=== PATIENT | female | born 1955 | race Caucasian/White ===

== ENCOUNTER 2016-05-08 15:41 | Observation (INO) | payer MEDICARE, OTHER ==
[2016-05-08 17:17] LABS: HEMOGLOBIN 8.4 g/dL (12.0-15.5); HGB HCT DIFFERENCE -1.8; MEAN CORPUSCULAR HEMOGLOBIN 25.8 pg (27.0-33.4); MEAN CORPUSCULAR VOLUME 83 fl (80-97); RED BLOOD COUNT 3.25 10^6/uL (3.72-5.28); RED CELL DISTRIBUTION WIDTH 16.2 % (11.5-14.0); WHITE BLOOD COUNT 12.2 10^3/uL (4.0-10.5)
[2016-05-08] MEDS ORDERED: (PENDING PHARMACY ID) (Oxycodone Hcl/Acetaminophen [Oxycodone-Acetaminophen 10-325] 1 TAB) PO SCH (17:30)
[2016-05-08] MEDS ORDERED: OXYCODONE-ACETAMINOPHEN 5-325 MG TABLET PO PRN (18:00)
[2016-05-08] MEDS ORDERED: OXYCODONE HCL IR 5 MG TABLET PO PRN (18:00)
[2016-05-08] MEDS ORDERED: OXYCODONE HCL IR 5 MG TABLET PO ONE (19:30)
[2016-05-08] MEDS ORDERED: CLONAZEPAM 1 MG TABLET PO ONE (19:45)
[2016-05-08] MEDS: IPRATROPIUM/ALBUTEROL 0.5-2.5 MG/3 ML AMPUL NEB PRN (20:08)
[2016-05-08] MEDS ORDERED: (PENDING PHARMACY ID) (Quetiapine Fumarate [Seroquel Xr] 200 MG) PO SCH (22:00)
[2016-05-08] MEDS ORDERED: (PENDING PHARMACY ID) (Bupropion Hcl [Bupropion Xl] 150 MG) PO SCH (22:00)
[2016-05-08] MEDS ORDERED: CLOPIDOGREL BISULFATE 75 MG TABLET PO SCH (22:00)
[2016-05-08] MEDS ORDERED: (PENDING PHARMACY ID) (Melatonin [Melatonin] 10 MG) PO SCH (22:00)
[2016-05-09] MEDS: BUDESONIDE/FORMOTEROL 160-4.5 MCG 60 PUFF/6 GM MDI IH SCH ×2 (00:15→09:37)
[2016-05-09] MEDS: OXYCODONE HCL SR 10 MG TABLET PO SCH ×3 (00:15→13:26)
[2016-05-09] MEDS: IPRATROPIUM/ALBUTEROL 0.5-2.5 MG/3 ML AMPUL NEB PRN ×2 (05:39→14:05)
[2016-05-09 09:07] LABS: HEMATOCRIT 36.4 % (36.0-47.0); HGB HCT DIFFERENCE -2.2; MEAN CORPUSCULAR HEMOGLOBIN 26.7 pg (27.0-33.4); MEAN CORPUSCULAR HGB CONC 31.3 g/dL (32.0-36.0); MEAN CORPUSCULAR VOLUME 85 fl (80-97); RED BLOOD COUNT 4.27 10^6/uL (3.72-5.28); RED CELL DISTRIBUTION WIDTH 15.9 % (11.5-14.0); WHITE BLOOD COUNT 13.7 10^3/uL (4.0-10.5)
[2016-05-09 09:11] LABS: HEMOGLOBIN 11.4 g/dL (12.0-15.5)
[2016-05-09] MEDS: CLONAZEPAM 1 MG TABLET PO SCH ×2 (09:38→17:46)
[2016-05-09] MEDS ORDERED: ATENOLOL 50 MG TABLET PO SCH (10:00)
[2016-05-09] MEDS ORDERED: (PENDING PHARMACY ID) (Roflumilast [Daliresp 500 Mcg Tablet] 500 MCG) PO SCH (10:00)
[2016-05-09] MEDS ORDERED: (PENDING PHARMACY ID) (Tiotropium Br/Olodaterol Hcl [Stiolto Respimat Inhal Spray] 4 GM) IH SCH (10:00)
[2016-05-09] MEDS ORDERED: ZOLPIDEM TARTRATE 10 MG SL SCH (10:00)
[2016-05-09] MEDS ORDERED: (PENDING PHARMACY ID) (Ubidecarenone [Coq-10] 200 MG) PO SCH (10:00)
[2016-05-09] MEDS ORDERED: IRON POLYSACCHARIDES COMPLEX 150 MG CAPSULE PO SCH (10:00)
[2016-05-09] MEDS ORDERED: (PENDING PHARMACY ID) (Atenolol [Tenormin] 25 MG) PO SCH (10:00)
[2016-05-09] MEDS ORDERED: ROFLUMILAST 500 MCG TABLET PO SCH (10:00)
[2016-05-09] MEDS ORDERED: VALSARTAN 80 MG TABLET PO SCH (10:00)
[2016-05-09 17:43] VITALS: BP 114/55
--- NOTE | 2016-05-09 19:19 | PDOC H&P ---
History of Present Illness Admission Date/PCP: 05/08/16 15:42 HAZEL WYLIE, History of Present Illness: ROSALINDA SAGE is a 61 year old female, she was admitted because of severe anemia with hemoglobin of 7.1, iron deficiency type. She was seen in the office yesterday, she had a hemogram done result came back this morning showing 7.1, hemoglobin, she was admitted directly from home for observation and blood transfusion. She recently had colonoscopy done and it was negative Past Medical History Cardiac Medical History: Reports: Hyperlipidema, Hypertension Pulmonary Medical History: Reports: Chronic Obstructive Pulmonary Disease (COPD) , Pneumonia Neurological Medical History: Reports: Seizures Endocrine Medical History: Reports: Diabetes Mellitus Type 2 Malignancy Medical History: Reports: Lung Cancer - under no treatment Musculoskeltal Medical History: Reports: Arthritis Psychiatric Medical History: Reports: Depression Past Surgical History Past Surgical History: Reports: Appendectomy, Cardiac Catheterization, Section - x3, Cholecystectomy, Hysterectomy, Vascular Surgery - left femoral artery bypass Social History Smoking Status: Former Smoker Frequency of Alcohol Use: None Hx Recreational Drug Use: No Drugs: None Hx Prescription Drug Abuse: No Family History Family History: Reviewed & Not Pertinent, Hypertension, Malignancy Parental Family History Reviewed: Yes Children Family History Reviewed: Yes Sibling(s) Family History Reviewed.: Yes Medication/Allergy Home Medications: RX: Alendronate Sodium [Fosamax 70 mg Tablet] 70 mg PO CASTAÑEDA 10/06/14 RX: Atenolol [Tenormin] 25 mg PO DAILY 10/06/14 RX: Bupropion HCl [Bupropion Xl] 150 mg PO QHS 10/06/14 RX: Clopidogrel Bisulfate [Plavix 75 mg Tablet] 75 mg PO QHS 10/06/14 RX: Fentanyl [Duragesic 25 mcg/hr Transdermal Patch] 1 patch TOP Q72H 10/06/14 RX: Quetiapine Fumarate [Seroquel Xr] 200 mg PO QHS 10/06/14 RX: Ubidecarenone [Coq-10] 200 mg PO DAILY 10/06/14 Zolpidem Tartrate [Edluar SL 10 mg Tablet] 10 mg SL QHS #0 10/06/14 Levofloxacin [Levaquin] 750 mg PO DAILY #14 tablet 10/12/14 Linezolid [Zyvox 600 mg Tablet] 600 mg PO Q12 #14 tablet 10/12/14 RX: Melatonin 10 mg PO QHS 08/18/15 RX: Roflumilast [Daliresp 500 mcg Tablet] 500 mcg PO DAILY 08/18/15 RX: Valsartan 80 mg PO DAILY 08/18/15 RX: Oxycodone HCl [Oxycontin] 40 mg PO Q8H 09/11/15 RX: Ipratropium/Albuterol Sulfate [Duoneb 3 ml Ampul] 3 ml NEB RTQ6HP PRN RX: Iron Polysaccharide Complex [Ferrex 150] 150 mg PO DAILY 04/13/16 RX: Oxycodone HCl/Acetaminophen [Oxycodone-Acetaminophen 10-325] 1 tab PO Q6H RX: Clonazepam [Klonopin] 1 mg PO BID #60 tablet 04/22/16 RX: Zolpidem Tartrate [Edluar SL 10 mg Tablet] 10 mg SL DAILY #30 tab.subl 04/22 RX: Budesonide/Formoterol Fumarate [Symbicort HFA 160-4.5 mcg Inhaler 6 gm] 1 puff IH Q12 05/08/16 RX: Tiotropium Br/Olodaterol HCl [Stiolto Respimat Inhal [place]] 4 gm IH DAILY Allergies/Adverse Reactions: adhesive tape Allergy (Verified 08/18/15 00:15) Review of Systems Constitutional: PRESENT: fatigue. ABSENT: chills, fever(s), headache(s), weight gain, weight loss Eyes: ABSENT: visual disturbances Ears: ABSENT: hearing changes Cardiovascular: PRESENT: dyspnea on exertion Respiratory: PRESENT: dyspnea Gastrointestinal: ABSENT: abdominal pain, constipation, diarrhea, hematemesis, hematochezia, nausea, vomiting Genitourinary: ABSENT: dysuria, hematuria Musculoskeletal: ABSENT: joint swelling Integumentary: ABSENT: rash, wounds Neurological: ABSENT: abnormal gait, abnormal speech, confusion, dizziness, focal weakness, syncope Psychiatric: ABSENT: anxiety, depression, homidical ideation, suicidal ideation Endocrine: ABSENT: cold intolerance, heat intolerance, menstrual abnormalities, polydipsia, polyuria Hematologic/Lymphatic: ABSENT: easy bleeding, easy bruising, lymphadenopathy Physical Exam Vital Signs: Temp Pulse Resp BP Pulse Ox 97.4 F 86 18 114/55 L 93 01/05/17 17:04 05/09/16 17:04 05/09/16 17:04 05/09/16 17:04 05/09/16 17:04 Intake & Output 05/08/16 05/09/16 05/10/16 06:59 06:59 06:59 Intake Total 1960 1232 Output Total 400 1150 Balance 1560 82 Weight 64.6 kg General appearance: PRESENT: no acute distress, well-developed, well-nourished Head exam: PRESENT: atraumatic, normocephalic Eye exam: PRESENT: conjunctiva pink, EOMI, PERRLA. ABSENT: scleral icterus Ear exam: PRESENT: normal external ear exam Mouth exam: PRESENT: moist, tongue midline Neck exam: PRESENT: full ROM. ABSENT: carotid bruit, JVD, lymphadenopathy, thyromegaly Respiratory exam: PRESENT: clear to auscultation sherry Cardiovascular exam: PRESENT: +S1, +S2 GI/Abdominal exam: PRESENT: normal bowel sounds, soft Rectal exam: PRESENT: deferred Neurological exam: PRESENT: alert, awake, oriented to person, oriented to place , oriented to time, oriented to situation, CN II-XII grossly intact. ABSENT: motor sensory deficit Psychiatric exam: PRESENT: appropriate affect, normal mood. ABSENT: homicidal ideation, suicidal ideation Skin exam: PRESENT: dry, intact, warm Results Laboratory Results: 05/09/16 08:45 05/08/16 05/09/16 17:05 08:45 WBC 13.7 H RBC 4.27 Hgb 11.4 L D Hct 36.4 MCV 85 MCH 26.7 L MCHC 31.3 L RDW 15.9 H Plt Count 297 Blood Type A POSITIVE Antibody Screen NEGATIVE Assessment & Plan - Diagnosis (1) Iron deficiency anemia Qualifiers: Iron deficiency anemia type: unspecified iron deficiency Qualified Code(s): D50.9 - Iron deficiency anemia, unspecified Is this a current diagnosis for this admission?: YesPlan: She is admitted for blood transfusion
[2016-05-09] MEDS ORDERED: ZOLPIDEM TARTRATE 5 MG TABLET PO SCH (22:00)
[2016-05-12] MEDS ORDERED: ALENDRONATE SODIUM 10 MG TABLET PO SCH (06:00)
[2016-05-12] MEDS ORDERED: (PENDING PHARMACY ID) (Alendronate Sodium [Fosamax 70 Mg Tablet] 70 MG) PO SCH (17:26)
== END 2016-05-09 19:25 | disposition home or self-care (01) ==
LOC: 4N 15:42
PROVIDERS: ADMIT Internal Medicine; ATTEND Internal Medicine
PROC: 30233N1 Transfusion of Nonautologous Red Blood Cells into Peripheral Vein, Percutaneous Approach (ICD-10-PCS; principal; 2016-05-08)
DX: D50.9 Iron deficiency anemia, unspecified (principal); E78.5 Hyperlipidemia, unspecified; I10 Essential (primary) hypertension; J44.9 Chronic obstructive pulmonary disease, unspecified; R56.9 Unspecified convulsions; E11.9 Type 2 diabetes mellitus without complications; M19.90 Unspecified osteoarthritis, unspecified site; F32.9 Major depressive disorder, single episode, unspecified; Z87.891 Personal history of nicotine dependence; Z85.118 Personal history of other malignant neoplasm of bronchus and lung
CPT/HCPCS: 86900; 86901; 36415 ×2; 36430; 86850; 85027 ×2; 86920; 94640 ×2; G0378 ×2; G0379; P9016 ×2; A9270 ×8; J3490; J7620

== ENCOUNTER 2016-07-21 00:55 | Inpatient (IN) | payer MEDICARE, OTHER ==
--- NOTE | 2016-07-21 01:03 | ER Document Report ---
ED Respiratory Problem - General Stated Complaint: DIFFICULTY BREATHING Time seen by provider: 01:03 Mode of Arrival: Medic Information source: Patient, Emergency Med Personnel TRAVEL OUTSIDE OF THE [place] IN LAST 30 DAYS: No - HPI Patient complains to provider of: Cough, Short of breath Onset: This evening Duration: Worse/persistent Quality of pain: No pain Context: Hx COPD Short of Breath: Severe Chest pain/discomfort: Tightness Cough: Nonproductive EMS treatments: Bronchodilators, Solumedrol Associated symptoms: Congestion, Cough, Difficulty breathing, Short of breath Similar symptoms previously: Yes Recently seen / treated by doctor: Yes Notes: Patient is a 61-year-old female with a history of COPD who arrives to the emergency room via EMS on BiPAP for respiratory distress, symptoms have been worsening throughout the day today, she reports a nonproductive cough, denies chest pain, patient also has a history of anemia and gets blood transfusions regularly for this - Related Data Allergies/Adverse Reactions: adhesive tape Allergy (Verified 08/18/15 00:15) Past Medical History - General Information source: Patient, Emergency Med Personnel - Social History Smoking Status: Unknown if Ever Smoked Family History: Reviewed & Not Pertinent, Hypertension, Malignancy - Past Medical History Cardiac Medical History: Reports: Hx Hypercholesterolemia, Hx Hypertension Pulmonary Medical History: Reports: Hx COPD, Hx Pneumonia Neurological Medical History: Reports: Hx Seizures Endocrine Medical History: Reports: Hx Diabetes Mellitus Type 2 Malignancy Medical History: Reports: Hx Lung Cancer - under no treatment Musculoskeltal Medical History: Reports Hx Arthritis Psychiatric Medical History: Reports: Hx Depression Past Surgical History: Reports: Hx Abdominal Surgery - ventral henria, Hx Appendectomy, Hx Cardiac Catheterization, Hx Section - x3, Hx Cholecystectomy, Hx Hysterectomy, Hx Vascular Surgery - left femoral artery bypass. Denies: Hx Cardiac Surgery - Immunizations Immunizations up to date: Yes Hx Diphtheria, Pertussis, Tetanus Vaccination: Yes Hx Pneumococcal Vaccination: 05/05/06 Review of Systems - Review of Systems Constitutional: No symptoms reported EENT: No symptoms reported Cardiovascular: No symptoms reported Respiratory: See HPI Gastrointestinal: No symptoms reported Genitourinary: No symptoms reported Female Genitourinary: No symptoms reported Musculoskeletal: No symptoms reported Skin: No symptoms reported Hematologic/Lymphatic: No symptoms reported Neurological/Psychological: No symptoms reported -: Yes All other systems reviewed and negative Physical Exam - Vital signs Vitals: Resp Pulse Ox 17 100 07/21/16 01:00 07/21/16 01:00 Interpretation: Tachycardic, Tachypneic - General In distress: Moderate - HEENT Head: Normocephalic, Atraumatic Eyes: Normal Conjunctiva: Normal Extraocular movements intact: Yes Eyelashes: Normal Pupils: PERRL Mucous membranes: Dry Pharynx: Normal Neck: Normal - Respiratory Respiratory status: Respiratory distress, Labored, Tachypnea Chest status: Nontender Breath sounds: Nonproductive cough, Rales, Rhonchi Chest palpation: Normal - Cardiovascular Rhythm: Regular, Tachycardia - Abdominal Inspection: Normal Distension: No distension Bowel sounds: Normal Tenderness: Nontender Organomegaly: No organomegaly - Back Back: Normal - Extremities General upper extremity: Normal inspection General lower extremity: Normal inspection - Neurological Neuro grossly intact: Yes Cognition: Normal Orientation: AAOx4 Yanna Coma Scale Eye Opening: Spontaneous [place] Coma Scale Verbal: Oriented [place] Coma Scale Motor: Obeys Commands [place] Coma Scale Total: 15 - Skin Skin Temperature: Warm Skin Moisture: Dry Skin Color: Pale Course - Re-evaluation Re-evalutation: 07/21/16 03:40 Patient was discussed with primary care provider who agrees to admit for further evaluation and treatment 07/21/16 03:40 Patient resting comfortably on BiPAP, vital signs are stable, no complaints - Vital Signs Vital signs: Temp Pulse Resp BP Pulse Ox 24 H 111/59 L 100 07/21/16 01:02 07/21/16 01:01 07/21/16 01:02 - Laboratory Result Diagrams: 07/21/16 01:10 07/21/16 02:41 Laboratory results interpreted by me: 07/21/16 07/21/16 07/21/16 01:10 01:10 01:10 WBC 22.3 H RBC 2.86 L Hgb 7.9 L Hct 25.1 L MCHC 31.6 L RDW 15.8 H Seg Neuts % (Manual) 90 H Lymphocytes % (Manual) 5 L Abs Neuts (Manual) 20.1 H VBG pCO2 64.5 H VBG HCO3 37.6 H Total Protein Albumin Urine Ascorbic Acid Crossmatch See Detail 07/21/16 07/21/16 02:41 02:50 WBC RBC Hgb Hct MCHC RDW Seg Neuts % (Manual) Lymphocytes % (Manual) Abs Neuts (Manual) VBG pCO2 VBG HCO3 Total Protein 5.6 L Albumin 3.2 L Urine Ascorbic Acid 40 H Crossmatch - Diagnostic Test Radiology reviewed: Image reviewed, Reports reviewed - EKG Interpretation by Me EKG shows normal: Sinus rhythm Rate: Tachycardia Critical Care Note - Critical Care Note Total time excluding time spent on procedures (mins): 60 Comments: Patient arrived in respiratory distress on BiPAP, required frequent reevaluation , multiple breathing treatments, continued BiPAP, and admission to [facility] Discharge - Discharge Clinical Impression: Chronic obstructive pulmonary disease with acute exacerbation Acute and chronic respiratory failure ([id number]) Qualifiers: Respiratory failure complication: hypoxia and hypercapnia Qualified Code(s): J96.21 - Acute and chronic respiratory failure with hypoxia Pneumonia Qualifiers: Pneumonia type: due to unspecified organism Laterality: right Lung location: lower lobe of lung Qualified Code(s): J18.1 - Lobar pneumonia, unspecified organism Anemia Qualifiers: Anemia type: unspecified type Qualified Code(s): D64.9 - Anemia, unspecified Condition: Serious Disposition: ADMITTED INPATIENT [facility] Admitted: [facility]
[2016-07-21 01:32] LABS: VENOUS BLOOD BASE EXCESS 11.2 mmol/L; VENOUS BLOOD HCO3 37.6 mmol/L (20-32); VENOUS BLOOD PCO2 64.5 mmHg (35-63); VENOUS BLOOD PH 7.38 (7.30-7.42)
[2016-07-21 01:38] LABS: HEMATOCRIT 25.1 % (36.0-47.0); HGB HCT DIFFERENCE -1.4; MEAN CORPUSCULAR HEMOGLOBIN 27.7 pg (27.0-33.4); MEAN CORPUSCULAR HGB CONC 31.6 g/dL (32.0-36.0); MEAN CORPUSCULAR VOLUME 88 fl (80-97); RED BLOOD COUNT 2.86 10^6/uL (3.72-5.28); RED CELL DISTRIBUTION WIDTH 15.8 % (11.5-14.0); WHITE BLOOD COUNT 22.3 10^3/uL (4.0-10.5)
[2016-07-21 01:59] LABS: BASOPHILS % (MANUAL) 0 % (0-2); EOSINOPHILS % (MANUAL) 0 % (0-6); LYMPHOCYTES % (MANUAL) 5 % (13-45); TOTAL CELLS COUNTED 100
[2016-07-21 02:00] LABS: HYPOCHROMASIA SLIGHT; POLYCHROMASIA SLIGHT; TOXIC GRANULATION SLIGHT
[2016-07-21 02:01] LABS: ANISOCYTOSIS SLIGHT
[2016-07-21 02:03] LABS: HEMOGLOBIN 7.9 g/dL (12.0-15.5)
[2016-07-21] MEDS ORDERED: CEFTRIAXONE RTU 1 GM/D5W 50 ML IV ONE (02:42)
[2016-07-21] MEDS ORDERED: AZITHROMYCIN INJ 500 MG VIAL IV ONE (02:42)
[2016-07-21] MEDS ORDERED: NORMAL SALINE 250 ML IV PRN (02:43)
[2016-07-21 03:08] LABS: PROTHROMBIN TIME 12.9 SEC (11.4-15.4)
[2016-07-21 03:09] LABS: PARTIAL THROMBOPLASTIN TIME 29.2 SEC (23.5-35.8)
[2016-07-21 03:11] LABS: ALANINE AMINOTRANSFERASE 21 U/L (9-52); ALBUMIN 3.2 g/dL (3.5-5.0); ALKALINE PHOSPHATASE 66 U/L (38-126); ANION GAP 14 (5-19); ASPARTATE AMINO TRANSFERASE 18 U/L (14-36); BILIRUBIN,TOTAL 0.4 mg/dL (0.2-1.3); BLOOD UREA NITROGEN 14 mg/dL (7-20); CARBON DIOXIDE 29 mmol/L (22-30); CHLORIDE 98 mmol/L (98-107); CREATINE KINASE 73 U/L (30-135); CREATININE RESULT 0.75 mg/dL (0.52-1.25); GLUCOSE 102 mg/dL (75-110); POTASSIUM 4.1 mmol/L (3.6-5.0); SODIUM 140.8 mmol/L (137-145); TOTAL PROTEIN 5.6 g/dL (6.3-8.2)
[2016-07-21 03:16] LABS: APPEARANCE,URINE CLEAR; BILIRUBIN,URINE NEGATIVE (NEGATIVE); GLUCOSE, URINE NEGATIVE (NEGATIVE); KETONES,URINE NEGATIVE (NEGATIVE); LEUKOCYTE ESTERASE,URINE NEGATIVE (NEGATIVE); NITRITE,URINE NEGATIVE (NEGATIVE); PROTEIN,URINE NEGATIVE (NEGATIVE); URINE SPECIFIC GRAVITY 1.009; UROBILINOGEN,URINE NEGATIVE mg/dL (<2.0)
[2016-07-21 03:23] LABS: CREATINE KINASE MB 1.78 ng/mL (<4.55)
[2016-07-21 03:27] LABS: TROPONIN I < 0.012 ng/mL
[2016-07-21] MEDS ORDERED: CEFEPIME 2 GM/D5W RTU 50 ML IV SCH (08:00)
[2016-07-21 08:30] LABS: PROTHROMBIN TIME 13.1 SEC (11.4-15.4)
[2016-07-21 08:41] LABS: LIPASE 14.6 U/L (23-300); PHOSPHORUS 3.9 mg/dL (2.5-4.5)
[2016-07-21 08:46] LABS: AMYLASE < 30 U/L (30-110)
[2016-07-21] MEDS: IPRATROPIUM/ALBUTEROL 0.5-2.5 MG/3 ML AMPUL NEB SCH ×6 (08:58→23:36)
[2016-07-21 09:01] LABS: CREATINE KINASE MB 1.83 ng/mL (<4.55)
[2016-07-21 09:12] LABS: THYROID STIMULATING HORMONE 0.48 uIU/mL (0.47-4.68)
[2016-07-21 09:13] LABS: TROPONIN I < 0.012 ng/mL
[2016-07-21 10:27] LABS: ARTERIAL BLOOD BASE EXCESS 5.6 mmol/L; ARTERIAL BLOOD O2 SATURATION 97.4 % (94-98)
--- NOTE | 2016-07-21 12:10 | EKG REPORT ---
SEVERITY:- BORDERLINE ECG - SINUS TACHYCARDIA LOW VOLTAGE WITH RIGHT AXIS DEVIATION : Confirmed by: Bessy Belle MD 21-Jul-2016 12:09:32
[2016-07-21 15:07] LABS: APPEARANCE,URINE CLEAR; BILIRUBIN,URINE NEGATIVE (NEGATIVE); GLUCOSE, URINE NEGATIVE (NEGATIVE); KETONES,URINE NEGATIVE (NEGATIVE); LEUKOCYTE ESTERASE,URINE NEGATIVE (NEGATIVE); NITRITE,URINE NEGATIVE (NEGATIVE); PROTEIN,URINE NEGATIVE (NEGATIVE); URINE SPECIFIC GRAVITY 1.005; UROBILINOGEN,URINE NEGATIVE mg/dL (<2.0)
[2016-07-21] MEDS: LEVOFLOXACIN 750 MG/D5W RTU 750 MG/150 ML RTUPB IV SCH (15:17)
[2016-07-21] MEDS: CEFEPIME HCL 2 GM in DEXTROSE 5%-WATER 50 ML IV SCH ×2 (15:17→22:27)
--- NOTE | 2016-07-21 15:17 | PDOC H&P ---
History of Present Illness Admission Date/PCP: 07/21/16 07:46 HAZEL WYLIE MD History of Present Illness: ROSALINDA SAGE is a 61 year old female she is well-known to me, she has a history of chronic obstructive pulmonary disease she is on non-invasive positive pressure ventilation, she can emergency room last night because of shortness of breath, difficulty breathing, she was transferred from from home via EMS on BiPAP for 3 distress. The emergency room she was evaluated, chest x- ray was done, it showed patchy density in the right base. Blood gas on FiO2 of 4 L was done, pH 7.4, PCO2 51.2, PO2 is 98, bicarbonate is 31.7 this is consistent with mixed acid-base disorder. She was also found to have severe anemia with hemoglobin 7, she has a history of iron deficiency anemia on she was evaluated in the past with colonoscopy and EGD and no definitive etiology was found. Past Medical History Cardiac Medical History: Reports: Hyperlipidema, Hypertension Pulmonary Medical History: Reports: Chronic Obstructive Pulmonary Disease (COPD) , Pneumonia Neurological Medical History: Reports: Seizures Endocrine Medical History: Reports: Diabetes Mellitus Type 2 Malignancy Medical History: Reports: Lung Cancer - under no treatment Musculoskeltal Medical History: Reports: Arthritis Psychiatric Medical History: Reports: Depression Past Surgical History Past Surgical History: Reports: Appendectomy, Cardiac Catheterization, Section - x3, Cholecystectomy, Hysterectomy, Vascular Surgery - left femoral artery bypass Social History Smoking Status: Former Smoker Last Time Smoked: 3 years ago Frequency of Alcohol Use: None Hx Recreational Drug Use: No Drugs: None Hx Prescription Drug Abuse: No Family History Family History: Reviewed & Not Pertinent, Hypertension, Malignancy Parental Family History Reviewed: Yes Children Family History Reviewed: Yes Sibling(s) Family History Reviewed.: Yes Medication/Allergy Home Medications: Fentanyl [Duragesic 25 mcg/hr Transdermal Patch] 1 patch TOP Q72H 10/06/14 Zolpidem Tartrate [Edluar SL 10 mg Tablet] 10 mg SL QHS #0 10/06/14 Levofloxacin [Levaquin] 750 mg PO DAILY #14 tablet 10/12/14 Linezolid [Zyvox 600 mg Tablet] 600 mg PO Q12 #14 tablet 10/12/14 Albuterol Sulfate [Ventolin Hfa] 1 puff IH Q4HP PRN 07/21/16 Alendronate Sodium [Fosamax 70 mg Tablet] 70 mg PO CASTAÑEDA 07/21/16 Atenolol [Tenormin] 25 mg PO DAILY 07/21/16 Budesonide/Formoterol Fumarate [Symbicort Hfa 160-4.5 Mcg Inhaler 6 gm] 1 puff IH DAILY 07/21/16 Bupropion HCl [Bupropion Xl] 150 mg PO DAILY 07/21/16 Clonazepam [Klonopin 1 mg Tablet] 1 mg PO BID 07/21/16 Clopidogrel Bisulfate [Plavix 75 mg Tablet] 75 mg PO QPM 07/21/16 Docusate Sodium [Colace 100 mg Capsule] 100 mg PO DAILY 07/21/16 Ipratropium/Albuterol Sulfate [Duoneb 3 ml Ampul] 3 ml NEB RTQ4HP PRN 07/21/16 Iron Polysaccharide Complex [Ferrex 150] 150 mg PO DAILY 07/21/16 Oxycodone HCl [Oxycodone HCl ER] 40 mg PO Q8 07/21/16 Oxycodone HCl/Acetaminophen [Percocet 10-325 Mg Tablet] 1 tab PO Q6HP PRN Prochlorperazine Maleate [Compazine 10 mg Tablet] 10 mg PO TID 07/21/16 Quetiapine Fumarate [Seroquel Xr] 200 mg PO DAILY 07/21/16 Roflumilast [Daliresp 500 mcg Tablet] 500 mcg PO DAILY 07/21/16 Tiotropium Chauncey [Spiriva Handihaler 18 mcg/dose (30 Dose)] 1 cap IH DAILY Ubidecarenone [Co Q-10] 200 mg PO DAILY 07/21/16 Valsartan [Diovan 80 mg Tablet] 80 mg PO DAILY 07/21/16 Zolpidem Tartrate [Edluar SL 10 mg Tablet] 10 mg SL QHS 07/21/16 Allergies/Adverse Reactions: adhesive tape Allergy (Verified 08/18/15 00:15) Review of Systems Eyes: ABSENT: visual disturbances Ears: ABSENT: hearing changes Cardiovascular: ABSENT: chest pain, dyspnea on exertion, edema, orthropnea, palpitations Respiratory: PRESENT: dyspnea Gastrointestinal: ABSENT: as per HPI, abdominal pain, bloating, coffee ground emesis, constipation, diarrhea, dysphagia, heartburn, hematemesis, hematochezia , melena, nausea, vomiting, other Genitourinary: ABSENT: dysuria, hematuria Musculoskeletal: ABSENT: joint swelling Integumentary: ABSENT: rash, wounds Neurological: ABSENT: abnormal gait, abnormal speech, confusion, dizziness, focal weakness, syncope Psychiatric: ABSENT: anxiety, depression, homidical ideation, suicidal ideation Endocrine: ABSENT: cold intolerance, heat intolerance, menstrual abnormalities, polydipsia, polyuria Hematologic/Lymphatic: ABSENT: easy bleeding, easy bruising, lymphadenopathy Physical Exam Vital Signs: Temp Pulse Resp BP Pulse Ox 97.8 F 100 16 133/60 H 96 07/21/16 13:00 07/21/16 14:00 07/21/16 14:00 07/21/16 13:00 07/21/16 13:00 Intake & Output 07/20/16 07/21/16 07/22/16 06:59 06:59 06:59 Intake Total 300 Balance 300 General appearance: PRESENT: mild distress Head exam: PRESENT: atraumatic, normocephalic Eye exam: PRESENT: conjunctiva pink, EOMI, PERRLA Neck exam: PRESENT: full ROM Respiratory exam: PRESENT: rhonchi, other - On auscultation of the chest there is a equal air entry on both lung leong Cardiovascular exam: PRESENT: RRR, +S1, +S2 GI/Abdominal exam: PRESENT: normal bowel sounds, soft Rectal exam: PRESENT: deferred Neurological exam: PRESENT: alert, awake, oriented to person, oriented to place , oriented to time, oriented to situation, CN II-XII grossly intact. ABSENT: motor sensory deficit Psychiatric exam: PRESENT: appropriate affect, normal mood Skin exam: PRESENT: dry, intact, warm Results Laboratory Results: 07/21/16 07/21/16 07/21/16 08:09 08:09 08:09 Carbonic Acid HCO3/H2CO3 Ratio ABG pH ABG pCO2 ABG pO2 ABG HCO3 ABG O2 Saturation ABG Base Excess FiO2 Phosphorus 3.9 Magnesium 2.0 Ammonia < 8.7 L Amylase < 30 L Lipase 14.6 L TSH 0.48 Free T4 1.18 07/21/16 10:05 Carbonic Acid 1.54 H HCO3/H2CO3 Ratio 20:1 ABG pH 7.41 ABG pCO2 51.2 H ABG pO2 98.0 ABG HCO3 31.7 H ABG O2 Saturation 97.4 ABG Base Excess 5.6 FiO2 4.5L Phosphorus Magnesium Ammonia Amylase Lipase TSH Free T4 07/21/16 07/21/16 07/21/16 08:09 08:09 08:09 Creatine Kinase 119 CK-MB (CK-2) 1.83 Troponin I < 0.012 NT-Pro-B Natriuret Pep 444 Impressions: Chest X-Ray 07/21/16 01:01 IMPRESSION: COPD. PROBABLE EARLY INFILTRATE IN THE RIGHT LUNG BASE. Assessment & Plan - Diagnosis (1) Right lower lobe pneumonia Qualifiers: Pneumonia type: due to unspecified organism Qualified Code(s): J18.1 - Lobar pneumonia, unspecified organism Is this a current diagnosis for this admission?: YesPlan: She will be treated for community-acquired pneumonia, with intravenous Levaquin and cefepime (2) Chronic respiratory failure Qualifiers: Respiratory failure complication: hypercapnia Qualified Code(s): J96.12 - Chronic respiratory failure with hypercapnia Is this a current diagnosis for this admission?: YesPlan: Patient is on noninvasive positive pressure ventilation, trilogy at home breathing was supported initially the emergency room with BiPAP but at the moment she is not requiring the BiPAP machine. (3) Mixed acid base balance disorder Is this a current diagnosis for this admission?: Yes (4) Severe anemia Is this a current diagnosis for this admission?: YesPlan: She has severe anemia, hemoglobin was 7 when she arrived in the ER, she be transfused with 2 units of packed red blood cells. (5) Chronic obstructive lung disease Qualifiers: COPD type: COPD with acute exacerbation Qualified Code(s): J44.1 - Chronic obstructive pulmonary disease with (acute) exacerbation Is this a current diagnosis for this admission?: YesPlan: She will continue bronchodilators
[2016-07-21] MEDS: ENOXAPARIN SODIUM INJ 40 MG/0.4 ML DISP.SYRIN SUBCUT SCH (15:18)
[2016-07-21 15:25] LABS: URINE BARBITURATES SCREEN NEGATIVE; URINE METHADONE SCREEN NEGATIVE; URINE PHENCYCLIDINE SCREEN NEGATIVE
[2016-07-21 15:42] LABS: TROPONIN I < 0.012 ng/mL
[2016-07-21 15:48] LABS: URINE OPIATES LOW UNCONFIRMED POSITIVE
[2016-07-21] MEDS ORDERED: IPRATROPIUM/ALBUTEROL 0.5-2.5 MG/3 ML AMPUL NEB PRN (21:19)
[2016-07-21] MEDS ORDERED: ALBUTEROL SULFATE HFA (90 MCG/PUFF) 8 GM MDI (1 MDI/ER DISP) IH PRN (21:19)
[2016-07-21 21:49] LABS: CREATINE KINASE MB 2.43 ng/mL (<4.55)
[2016-07-21 21:53] LABS: TROPONIN I < 0.012 ng/mL
[2016-07-21] MEDS ORDERED: (PENDING PHARMACY ID) (Quetiapine Fumarate [Seroquel Xr] 200 MG) PO SCH (22:00)
[2016-07-21] MEDS ORDERED: CLOPIDOGREL BISULFATE 75 MG TABLET PO ONE (22:15)
[2016-07-21] MEDS: ZOLPIDEM TARTRATE 5 MG TABLET PO PRN (22:27)
[2016-07-22] MEDS: IPRATROPIUM/ALBUTEROL 0.5-2.5 MG/3 ML AMPUL NEB SCH ×6 (02:26→19:58)
[2016-07-22] MEDS ORDERED: ACETAMINOPHEN 325 MG TABLET PO PRN (07:56)
[2016-07-22] MEDS: ATENOLOL 50 MG TABLET PO SCH (09:34)
[2016-07-22] MEDS: BUPROPION HCL 75 MG TABLET PO SCH ×2 (09:35→21:51)
[2016-07-22] MEDS: ROFLUMILAST 500 MCG TABLET PO SCH (09:36)
[2016-07-22] MEDS: VALSARTAN 80 MG TABLET PO SCH (09:36)
[2016-07-22] MEDS: IRON POLYSACCHARIDES COMPLEX 150 MG CAPSULE PO SCH (09:36)
[2016-07-22] MEDS: PROCHLORPERAZINE MALEATE 10 MG TABLET PO SCH ×3 (09:37→18:13)
[2016-07-22] MEDS: CLONAZEPAM 1 MG TABLET PO SCH ×2 (09:37→16:28)
[2016-07-22] MEDS: DOCUSATE SODIUM 100 MG CAPSULE PO SCH (09:37)
[2016-07-22] MEDS: BUDESONIDE/FORMOTEROL 160-4.5 MCG 60 PUFF/6 GM MDI IH SCH (09:38)
[2016-07-22] MEDS: TIOTROPIUM BROMIDE DPI 5 CAP/KIT (18 MCG/CAP) IH SCH (09:38)
[2016-07-22] MEDS: ENOXAPARIN SODIUM INJ 40 MG/0.4 ML DISP.SYRIN SUBCUT SCH (09:39)
[2016-07-22] MEDS: CEFEPIME HCL 2 GM in DEXTROSE 5%-WATER 50 ML IV SCH ×2 (09:39→21:52)
[2016-07-22] MEDS: LEVOFLOXACIN 750 MG/D5W RTU 750 MG/150 ML RTUPB IV SCH (09:39)
[2016-07-22] MEDS ORDERED: (PENDING PHARMACY ID) (Bupropion Hcl [Bupropion Xl] 150 MG) PO SCH (10:00)
[2016-07-22] MEDS ORDERED: (PENDING PHARMACY ID) (Ubidecarenone [Co Q-10] 200 MG) PO SCH (10:00)
[2016-07-22] MEDS: CLOPIDOGREL BISULFATE 75 MG TABLET PO SCH (16:29)
--- NOTE | 2016-07-22 21:45 | PDOC PROGRESS REPORT ---
Subjective Progress Note for:: 07/22/16 Subjective:: Patient was seen by the bedside, she was admitted yesterday because of pneumonia. She is on IV antibiotic she felt nauseous today CT scan of the abdomen and pelvis was done today that showed hernia Physical Exam Vital Signs: Temp Pulse Resp BP Pulse Ox 97.3 F 81 20 146/62 H 99 07/22/16 19:01 07/22/16 19:58 07/22/16 19:58 07/22/16 19:01 07/22/16 19:58 Intake & Output 07/21/16 07/22/16 07/23/16 06:59 06:59 06:59 Intake Total 1255 787 Output Total 1200 1600 Balance 55 -813 Weight 62.5 kg 62.5 kg General appearance: PRESENT: no acute distress Eye exam: PRESENT: PERRLA Respiratory exam: PRESENT: clear to auscultation sherry Cardiovascular exam: PRESENT: +S1, +S2 GI/Abdominal exam: PRESENT: soft Neurological exam: PRESENT: alert Results Laboratory Results: 07/21/16 07/21/16 07/21/16 08:09 08:09 08:09 Creatine Kinase 119 CK-MB (CK-2) 1.83 Troponin I < 0.012 NT-Pro-B Natriuret Pep 444 07/21/16 07/21/16 07/21/16 14:41 14:41 21:13 Creatine Kinase 196 H 177 H CK-MB (CK-2) 2.60 Troponin I < 0.012 NT-Pro-B Natriuret Pep 07/21/16 21:13 Creatine Kinase CK-MB (CK-2) 2.43 Troponin I < 0.012 NT-Pro-B Natriuret Pep Impressions: Chest X-Ray 07/21/16 01:01 IMPRESSION: COPD. PROBABLE EARLY INFILTRATE IN THE RIGHT LUNG BASE. Abdomen/Pelvis CT 07/22/16 12:11 IMPRESSION: Large left lower quadrant hernia containing nonobstructed bowel loops Assessment & Plan - Diagnosis (1) Right lower lobe pneumonia Qualifiers: Pneumonia type: due to unspecified organism Qualified Code(s): J18.1 - Lobar pneumonia, unspecified organism Is this a current diagnosis for this admission?: YesPlan: Continue IV antibiotic (2) Chronic respiratory failure Qualifiers: Respiratory failure complication: hypercapnia Qualified Code(s): J96.12 - Chronic respiratory failure with hypercapnia Is this a current diagnosis for this admission?: Yes (3) Mixed acid base balance disorder Is this a current diagnosis for this admission?: Yes (4) Severe anemia Is this a current diagnosis for this admission?: Yes (5) Chronic obstructive lung disease Qualifiers: COPD type: COPD with acute exacerbation Qualified Code(s): J44.1 - Chronic obstructive pulmonary disease with (acute) exacerbation Is this a current diagnosis for this admission?: Yes
[2016-07-22] MEDS: QUETIAPINE FUMARATE 200 MG PO SCH (21:51)
[2016-07-22] MEDS: ZOLPIDEM TARTRATE 5 MG TABLET PO PRN (21:51)
[2016-07-22 22:16] LABS: ABSOLUTE BASOPHILS # (AUTO) 0.1 10^3/uL (0.0-0.2); ABSOLUTE EOSINOPHILS # (AUTO) 0.5 10^3/uL (0.0-0.6); ABSOLUTE LYMPHOCYTES (AUTO) 2.1 10^3/uL (0.5-4.7); ABSOLUTE NEUT (AUTO) 6.7 10^3/uL (1.7-8.2); BASOPHILS % (AUTO) 0.9 % (0-2); EOSINOPHILS % (AUTO) 4.4 % (0-6); HEMATOCRIT 29.5 % (36.0-47.0); HEMOGLOBIN 9.8 g/dL (12.0-15.5); HGB HCT DIFFERENCE -0.1; LYMPHOCYTES % (AUTO) 19.9 % (13-45); MEAN CORPUSCULAR HEMOGLOBIN 29.3 pg (27.0-33.4); MEAN CORPUSCULAR HGB CONC 33.2 g/dL (32.0-36.0); MEAN CORPUSCULAR VOLUME 88 fl (80-97); MONOCYTES % (AUTO) 9.8 % (3-13); RED BLOOD COUNT 3.33 10^6/uL (3.72-5.28); RED CELL DISTRIBUTION WIDTH 16.1 % (11.5-14.0); WHITE BLOOD COUNT 10.3 10^3/uL (4.0-10.5)
[2016-07-22 22:39] LABS: ALANINE AMINOTRANSFERASE 26 U/L (9-52); ALBUMIN 2.8 g/dL (3.5-5.0); ALKALINE PHOSPHATASE 54 U/L (38-126); ANION GAP 9 (5-19); ASPARTATE AMINO TRANSFERASE 17 U/L (14-36); BILIRUBIN,DIRECT 0.1 mg/dL (0.0-0.4); BILIRUBIN,TOTAL 0.2 mg/dL (0.2-1.3); BLOOD UREA NITROGEN 10 mg/dL (7-20); CALCIUM 8.6 mg/dL (8.4-10.2); CARBON DIOXIDE 31 mmol/L (22-30); CHLORIDE 102 mmol/L (98-107); CREATININE RESULT 0.67 mg/dL (0.52-1.25); GLUCOSE 83 mg/dL (75-110); SODIUM 142.2 mmol/L (137-145); TOTAL PROTEIN 4.9 g/dL (6.3-8.2)
[2016-07-23] MEDS: IPRATROPIUM/ALBUTEROL 0.5-2.5 MG/3 ML AMPUL NEB SCH ×3 (08:08→20:16)
[2016-07-23] MEDS: CEFEPIME HCL 2 GM in DEXTROSE 5%-WATER 50 ML IV SCH ×2 (09:28→21:09)
[2016-07-23] MEDS: VALSARTAN 80 MG TABLET PO SCH (09:30)
[2016-07-23] MEDS: LEVOFLOXACIN 750 MG TABLET PO SCH (09:30)
[2016-07-23] MEDS: IRON POLYSACCHARIDES COMPLEX 150 MG CAPSULE PO SCH (09:31)
[2016-07-23] MEDS: BUPROPION HCL 75 MG TABLET PO SCH ×2 (09:31→21:08)
[2016-07-23] MEDS: PROCHLORPERAZINE MALEATE 10 MG TABLET PO SCH ×3 (09:31→17:14)
[2016-07-23] MEDS: ROFLUMILAST 500 MCG TABLET PO SCH (09:31)
[2016-07-23] MEDS: CLONAZEPAM 1 MG TABLET PO SCH ×2 (09:31→17:14)
[2016-07-23] MEDS: DOCUSATE SODIUM 100 MG CAPSULE PO SCH (09:31)
[2016-07-23] MEDS: ATENOLOL 50 MG TABLET PO SCH (09:32)
[2016-07-23] MEDS: BUDESONIDE/FORMOTEROL 160-4.5 MCG 60 PUFF/6 GM MDI IH SCH (09:33)
[2016-07-23] MEDS: TIOTROPIUM BROMIDE DPI 5 CAP/KIT (18 MCG/CAP) IH SCH (09:33)
[2016-07-23] MEDS: ENOXAPARIN SODIUM INJ 40 MG/0.4 ML DISP.SYRIN SUBCUT SCH (09:34)
[2016-07-23] MEDS: OXYCODONE-ACETAMINOPHEN 5-325 MG TABLET PO PRN ×2 (13:24→21:08)
[2016-07-23] MEDS: CLOPIDOGREL BISULFATE 75 MG TABLET PO SCH (17:14)
[2016-07-23] MEDS: ZOLPIDEM TARTRATE 5 MG TABLET PO PRN (21:08)
[2016-07-23] MEDS: QUETIAPINE FUMARATE 200 MG PO SCH (21:09)
[2016-07-23] MEDS: NYSTATIN/DEXAMETH/DIPHEN SUSP 120 ML PO SCH (21:10)
--- NOTE | 2016-07-23 21:22 | PDOC PROGRESS REPORT ---
Subjective Progress Note for:: 07/23/16 Subjective:: Patient was seen by the bedside, she complained of sore mouth and malaise Physical Exam Vital Signs: Temp Pulse Resp BP Pulse Ox 97.7 F 92 18 122/71 97 07/23/16 19:16 07/23/16 19:16 07/23/16 19:16 07/23/16 19:16 07/23/16 19:16 Intake & Output 07/22/16 07/23/16 07/24/16 06:59 06:59 06:59 Intake Total 1255 1332 1060 Output Total 1200 3475 1800 Balance 80 -8623 -688 Weight 62.5 kg 65.8 kg General appearance: PRESENT: no acute distress Eye exam: PRESENT: PERRLA Respiratory exam: PRESENT: decreased breath sounds Cardiovascular exam: PRESENT: +S1, +S2 Neurological exam: PRESENT: alert, CN II-XII grossly intact Results Laboratory Results: 07/22/16 22:08 07/22/16 22:08 07/22/16 07/22/16 22:08 22:08 WBC 10.3 RBC 3.33 L Hgb 9.8 L Hct 29.5 L MCV 88 MCH 29.3 MCHC 33.2 RDW 16.1 H Plt Count 231 Seg Neutrophils % 65.0 Lymphocytes % 19.9 Monocytes % 9.8 Eosinophils % 4.4 Basophils % 0.9 Absolute Neutrophils 6.7 Absolute Lymphocytes 2.1 Absolute Monocytes 1.0 Absolute Eosinophils 0.5 Absolute Basophils 0.1 Sodium 142.2 Potassium 4.0 Chloride 102 Carbon Dioxide 31 H Anion Gap 9 BUN 10 Creatinine 0.67 Est GFR ( Amer) > 60 Est GFR (Non-Af Amer) > 60 Glucose 83 Calcium 8.6 Total Bilirubin 0.2 AST 17 ALT 26 Alkaline Phosphatase 54 Total Protein 4.9 L Albumin 2.8 L 07/21/16 21:26 Nasophary ([facility] Only) MRSA Surveillance Culture - Final NO MRSA RECOVERED 07/21/16 12:21 Sputum Gram Stain - Final 07/21/16 12:21 Sputum Sputum Culture - Final Pseudomonas Aeruginosa Normal Staci Absent 07/21/16 07/21/16 07/21/16 08:09 08:09 08:09 Creatine Kinase 119 CK-MB (CK-2) 1.83 Troponin I < 0.012 NT-Pro-B Natriuret Pep 444 07/21/16 07/21/16 07/21/16 14:41 14:41 21:13 Creatine Kinase 196 H 177 H CK-MB (CK-2) 2.60 Troponin I < 0.012 NT-Pro-B Natriuret Pep 07/21/16 21:13 Creatine Kinase CK-MB (CK-2) 2.43 Troponin I < 0.012 NT-Pro-B Natriuret Pep Impressions: Chest X-Ray 07/21/16 01:01 IMPRESSION: COPD. PROBABLE EARLY INFILTRATE IN THE RIGHT LUNG BASE. Abdomen/Pelvis CT 07/22/16 12:11 IMPRESSION: Large left lower quadrant hernia containing nonobstructed bowel loops Assessment & Plan - Diagnosis (1) Right lower lobe pneumonia Qualifiers: Pneumonia type: due to unspecified organism Qualified Code(s): J18.1 - Lobar pneumonia, unspecified organism Is this a current diagnosis for this admission?: YesPlan: Continue IV antibiotics (2) Chronic respiratory failure Qualifiers: Respiratory failure complication: hypercapnia Qualified Code(s): J96.12 - Chronic respiratory failure with hypercapnia Is this a current diagnosis for this admission?: Yes (3) Mixed acid base balance disorder Is this a current diagnosis for this admission?: Yes (4) Severe anemia Is this a current diagnosis for this admission?: Yes (5) Chronic obstructive lung disease Qualifiers: COPD type: COPD with acute exacerbation Qualified Code(s): J44.1 - Chronic obstructive pulmonary disease with (acute) exacerbation Is this a current diagnosis for this admission?: Yes
[2016-07-24] MEDS: OXYCODONE HCL IR 5 MG TABLET PO PRN ×2 (05:02→17:10)
[2016-07-24] MEDS: OXYCODONE-ACETAMINOPHEN 5-325 MG TABLET PO PRN ×2 (05:02→17:09)
[2016-07-24] MEDS: IPRATROPIUM/ALBUTEROL 0.5-2.5 MG/3 ML AMPUL NEB SCH ×3 (08:14→20:22)
[2016-07-24] MEDS: ENOXAPARIN SODIUM INJ 40 MG/0.4 ML DISP.SYRIN SUBCUT SCH (08:42)
[2016-07-24 08:48] LABS: ABSOLUTE BASOPHILS # (AUTO) 0.1 10^3/uL (0.0-0.2); ABSOLUTE EOSINOPHILS # (AUTO) 0.5 10^3/uL (0.0-0.6); ABSOLUTE LYMPHOCYTES (AUTO) 2.1 10^3/uL (0.5-4.7); ABSOLUTE MONOCYTES (AUTO) 0.7 10^3/uL (0.1-1.4); ABSOLUTE NEUT (AUTO) 4.6 10^3/uL (1.7-8.2); BASOPHILS % (AUTO) 0.9 % (0-2); HEMATOCRIT 31.9 % (36.0-47.0); HEMOGLOBIN 10.5 g/dL (12.0-15.5); HGB HCT DIFFERENCE -0.4; LYMPHOCYTES % (AUTO) 26.4 % (13-45); MEAN CORPUSCULAR HEMOGLOBIN 29.2 pg (27.0-33.4); MEAN CORPUSCULAR HGB CONC 32.9 g/dL (32.0-36.0); MEAN CORPUSCULAR VOLUME 89 fl (80-97); MONOCYTES % (AUTO) 9.2 % (3-13); RED BLOOD COUNT 3.59 10^6/uL (3.72-5.28); RED CELL DISTRIBUTION WIDTH 16.3 % (11.5-14.0); SEGMENTED NEUTROPHILS % (AUTO) 57.5 % (42-78); WHITE BLOOD COUNT 7.9 10^3/uL (4.0-10.5)
[2016-07-24 09:05] LABS: ALANINE AMINOTRANSFERASE 26 U/L (9-52); ALKALINE PHOSPHATASE 54 U/L (38-126); ASPARTATE AMINO TRANSFERASE 15 U/L (14-36); BILIRUBIN,DIRECT 0.2 mg/dL (0.0-0.4); BILIRUBIN,TOTAL 0.3 mg/dL (0.2-1.3); TOTAL PROTEIN 5.3 g/dL (6.3-8.2)
[2016-07-24] MEDS: TIOTROPIUM BROMIDE DPI 5 CAP/KIT (18 MCG/CAP) IH SCH (09:40)
[2016-07-24] MEDS: BUDESONIDE/FORMOTEROL 160-4.5 MCG 60 PUFF/6 GM MDI IH SCH (09:40)
[2016-07-24] MEDS: DOCUSATE SODIUM 100 MG CAPSULE PO SCH (09:41)
[2016-07-24] MEDS: VALSARTAN 80 MG TABLET PO SCH (09:42)
[2016-07-24] MEDS: LEVOFLOXACIN 750 MG TABLET PO SCH (09:42)
[2016-07-24] MEDS: CLONAZEPAM 1 MG TABLET PO SCH ×2 (09:43→17:06)
[2016-07-24] MEDS: ATENOLOL 50 MG TABLET PO SCH (09:43)
[2016-07-24] MEDS: IRON POLYSACCHARIDES COMPLEX 150 MG CAPSULE PO SCH (09:43)
[2016-07-24] MEDS: BUPROPION HCL 75 MG TABLET PO SCH ×2 (09:43→22:44)
[2016-07-24] MEDS: PROCHLORPERAZINE MALEATE 10 MG TABLET PO SCH ×3 (09:44→17:06)
[2016-07-24] MEDS: ROFLUMILAST 500 MCG TABLET PO SCH (09:44)
[2016-07-24] MEDS: NYSTATIN/DEXAMETH/DIPHEN SUSP 120 ML PO SCH ×4 (09:46→22:45)
[2016-07-24] MEDS: CEFEPIME HCL 2 GM in DEXTROSE 5%-WATER 50 ML IV SCH ×2 (09:47→22:46)
--- NOTE | 2016-07-24 16:54 | PDOC PROGRESS REPORT ---
Subjective Progress Note for:: 07/24/16 Subjective:: She was seen by the bedside, on IV antibiotic and also bronchodilators, Physical Exam Vital Signs: Temp Pulse Resp BP Pulse Ox 97.5 F 80 17 116/62 96 07/24/16 15:56 07/24/16 15:56 07/24/16 15:56 07/24/16 15:56 07/24/16 15:56 Intake & Output 07/23/16 07/24/16 07/25/16 06:59 06:59 06:59 Intake Total 1332 1755 Output Total 3475 3100 Balance -2143 -1349 Weight 65.8 kg 65.9 kg General appearance: PRESENT: no acute distress Head exam: PRESENT: atraumatic, normocephalic Eye exam: PRESENT: conjunctiva pink, EOMI, PERRLA Neck exam: PRESENT: full ROM Respiratory exam: PRESENT: decreased breath sounds Cardiovascular exam: PRESENT: RRR, +S1, +S2 Pulses: PRESENT: normal dorsalis pedis pul, +2 pedal pulses bilateral Vascular exam: PRESENT: normal capillary refill GI/Abdominal exam: PRESENT: normal bowel sounds, soft Rectal exam: PRESENT: deferred Neurological exam: PRESENT: alert, awake, oriented to person, oriented to place , oriented to time, oriented to situation, CN II-XII grossly intact Psychiatric exam: PRESENT: appropriate affect, normal mood Skin exam: PRESENT: dry, intact, warm Results Laboratory Results: 07/24/16 08:39 07/22/16 22:08 07/24/16 07/24/16 08:39 08:39 WBC 7.9 RBC 3.59 L Hgb 10.5 L Hct 31.9 L MCV 89 MCH 29.2 MCHC 32.9 RDW 16.3 H Plt Count 232 Seg Neutrophils % 57.5 Lymphocytes % 26.4 Monocytes % 9.2 Eosinophils % 6.0 Basophils % 0.9 Absolute Neutrophils 4.6 Absolute Lymphocytes 2.1 Absolute Monocytes 0.7 Absolute Eosinophils 0.5 Absolute Basophils 0.1 Total Bilirubin 0.3 AST 15 ALT 26 Alkaline Phosphatase 54 Total Protein 5.3 L Albumin 3.0 L 07/21/16 07/21/16 07/21/16 08:09 08:09 08:09 Creatine Kinase 119 CK-MB (CK-2) 1.83 Troponin I < 0.012 NT-Pro-B Natriuret Pep 444 07/21/16 07/21/16 07/21/16 14:41 14:41 21:13 Creatine Kinase 196 H 177 H CK-MB (CK-2) 2.60 Troponin I < 0.012 NT-Pro-B Natriuret Pep 07/21/16 21:13 Creatine Kinase CK-MB (CK-2) 2.43 Troponin I < 0.012 NT-Pro-B Natriuret Pep Impressions: Chest X-Ray 07/21/16 01:01 IMPRESSION: COPD. PROBABLE EARLY INFILTRATE IN THE RIGHT LUNG BASE. Abdomen/Pelvis CT 07/22/16 12:11 IMPRESSION: Large left lower quadrant hernia containing nonobstructed bowel loops Assessment & Plan - Diagnosis (1) Right lower lobe pneumonia Qualifiers: Pneumonia type: due to unspecified organism Qualified Code(s): J18.1 - Lobar pneumonia, unspecified organism Is this a current diagnosis for this admission?: YesPlan: She will continue IV antibiotic (2) Chronic respiratory failure Qualifiers: Respiratory failure complication: hypercapnia Qualified Code(s): J96.12 - Chronic respiratory failure with hypercapnia Is this a current diagnosis for this admission?: Yes (3) Mixed acid base balance disorder Is this a current diagnosis for this admission?: Yes (4) Severe anemia Is this a current diagnosis for this admission?: Yes (5) Chronic obstructive lung disease Qualifiers: COPD type: COPD with acute exacerbation Qualified Code(s): J44.1 - Chronic obstructive pulmonary disease with (acute) exacerbation Is this a current diagnosis for this admission?: Yes
[2016-07-24] MEDS: CLOPIDOGREL BISULFATE 75 MG TABLET PO SCH (17:05)
[2016-07-24] MEDS: ZOLPIDEM TARTRATE 5 MG TABLET PO PRN (22:46)
[2016-07-25] MEDS: OXYCODONE HCL IR 5 MG TABLET PO PRN ×3 (01:06→14:32)
[2016-07-25] MEDS: OXYCODONE-ACETAMINOPHEN 5-325 MG TABLET PO PRN ×3 (01:06→14:31)
[2016-07-25] MEDS: QUETIAPINE FUMARATE 200 MG PO SCH (03:07)
[2016-07-25] MEDS: IPRATROPIUM/ALBUTEROL 0.5-2.5 MG/3 ML AMPUL NEB SCH ×3 (08:42→20:44)
[2016-07-25] MEDS: BUDESONIDE/FORMOTEROL 160-4.5 MCG 60 PUFF/6 GM MDI IH SCH (10:00)
[2016-07-25] MEDS: TIOTROPIUM BROMIDE DPI 5 CAP/KIT (18 MCG/CAP) IH SCH (10:00)
[2016-07-25] MEDS: LEVOFLOXACIN 750 MG TABLET PO SCH (10:02)
[2016-07-25] MEDS: CLONAZEPAM 1 MG TABLET PO SCH ×2 (10:04→18:22)
[2016-07-25] MEDS: BUPROPION HCL 75 MG TABLET PO SCH ×2 (10:04→21:35)
[2016-07-25] MEDS: ATENOLOL 50 MG TABLET PO SCH (10:05)
[2016-07-25] MEDS: IRON POLYSACCHARIDES COMPLEX 150 MG CAPSULE PO SCH (10:05)
[2016-07-25] MEDS: VALSARTAN 80 MG TABLET PO SCH (10:08)
[2016-07-25] MEDS: DOCUSATE SODIUM 100 MG CAPSULE PO SCH (10:08)
[2016-07-25] MEDS: ROFLUMILAST 500 MCG TABLET PO SCH (10:08)
[2016-07-25] MEDS: PROCHLORPERAZINE MALEATE 10 MG TABLET PO SCH ×3 (10:09→18:23)
[2016-07-25] MEDS: NYSTATIN/DEXAMETH/DIPHEN SUSP 120 ML PO SCH ×4 (10:09→21:34)
[2016-07-25] MEDS: ENOXAPARIN SODIUM INJ 40 MG/0.4 ML DISP.SYRIN SUBCUT SCH (10:10)
[2016-07-25] MEDS: CEFEPIME HCL 2 GM in DEXTROSE 5%-WATER 50 ML IV SCH ×2 (10:14→21:51)
[2016-07-25] MEDS: CLOPIDOGREL BISULFATE 75 MG TABLET PO SCH (18:22)
[2016-07-25] MEDS ORDERED: OXYCODONE HCL SR 10 MG TABLET PO PRN (19:15)
--- NOTE | 2016-07-25 20:02 | PDOC DISCHARGE SUMMARY ---
General - Admit/Disc Date/PCP Admission Date/Primary Care Provider: 07/21/16 07:46 HAZEL WYLIE MD Discharge Date: 07/26/16 - Discharge Diagnosis (1) Pseudomonas pneumonia Is this a current diagnosis for this admission?: Yes (2) Right lower lobe pneumonia Is this a current diagnosis for this admission?: Yes (3) Chronic respiratory failure Is this a current diagnosis for this admission?: Yes (4) Mixed acid base balance disorder Is this a current diagnosis for this admission?: Yes (5) Severe anemia Is this a current diagnosis for this admission?: Yes (6) Chronic obstructive lung disease Is this a current diagnosis for this admission?: Yes - Additional Information Home Medications: RX: Fentanyl [Duragesic 25 mcg/hr Transdermal Patch] 1 patch TOP Q72H 10/06/14 Zolpidem Tartrate [Edluar SL 10 mg Tablet] 10 mg SL QHS #0 10/06/14 Levofloxacin [Levaquin] 750 mg PO DAILY #14 tablet 10/12/14 Linezolid [Zyvox 600 mg Tablet] 600 mg PO Q12 #14 tablet 10/12/14 RX: Albuterol Sulfate [Ventolin Hfa] 1 puff IH Q4HP PRN 07/21/16 RX: Alendronate Sodium [Fosamax 70 mg Tablet] 70 mg PO CASTAÑEDA 07/21/16 RX: Atenolol [Tenormin] 25 mg PO DAILY 07/21/16 RX: Budesonide/Formoterol Fumarate [Symbicort HFA 160-4.5 mcg Inhaler 6 gm] 1 puff IH DAILY 07/21/16 RX: Bupropion HCl [Bupropion Xl] 150 mg PO DAILY 07/21/16 RX: Clonazepam [Klonopin 1 mg Tablet] 1 mg PO BID 07/21/16 RX: Clopidogrel Bisulfate [Plavix 75 mg Tablet] 75 mg PO QPM 07/21/16 RX: Docusate Sodium [Colace 100 mg Capsule] 100 mg PO DAILY 07/21/16 RX: Ipratropium/Albuterol Sulfate [Duoneb 3 ml Ampul] 3 ml NEB RTQ4HP PRN RX: Iron Polysaccharide Complex [Ferrex 150] 150 mg PO DAILY 07/21/16 RX: Oxycodone HCl [Oxycodone HCl ER] 40 mg PO Q8 07/21/16 RX: Oxycodone HCl/Acetaminophen [Percocet 10-325 mg Tablet] 1 tab PO Q6HP PRN RX: Prochlorperazine Maleate [Compazine 10 mg Tablet] 10 mg PO TID 07/21/16 RX: Quetiapine Fumarate [Seroquel Xr] 200 mg PO QHS 07/21/16 RX: Roflumilast [Daliresp 500 mcg Tablet] 500 mcg PO DAILY 07/21/16 RX: Tiotropium [place] [Spiriva Handihaler 18 mcg/dose (30 Dose)] 1 cap IH DAILY 07/21/16 RX: Ubidecarenone [Co Q-10] 200 mg PO DAILY 07/21/16 RX: Valsartan [Diovan 80 mg Tablet] 80 mg PO DAILY 07/21/16 RX: Zolpidem Tartrate [Edluar SL 10 mg Tablet] 10 mg SL QHS 07/21/16 History of Present Illness History of Present Illness: ROSALINDA SAGE is a 61 year old female she is well-known to me, she has a history of chronic obstructive pulmonary disease she is on non-invasive positive pressure ventilation, she can emergency room last night because of shortness of breath, difficulty breathing, she was transferred from from home via EMS on BiPAP for 3 distress. The emergency room she was evaluated, chest x- ray was done, it showed patchy density in the right base. Blood gas on FiO2 of 4 L was done, pH 7.4, PCO2 51.2, PO2 is 98, bicarbonate is 31.7 this is consistent with mixed acid-base disorder. She was also found to have severe anemia with hemoglobin 7, she has a history of iron deficiency anemia on she was evaluated in the past with colonoscopy and EGD and no definitive etiology was found. Hospital Course Hospital Course: Patient was admitted because of severe anemia and pneumonia on the right lower lobe, she was treated empirically with IV Levaquin and cefepime, the sputum culture grew Pseudomonas that was resistant to Levaquin but sensitive to cefepime. She was transfused with 2 units of packed red blood cells pretransfusion hemoglobin was 7 and the post transfusion hemoglobin was 11 Physical Exam Vital Signs: Temp Pulse Resp BP Pulse Ox 97.5 F 89 19 110/57 L 95 07/25/16 15:25 07/25/16 19:00 07/25/16 15:25 07/25/16 15:25 07/25/16 15:25 Intake & Output 07/24/16 07/25/16 07/26/16 06:59 06:59 06:59 Intake Total 1755 2854 592 Output Total 3100 1550 1200 Balance -1345 1304 -608 Weight 65.9 kg 63.8 kg General appearance: PRESENT: no acute distress, well-developed, well-nourished Head exam: PRESENT: atraumatic, normocephalic Eye exam: PRESENT: conjunctiva pink, EOMI, PERRLA Ear exam: PRESENT: normal external ear exam Mouth exam: PRESENT: moist, tongue midline Neck exam: PRESENT: full ROM. ABSENT: carotid bruit, JVD, lymphadenopathy, thyromegaly Respiratory exam: PRESENT: clear to auscultation sherry Cardiovascular exam: PRESENT: RRR, +S1, +S2 Pulses: PRESENT: normal dorsalis pedis pul, +2 pedal pulses bilateral Vascular exam: PRESENT: normal capillary refill GI/Abdominal exam: PRESENT: normal bowel sounds, soft Rectal exam: PRESENT: deferred Neurological exam: PRESENT: alert, awake, oriented to person, oriented to place , oriented to time, oriented to situation, CN II-XII grossly intact Psychiatric exam: PRESENT: appropriate affect, normal mood Skin exam: PRESENT: dry, intact, warm Results Laboratory Results: 07/24/16 08:39 07/22/16 22:08 07/21/16 07/21/16 07/21/16 08:09 08:09 08:09 Creatine Kinase 119 CK-MB (CK-2) 1.83 Troponin I < 0.012 NT-Pro-B Natriuret Pep 444 07/21/16 07/21/16 07/21/16 14:41 14:41 21:13 Creatine Kinase 196 H 177 H CK-MB (CK-2) 2.60 Troponin I < 0.012 NT-Pro-B Natriuret Pep 07/21/16 21:13 Creatine Kinase CK-MB (CK-2) 2.43 Troponin I < 0.012 NT-Pro-B Natriuret Pep Impressions: Chest X-Ray 07/21/16 01:01 IMPRESSION: COPD. PROBABLE EARLY INFILTRATE IN THE RIGHT LUNG BASE. Abdomen/Pelvis CT 07/22/16 12:11 IMPRESSION: Large left lower quadrant hernia containing nonobstructed bowel loops
[2016-07-25] MEDS: ZOLPIDEM TARTRATE 5 MG TABLET PO PRN (21:37)
[2016-07-26] MEDS: OXYCODONE-ACETAMINOPHEN 5-325 MG TABLET PO PRN (02:01)
[2016-07-26] MEDS: QUETIAPINE FUMARATE 200 MG PO SCH (02:07)
[2016-07-26] MEDS: ENOXAPARIN SODIUM INJ 40 MG/0.4 ML DISP.SYRIN SUBCUT SCH (08:20)
[2016-07-26] MEDS: OXYCODONE HCL IR 5 MG TABLET PO PRN (08:21)
[2016-07-26] MEDS: IPRATROPIUM/ALBUTEROL 0.5-2.5 MG/3 ML AMPUL NEB SCH (08:22)
[2016-07-26] MEDS: PROCHLORPERAZINE MALEATE 10 MG TABLET PO SCH (09:29)
[2016-07-26] MEDS: LEVOFLOXACIN 750 MG TABLET PO SCH (09:29)
[2016-07-26] MEDS: IRON POLYSACCHARIDES COMPLEX 150 MG CAPSULE PO SCH (09:30)
[2016-07-26] MEDS: VALSARTAN 80 MG TABLET PO SCH (09:30)
[2016-07-26] MEDS: BUPROPION HCL 75 MG TABLET PO SCH (09:30)
[2016-07-26] MEDS: ROFLUMILAST 500 MCG TABLET PO SCH (09:31)
[2016-07-26] MEDS: DOCUSATE SODIUM 100 MG CAPSULE PO SCH (09:31)
[2016-07-26] MEDS: CLONAZEPAM 1 MG TABLET PO SCH (09:31)
[2016-07-26] MEDS: ATENOLOL 50 MG TABLET PO SCH (09:31)
[2016-07-26] MEDS: BUDESONIDE/FORMOTEROL 160-4.5 MCG 60 PUFF/6 GM MDI IH SCH (09:32)
[2016-07-26] MEDS: NYSTATIN/DEXAMETH/DIPHEN SUSP 120 ML PO SCH (09:33)
[2016-07-26] MEDS: CEFEPIME HCL 2 GM in DEXTROSE 5%-WATER 50 ML IV SCH (09:34)
[2016-07-26 10:06] VITALS: BP 133/60
[2016-07-26] MEDS: TIOTROPIUM BROMIDE DPI 5 CAP/KIT (18 MCG/CAP) IH SCH (10:16)
== END 2016-07-26 11:31 | disposition home or self-care (01) | DRG 177 ==
LOC: ER 00:55 → EH 03:53 → UNDOADMIN 03:53 → 3W 05:45 → EH 05:45 → 3W 07:46
PROVIDERS: ADMIT Internal Medicine; ATTEND Internal Medicine
PROC: 5A09457 Assistance with Respiratory Ventilation, 24-96 Consecutive Hours, Continuous Positive Airway Pressure (ICD-10-PCS; principal; 2016-07-21)
PROC: 30233N1 Transfusion of Nonautologous Red Blood Cells into Peripheral Vein, Percutaneous Approach (ICD-10-PCS; 2016-07-21)
PROC: 3E0F73Z Introduction of Anti-inflammatory into Respiratory Tract, Via Natural or Artificial Opening (ICD-10-PCS; 2016-07-21)
DX: J15.1 Pneumonia due to Pseudomonas (principal); J96.21 Acute and chronic respiratory failure with hypoxia; J96.22 Acute and chronic respiratory failure with hypercapnia; E87.4 Mixed disorder of acid-base balance; J44.1 Chronic obstructive pulmonary disease with (acute) exacerbation; D64.9 Anemia, unspecified; E78.5 Hyperlipidemia, unspecified; I10 Essential (primary) hypertension; E11.9 Type 2 diabetes mellitus without complications; M19.90 Unspecified osteoarthritis, unspecified site; F32.9 Major depressive disorder, single episode, unspecified; Z85.118 Personal history of other malignant neoplasm of bronchus and lung; Z79.899 Other long term (current) drug therapy; Z90.49 Acquired absence of other specified parts of digestive tract; Z90.710 Acquired absence of both cervix and uterus; Z87.891 Personal history of nicotine dependence; Z80.9 Family history of malignant neoplasm, unspecified; Z82.49 Family history of ischemic heart disease and other diseases of the circulatory system
CPT/HCPCS: 36415; 36430; 36600; 71010; 74176; 80053; 80076; 80307; 81001; 82140; 82150; 82550; 82553; 82803; 83690; 83735; 83880; 84100; 84439; 84443; 84484; 85025; 85610; 85730; 86850; 86900; 86901; 86920; 87040; 87070; 87077; 87086; 87186; 87205; 93005; 93010; 94660; 99291; J0456; J0692; J0696; J1642; J1650; J1956; J3490; J7620; P9016; S0183

== ENCOUNTER 2017-02-04 17:20 | Inpatient (IN) | payer MEDICARE, OTHER ==
[2017-02-04] MEDS ORDERED: INFLUENZA ADLT QUAD (36MOS+) 2017-18 VAC 0.5 ML SYR IM PRN (19:30)
[2017-02-04] MEDS ORDERED: (PENDING PHARMACY ID) (Oxycodone Hcl/Acetaminophen [Percocet 10-325 Mg Tablet] 1 TAB) PO PRN (20:07)
[2017-02-04 20:08] LABS: ARTERIAL BLOOD BASE EXCESS 4.5 mmol/L; ARTERIAL BLOOD O2 SATURATION 97.6 % (94-98)
--- NOTE | 2017-02-04 21:13 | RADIOLOGY REPORT (SQ) ---
EXAM DESCRIPTION: CHEST SINGLE VIEW COMPLETED DATE/TIME: 02/04/2017 8:34 pm REASON FOR STUDY: weakness to the lower extremities. COMPARISON: 07/21/2016 EXAM PARAMETERS: NUMBER OF VIEWS: One view. TECHNIQUE: Single frontal radiographic view of the chest acquired. RADIATION DOSE: NA LIMITATIONS: None. FINDINGS: LUNGS AND PLEURA: No acute opacities, masses or pneumothorax. Right basilar pleural thick ened. MEDIASTINUM AND HILAR STRUCTURES: Stable. HEART AND VASCULAR STRUCTURES: Stable. BONES: No acute findings. HARDWARE: Left chest port. OTHER: No other significant finding. IMPRESSION: NO ACUTE RADIOGRAPHIC FINDING IN THE CHEST. TECHNICAL DOCUMENTATION: JOB ID: [id number]
--- NOTE | 2017-02-04 21:14 | RADIOLOGY REPORT (SQ) ---
EXAM DESCRIPTION: CT HEAD WITHOUT COMPLETED DATE/TIME: 02/04/2017 8:39 pm REASON FOR STUDY: weakness to the lower extremities COMPARISON: 10/06/2014 TECHNIQUE: Axial images acquired through the brain without intravenous contrast. Images reviewed wi th bone, brain and subdural windows. Images stored on PACS. All CT scanners at this facility use dose modulation, iterative reconstruction, and/or weight based d osing when appropriate to reduce radiation dose to as low as reasonably achievable (ALARA). [facility]: Dose Right [facility]: CareDose [facility]: Dose Right [facility]: Teradose 4D [facility]: Smart Aligned [employer] RADIATION DOSE: Up-to-date CT equipment and radiation dose reduction techniques were employed. CTDIv ol: 64.6 mGy. DLP: 1163 mGy-cm. mGy. LIMITATIONS: None. FINDINGS: VENTRICLES: Normal size and contour. CEREBRUM: No masses. No hemorrhage. No midline shift. No evidence for acute infarction. Normal gra y/white matter differentiation. No areas of low density in the white matter. CEREBELLUM: No masses. No hemorrhage. No alteration of density. No evidence for acute infarction. EXTRAAXIAL SPACES: No fluid collections. No masses. ORBITS AND GLOBE: No intra- or extraconal masses. Normal contour of globe without masses. CALVARIUM: No fracture. PARANASAL SINUSES: No fluid or mucosal thickening. SOFT TISSUES: No mass or hematoma. OTHER: No other significant finding. IMPRESSION: No acute intracranial findings. EVIDENCE OF ACUTE STROKE: NO. COMMENT: Quality ID # [id number]: Final reports with documentation of one or more dose reduction techniques (e.g., Automated exposure control, adjustment of the mA and/or kV according to patient size, use of iterative reconstruction technique) TECHNICAL DOCUMENTATION: JOB ID: [id number] [employer]- All Rights Reserved
--- NOTE | 2017-02-04 21:25 | RADIOLOGY REPORT (SQ) ---
EXAM DESCRIPTION: CT LUMBAR SPINE WITHOUT COMPLETED DATE/TIME: 02/04/2017 8:39 pm REASON FOR STUDY: weakness to the lower extemities COMPARISON: None. TECHNIQUE: Axial images acquired through the lumbar spine without intravenous contrast. Images revie wed with lung, soft tissue and bone windows. Reconstructed coronal and sagittal MPR images reviewed. Images stored on PACS. All CT scanners at this facility use dose modulation, iterative reconstruction, and/or weight based d osing when appropriate to reduce radiation dose to as low as reasonably achievable (ALARA). [facility]: Dose Right [facility]: CareDose [facility]: Dose Right [facility]: Teradose 4D [facility]: [employer] RADIATION DOSE: mGy. LIMITATIONS: None. FINDINGS: SOFT TISSUES: No soft tissue swelling. No masses. SEGMENTATION: Normal. No transitional anatomy. ALIGNMENT: Normal. VERTEBRAL BODIES: No fractures. No dislocation. No acute findings. Minimal osteophytes DISCS: Minimal Degenerative changes. PEDICLES, TRANSVERSE PROCESSES: No fractures. No dislocation. No acute findings. FACETS, POSTERIOR ELEMENTS: No fractures. No dislocation. Mild Posterior element overgrowth. HARDWARE: None in the spine. VISUALIZED RIBS: No fractures. OTHER: No other significant finding. IMPRESSION: DEGENERATIVE CHANGES IN THE LUMBAR SPINE WITHOUT ACUTE FRACTURE OR DISLOCATION. TECHNICAL DOCUMENTATION: JOB ID: [id number] Quality ID # [id number]: Final reports with documentation of one or more dose reduction techniques (e.g., Au tomated exposure control, adjustment of the mA and/or kV according to patient size, use of iterative reconstruction technique) 2010 [employer]- All Rights Reserved
[2017-02-04] MEDS ORDERED: MELATONIN 30 MG PO SCH (22:00)
[2017-02-04] MEDS ORDERED: ZOLPIDEM TARTRATE 10 MG SL SCH (22:00)
[2017-02-04] MEDS ORDERED: (PENDING PHARMACY ID) (Bupropion Hcl [Bupropion Xl] 150 MG) PO SCH (22:00)
[2017-02-04] MEDS ORDERED: (PENDING PHARMACY ID) (Quetiapine Fumarate [Seroquel Xr] 200 MG) PO SCH (22:00)
[2017-02-04] MEDS ORDERED: (PENDING PHARMACY ID) (Doxepin Hcl [Silenor] 6 MG) PO SCH (22:00)
--- NOTE | 2017-02-04 22:02 | RADIOLOGY REPORT (SQ) ---
EXAM DESCRIPTION: CT SOFT TISSUE NECK WITHOUT COMPLETED DATE/TIME: 02/04/2017 8:39 pm REASON FOR STUDY: weakness to the lower extremities COMPARISON: None. TECHNIQUE: Noncontrast scanning from skull base through lung apices with review of bone, soft tissue and lung windows. Reconstructed coronal and sagittal MPR images reviewed. All images stored on PAC S. All CT scanners at this facility use dose modulation, iterative reconstruction, and/or weight based d osing when appropriate to reduce radiation dose to as low as reasonably achievable (ALARA). [facility]: Dose Right [facility]: CareDose [facility]: Dose Right [facility]: Teradose 4D [facility]: Smart [employer] RADIATION DOSE: Up-to-date CT equipment and radiation dose reduction techniques were employed. CTDIv ol: 10.9 mGy. DLP: 379 mGy-cm. mGy. LIMITATIONS: None. FINDINGS: SKULL BASE: Intact. MAJOR SALIVARY GLANDS: Right submandibular gland has been surgically resected. No solid or cystic ma sses. No inflammatory changes. LYMPHADENOPATHY: No bulky adenopathy. MUCOSAL MASSES OR ASYMMETRY: No mucosal masses or asymmetry. LARYNX/CORDS: No abnormal findings. LUNG APICES: Scattered calcified granulomas and mild subpleural scarring. BONES: Intact. THYROID: Normal size. No masses. PARANASAL SINUSES: Clear. OTHER: Left chest port. IMPRESSION: No acute findings. TECHNICAL DOCUMENTATION: JOB ID: [id number] Quality ID # [id number]: Final reports with documentation of one or more dose reduction techniques (e.g., Au tomated exposure control, adjustment of the mA and/or kV according to patient size, use of iterative reconstruction technique) 2010 [employer]- All Rights Reserved
[2017-02-04 22:16] LABS: ABSOLUTE BASOPHILS # (AUTO) 0.1 10^3/uL (0.0-0.2); ABSOLUTE EOSINOPHILS # (AUTO) 0.3 10^3/uL (0.0-0.6); ABSOLUTE LYMPHOCYTES (AUTO) 1.6 10^3/uL (0.5-4.7); ABSOLUTE MONOCYTES (AUTO) 0.8 10^3/uL (0.1-1.4); ABSOLUTE NEUT (AUTO) 6.2 10^3/uL (1.7-8.2); BASOPHILS % (AUTO) 1.5 % (0-2); EOSINOPHILS % (AUTO) 3.1 % (0-6); HEMATOCRIT 26.7 % (36.0-47.0); HEMOGLOBIN 9.3 g/dL (12.0-15.5); HGB HCT DIFFERENCE 1.2; MEAN CORPUSCULAR HEMOGLOBIN 32.5 pg (27.0-33.4); MEAN CORPUSCULAR HGB CONC 34.9 g/dL (32.0-36.0); MEAN CORPUSCULAR VOLUME 93 fl (80-97); MONOCYTES % (AUTO) 8.8 % (3-13); RED BLOOD COUNT 2.87 10^6/uL (3.72-5.28); RED CELL DISTRIBUTION WIDTH 13.1 % (11.5-14.0); SEGMENTED NEUTROPHILS % (AUTO) 68.6 % (42-78)
[2017-02-04] MEDS: BUPROPION HCL 75 MG TABLET PO SCH (22:43)
[2017-02-04] MEDS: CLOPIDOGREL BISULFATE 75 MG TABLET PO SCH (22:44)
[2017-02-04 22:46] LABS: ANION GAP 10 (5-19); BLOOD UREA NITROGEN 15 mg/dL (7-20); CALCIUM 9.1 mg/dL (8.4-10.2); CARBON DIOXIDE 29 mmol/L (22-30); CHLORIDE 99 mmol/L (98-107); CREATININE RESULT 0.83 mg/dL (0.52-1.25); GLUCOSE 118 mg/dL (75-110); SODIUM 137.6 mmol/L (137-145)
[2017-02-04] MEDS: OXYCODONE HCL IR 5 MG TABLET PO PRN (23:05)
[2017-02-04] MEDS: OXYCODONE-ACETAMINOPHEN 5-325 MG TABLET PO PRN (23:06)
[2017-02-04] MEDS: CLONAZEPAM 1 MG TABLET PO PRN (23:07)
[2017-02-05] MEDS: OXYCODONE HCL SR 40 MG TABLET PO SCH ×3 (03:00→17:45)
[2017-02-05] MEDS: NORMAL SALINE 1000 ML 1,000 ML IV PRN (05:14)
[2017-02-05 06:07] LABS: ALANINE AMINOTRANSFERASE 55 U/L (9-52); ALBUMIN 3.3 g/dL (3.5-5.0); ALKALINE PHOSPHATASE 81 U/L (38-126); ASPARTATE AMINO TRANSFERASE 92 U/L (14-36); BILIRUBIN,DIRECT 0.2 mg/dL (0.0-0.4); BILIRUBIN,TOTAL 0.2 mg/dL (0.2-1.3); TOTAL PROTEIN 5.2 g/dL (6.3-8.2)
[2017-02-05 06:44] LABS: ANION GAP 10 (5-19); BLOOD UREA NITROGEN 13 mg/dL (7-20); CARBON DIOXIDE 27 mmol/L (22-30); CHLORIDE 103 mmol/L (98-107); CREATININE RESULT 0.73 mg/dL (0.52-1.25); GLUCOSE 78 mg/dL (75-110); POTASSIUM 4.4 mmol/L (3.6-5.0); SODIUM 139.6 mmol/L (137-145)
[2017-02-05] MEDS: VALSARTAN 80 MG TABLET PO SCH (09:17)
[2017-02-05] MEDS: MULTIVITAMIN TABLET PO SCH (09:18)
[2017-02-05] MEDS: ROFLUMILAST 500 MCG TABLET PO SCH (09:18)
[2017-02-05] MEDS: BUPROPION HCL 75 MG TABLET PO SCH ×2 (09:19→21:39)
[2017-02-05] MEDS: ASPIRIN 81 MG TABLET, CHEWABLE PO SCH (09:19)
[2017-02-05] MEDS: IRON POLYSACCHARIDES COMPLEX 150 MG CAPSULE PO SCH (09:19)
[2017-02-05] MEDS: TIOTROPIUM BROMIDE DPI 5 CAP/KIT (18 MCG/CAP) IH SCH (09:19)
[2017-02-05] MEDS: ATENOLOL 50 MG TABLET PO SCH (09:19)
[2017-02-05] MEDS: BUDESONIDE/FORMOTEROL 160-4.5 MCG 60 PUFF/6 GM MDI IH SCH (09:20)
[2017-02-05] MEDS ORDERED: (PENDING PHARMACY ID) (Ubidecarenone [Co Q-10] 200 MG) PO SCH (10:00)
[2017-02-05] MEDS ORDERED: ACETAMINOPHEN 325 MG TABLET ONE (11:33)
[2017-02-05] MEDS: CLONAZEPAM 1 MG TABLET PO PRN (11:34)
[2017-02-05] MEDS: OXYCODONE HCL IR 5 MG TABLET PO PRN ×2 (15:46→21:45)
[2017-02-05] MEDS: ONDANSETRON 4 MG TAB.RAPDIS PO PRN (15:47)
[2017-02-05] MEDS: OXYCODONE-ACETAMINOPHEN 5-325 MG TABLET PO PRN ×2 (15:47→21:45)
--- NOTE | 2017-02-05 17:13 | PDOC H&P ---
History of Present Illness Admission Date/PCP: 02/04/17 17:20 HAZEL WYLIE MD History of Present Illness: ROSALINDA SAGE is a 62 year old female, she has multiple comorbid conditions including very severe COPD she came to the office with her spouse because of weakness, malaise, inability to perform activities of daily living. She had difficulty ambulating she can hardly walk any distance in the office without assistance. She has some weakness of the lower extremities but it seems that she has generalized weakness. She was admitted directly from the office into the hospital for evaluation. MRI of the spine could not be done because she has indwelling Port-A-Cath in place, CT scan of the lumbar spine on the neck was done, it did not show any significant spinal cord compression or any spinal stenosis that we explain the weakness of the lower extremities. The ABG that was done showed pH 7.30 PCO2 37.1 bicarbonate 32.2 this is consistent with chronic respiratory acidosis. Patient is supposed to be on noninvasive positive pressure ventilation, trilogy but she is not compliant with the use of this device. The respiratory acidosis is not fully compensated by the kidneys. I had a long discussion with the patient that she needed to be compliant with the noninvasive positive pressure ventilation because the weakness, the fatigue and the inability to perform activities of daily living is from the fact that she is acidotic. Past Medical History Cardiac Medical History: Reports: Hyperlipidema, Hypertension Pulmonary Medical History: Reports: Chronic Obstructive Pulmonary Disease (COPD) , Intubation, Pneumonia, Respiratory Failure, Other - Chronic respiratory failure Neurological Medical History: Reports: Seizures Malignancy Medical History: Reports: Lung Cancer - under no treatment Musculoskeltal Medical History: Reports: Arthritis Psychiatric Medical History: Reports: Depression Past Surgical History Past Surgical History: Reports: Appendectomy, Cardiac Catheterization, Section - x3, Cholecystectomy, Hysterectomy, Vascular Surgery - left femoral artery bypass Social History Smoking Status: Former Smoker Frequency of Alcohol Use: None Hx Recreational Drug Use: No Drugs: None Hx Prescription Drug Abuse: No Family History Family History: Reviewed & Not Pertinent, Hypertension, Malignancy Parental Family History Reviewed: Yes Children Family History Reviewed: Yes Sibling(s) Family History Reviewed.: Yes Medication/Allergy Home Medications: Alendronate Sodium [Fosamax 70 mg Tablet] 70 mg PO CASTAÑEDA@1000 02/04/17 Aspirin [Aspirin 81 mg Chewable Tablet] 81 mg PO DAILY 02/04/17 Atenolol [Tenormin] 25 mg PO DAILY 02/04/17 Budesonide/Formoterol Fumarate [Symbicort Hfa 160-4.5 Mcg Inhaler 6 gm] 1 puff IH DAILY 02/04/17 Bupropion HCl [Bupropion Xl] 150 mg PO QHS 02/04/17 Clonazepam [Klonopin 1 mg Tablet] 1 mg PO BIDP PRN 02/04/17 Clopidogrel Bisulfate [Plavix 75 mg Tablet] 75 mg PO QHS 02/04/17 Doxepin HCl [Silenor] 6 mg PO QHS 02/04/17 Iron Ps Complex/B12/Folic Acid [Ferrex 150 Forte Capsule] 1 each PO DAILY Melatonin 30 mg PO QHS 02/04/17 Multivit-Min/Iron/Folic/Lutein [Centrum Silver Women Tablet] 1 tab PO DAILY 07/19 Oxycodone HCl [Oxycodone HCl ER] 40 mg PO Q8A 02/04/17 Oxycodone HCl/Acetaminophen [Percocet 10-325 Mg Tablet] 1 tab PO Q6HP PRN Quetiapine Fumarate [Seroquel Xr] 200 mg PO QHS 02/04/17 Roflumilast [Daliresp 500 mcg Tablet] 500 mcg PO DAILY 02/04/17 Tiotropium [place] [Spiriva Handihaler 5 Cap/Kit (18 Mcg/Cap)] 1 cap IH DAILY Ubidecarenone [Co Q-10] 200 mg PO DAILY 02/04/17 Valsartan [Diovan 80 mg Tablet] 80 mg PO DAILY 02/04/17 Zolpidem Tartrate [Edluar SL 10 mg Tablet] 10 mg SL QHS 02/04/17 Allergies/Adverse Reactions: adhesive tape Allergy (Verified 08/18/15 00:15) Review of Systems Constitutional: PRESENT: anorexia, chills, fatigue Eyes: ABSENT: visual disturbances Ears: ABSENT: hearing changes Cardiovascular: PRESENT: dyspnea on exertion. ABSENT: as per HPI, chest pain, edema, orthropnea, palpitations, other Respiratory: ABSENT: cough, hemoptysis Gastrointestinal: ABSENT: abdominal pain, constipation, diarrhea, hematemesis, hematochezia, nausea, vomiting Genitourinary: ABSENT: dysuria, hematuria Musculoskeletal: ABSENT: joint swelling Integumentary: ABSENT: rash, wounds Neurological: PRESENT: weakness Psychiatric: PRESENT: anxiety, depression Endocrine: ABSENT: cold intolerance, heat intolerance, menstrual abnormalities, polydipsia, polyuria Hematologic/Lymphatic: ABSENT: easy bleeding, easy bruising, lymphadenopathy Physical Exam Vital Signs: Temp Pulse Resp BP Pulse Ox 97.7 F 83 22 H 106/50 L 97 02/05/17 11:16 02/05/17 14:00 02/05/17 11:16 02/05/17 11:16 02/05/17 11:16 Intake & Output 02/04/17 02/05/17 02/06/17 06:59 06:59 06:59 Intake Total 1200 Output Total 0 Balance 1200 Weight 66.2 kg General appearance: PRESENT: no acute distress Head exam: PRESENT: atraumatic, normocephalic Eye exam: PRESENT: conjunctiva pink, EOMI, PERRLA Ear exam: PRESENT: normal external ear exam Mouth exam: PRESENT: moist, tongue midline Neck exam: PRESENT: full ROM Respiratory exam: PRESENT: clear to auscultation sherry Cardiovascular exam: PRESENT: RRR, +S1, +S2 Vascular exam: PRESENT: normal capillary refill GI/Abdominal exam: PRESENT: normal bowel sounds, soft Rectal exam: PRESENT: deferred Neurological exam: PRESENT: alert, CN II-XII grossly intact Psychiatric exam: PRESENT: appropriate affect, normal mood Skin exam: PRESENT: dry, intact, warm Results Laboratory Results: 02/04/17 21:45 02/05/17 04:54 02/04/17 02/04/17 02/04/17 19:56 21:45 21:45 WBC 9.0 RBC 2.87 L Hgb 9.3 L Hct 26.7 L MCV 93 MCH 32.5 MCHC 34.9 RDW 13.1 Plt Count 211 Seg Neutrophils % 68.6 Lymphocytes % 18.0 Monocytes % 8.8 Eosinophils % 3.1 Basophils % 1.5 Absolute Neutrophils 6.2 Absolute Lymphocytes 1.6 Absolute Monocytes 0.8 Absolute Eosinophils 0.3 Absolute Basophils 0.1 Carbonic Acid 2.02 H HCO3/H2CO3 Ratio 15:1 ABG pH 7.30 L ABG pCO2 67.1 H ABG pO2 114.7 H ABG HCO3 32.2 H ABG O2 Saturation 97.6 ABG Base Excess 4.5 FiO2 28% Sodium 137.6 Potassium 4.0 Chloride 99 Carbon Dioxide 29 Anion Gap 10 BUN 15 Creatinine 0.83 Est GFR ( Amer) > 60 Est GFR (Non-Af Amer) > 60 Glucose 118 H Calcium 9.1 Iron 18.2 L TIBC 253 % Saturation 7 Ferritin 77.60 Total Bilirubin AST ALT Alkaline Phosphatase Total Protein Albumin 02/05/17 02/05/17 04:54 04:54 WBC RBC Hgb Hct MCV MCH MCHC RDW Plt Count Seg Neutrophils % Lymphocytes % Monocytes % Eosinophils % Basophils % Absolute Neutrophils Absolute Lymphocytes Absolute Monocytes Absolute Eosinophils Absolute Basophils Carbonic Acid HCO3/H2CO3 Ratio ABG pH ABG pCO2 ABG pO2 ABG HCO3 ABG O2 Saturation ABG Base Excess FiO2 Sodium 139.6 Potassium 4.4 Chloride 103 Carbon Dioxide 27 Anion Gap 10 BUN 13 Creatinine 0.73 Est GFR ( Amer) > 60 Est GFR (Non-Af Amer) > 60 Glucose 78 Calcium 9.0 Iron TIBC % Saturation Ferritin Total Bilirubin 0.2 AST 92 H ALT 55 H Alkaline Phosphatase 81 Total Protein 5.2 L Albumin 3.3 L Impressions: Chest X-Ray 02/04/17 00:00 IMPRESSION: NO ACUTE RADIOGRAPHIC FINDING IN THE CHEST. Head CT 02/04/17 00:00 IMPRESSION: No acute intracranial findings. EVIDENCE OF ACUTE STROKE: NO. Lumbar Spine CT 02/04/17 00:00 IMPRESSION: DEGENERATIVE CHANGES IN THE LUMBAR SPINE WITHOUT ACUTE FRACTURE OR DISLOCATION. Soft Tissue Neck CT 02/04/17 00:00 IMPRESSION: No acute findings. Assessment & Plan - Diagnosis (1) Chronic respiratory acidosis Is this a current diagnosis for this admission?: Yes Plan: She has chronic respiratory acidosis, she is encouraged to use the noninvasive operative pressure ventilation (2) Chronic respiratory failure Qualifiers: Respiratory failure complication: hypercapnia Qualified Code(s): J96.12 - Chronic respiratory failure with hypercapnia Is this a current diagnosis for this admission?: Yes (3) Generalized weakness Is this a current diagnosis for this admission?: Yes (4) Chronic obstructive pulmonary disease Qualifiers: COPD type: unspecified COPD Qualified Code(s): J44.9 - Chronic obstructive pulmonary disease, unspecified
--- NOTE | 2017-02-05 17:55 | PDOC DISCHARGE SUMMARY ---
General - Admit/Disc Date/PCP Admission Date/Primary Care Provider: 02/04/17 17:20 HAZEL WYLIE MD Discharge Date: 02/05/17 - Discharge Diagnosis (1) Chronic respiratory acidosis Is this a current diagnosis for this admission?: Yes (2) Chronic respiratory failure Is this a current diagnosis for this admission?: Yes (3) Generalized weakness Is this a current diagnosis for this admission?: Yes - Additional Information Discharge Diet: As Tolerated Discharge Activity: Activity As Tolerated Home Medications: Alendronate Sodium [Fosamax 70 mg Tablet] 70 mg PO CASTAÑEDA@1000 02/04/17 Aspirin [Aspirin 81 mg Chewable Tablet] 81 mg PO DAILY 02/04/17 Atenolol [Tenormin] 25 mg PO DAILY 02/04/17 Budesonide/Formoterol Fumarate [Symbicort HFA 160-4.5 mcg Inhaler 6 gm] 1 puff IH DAILY 02/04/17 Bupropion HCl [Bupropion Xl] 150 mg PO QHS 02/04/17 Clonazepam [Klonopin 1 mg Tablet] 1 mg PO BIDP PRN 02/04/17 Clopidogrel Bisulfate [Plavix 75 mg Tablet] 75 mg PO QHS 02/04/17 Doxepin HCl [Silenor] 6 mg PO QHS 02/04/17 Iron Ps Complex/B12/Folic Acid [Ferrex 150 Forte Capsule] 1 each PO DAILY Melatonin 30 mg PO QHS 02/04/17 Multivit-Min/Iron/Folic/Lutein [Centrum Silver Women Tablet] 1 tab PO DAILY 07/19 Oxycodone HCl [Oxycodone HCl ER] 40 mg PO Q8A 02/04/17 Oxycodone HCl/Acetaminophen [Percocet 10-325 mg Tablet] 1 tab PO Q6HP PRN Quetiapine Fumarate [Seroquel Xr] 200 mg PO QHS 02/04/17 Roflumilast [Daliresp 500 mcg Tablet] 500 mcg PO DAILY 02/04/17 Tiotropium [place] [Spiriva Handihaler 5 Cap/Kit (18 Mcg/Cap)] 1 cap IH DAILY Ubidecarenone [Co Q-10] 200 mg PO DAILY 02/04/17 Valsartan [Diovan 80 mg Tablet] 80 mg PO DAILY 02/04/17 Zolpidem Tartrate [Edluar SL 10 mg Tablet] 10 mg SL QHS 02/04/17 History of Present Illness History of Present Illness: ROSALINDA SAGE is a 62 year old female, she has multiple comorbid conditions including very severe COPD she came to the office with her spouse because of weakness, malaise, inability to perform activities of daily living. She had difficulty ambulating she can hardly walk any distance in the office without assistance. She has some weakness of the lower extremities but it seems that she has generalized weakness. She was admitted directly from the office into the hospital for evaluation. MRI of the spine could not be done because she has indwelling Port-A-Cath in place, CT scan of the lumbar spine on the neck was done, it did not show any significant spinal cord compression or any spinal stenosis that we explain the weakness of the lower extremities. The ABG that was done showed pH 7.30 PCO2 37.1 bicarbonate 32.2 this is consistent with chronic respiratory acidosis. Patient is supposed to be on noninvasive positive pressure ventilation, trilogy but she is not compliant with the use of this device. The respiratory acidosis is not fully compensated by the kidneys. I had a long discussion with the patient that she needed to be compliant with the noninvasive positive pressure ventilation because the weakness, the fatigue and the inability to perform activities of daily living is from the fact that she is acidotic. Hospital Course Hospital Course: Patient was admitted because of generalized weakness, ABG suggests chronic respiratory acidosis. She was advised to use the noninvasive positive pressure ventilation, trilogy on a regular basis, she will be discharged home with home health and PT. Physical Exam Vital Signs: Temp Pulse Resp BP Pulse Ox 97.4 F 81 16 136/50 H 100 02/05/17 15:34 02/05/17 15:34 02/05/17 15:34 02/05/17 15:34 02/05/17 15:34 Intake & Output 02/04/17 02/05/17 02/06/17 06:59 06:59 06:59 Intake Total 1200 1200 Output Total 0 Balance 1200 1200 Weight 66.2 kg General appearance: PRESENT: no acute distress Eye exam: PRESENT: PERRLA Respiratory exam: PRESENT: clear to auscultation sherry Cardiovascular exam: PRESENT: +S1, +S2 GI/Abdominal exam: PRESENT: soft Neurological exam: PRESENT: alert, CN II-XII grossly intact Results Laboratory Results: 02/04/17 21:45 02/05/17 04:54 02/04/17 02/04/17 02/04/17 19:56 21:45 21:45 WBC 9.0 RBC 2.87 L Hgb 9.3 L Hct 26.7 L MCV 93 MCH 32.5 MCHC 34.9 RDW 13.1 Plt Count 211 Seg Neutrophils % 68.6 Lymphocytes % 18.0 Monocytes % 8.8 Eosinophils % 3.1 Basophils % 1.5 Absolute Neutrophils 6.2 Absolute Lymphocytes 1.6 Absolute Monocytes 0.8 Absolute Eosinophils 0.3 Absolute Basophils 0.1 Carbonic Acid 2.02 H HCO3/H2CO3 Ratio 15:1 ABG pH 7.30 L ABG pCO2 67.1 H ABG pO2 114.7 H ABG HCO3 32.2 H ABG O2 Saturation 97.6 ABG Base Excess 4.5 FiO2 28% Sodium 137.6 Potassium 4.0 Chloride 99 Carbon Dioxide 29 Anion Gap 10 BUN 15 Creatinine 0.83 Est GFR ( Amer) > 60 Est GFR (Non-Af Amer) > 60 Glucose 118 H Calcium 9.1 Iron 18.2 L TIBC 253 % Saturation 7 Ferritin 77.60 Total Bilirubin AST ALT Alkaline Phosphatase Total Protein Albumin 02/05/17 02/05/17 04:54 04:54 WBC RBC Hgb Hct MCV MCH MCHC RDW Plt Count Seg Neutrophils % Lymphocytes % Monocytes % Eosinophils % Basophils % Absolute Neutrophils Absolute Lymphocytes Absolute Monocytes Absolute Eosinophils Absolute Basophils Carbonic Acid HCO3/H2CO3 Ratio ABG pH ABG pCO2 ABG pO2 ABG HCO3 ABG O2 Saturation ABG Base Excess FiO2 Sodium 139.6 Potassium 4.4 Chloride 103 Carbon Dioxide 27 Anion Gap 10 BUN 13 Creatinine 0.73 Est GFR ( Amer) > 60 Est GFR (Non-Af Amer) > 60 Glucose 78 Calcium 9.0 Iron TIBC % Saturation Ferritin Total Bilirubin 0.2 AST 92 H ALT 55 H Alkaline Phosphatase 81 Total Protein 5.2 L Albumin 3.3 L Impressions: Chest X-Ray 02/04/17 00:00 IMPRESSION: NO ACUTE RADIOGRAPHIC FINDING IN THE CHEST. Head CT 02/04/17 00:00 IMPRESSION: No acute intracranial findings. EVIDENCE OF ACUTE STROKE: NO. Lumbar Spine CT 02/04/17 00:00 IMPRESSION: DEGENERATIVE CHANGES IN THE LUMBAR SPINE WITHOUT ACUTE FRACTURE OR DISLOCATION. Soft Tissue Neck CT 02/04/17 00:00 IMPRESSION: No acute findings.
[2017-02-05] MEDS: SEROQUEL 200 MG PO SCH (21:38)
[2017-02-05] MEDS: CLOPIDOGREL BISULFATE 75 MG TABLET PO SCH (21:39)
[2017-02-06] MEDS: NORMAL SALINE 1000 ML 1,000 ML IV PRN ×3 (00:33→21:37)
[2017-02-06] MEDS: OXYCODONE HCL SR 40 MG TABLET PO SCH ×3 (01:29→19:59)
[2017-02-06] MEDS: ONDANSETRON 4 MG TAB.RAPDIS PO PRN (02:16)
[2017-02-06] MEDS: CLONAZEPAM 1 MG TABLET PO PRN ×2 (02:16→13:09)
[2017-02-06] MEDS: OXYCODONE HCL IR 5 MG TABLET PO PRN ×2 (06:23→15:37)
[2017-02-06] MEDS: ACETAMINOPHEN 325 MG TABLET PO PRN ×2 (06:23→14:51)
[2017-02-06] MEDS: OXYCODONE-ACETAMINOPHEN 5-325 MG TABLET PO PRN ×2 (06:23→21:42)
--- NOTE | 2017-02-06 10:43 | PDOC CONSULTATION ---
Consultation Consult Date: 02/06/17 Attending physician:: HAZEL WYLIE Consult reason:: Chronic respiratory failure hypercapnic and hypoxic History of Present Illness Admission Date/PCP: 02/04/17 17:20 HAZEL WYLIE MD History of Present Illness: 62-year-old female with chronic respiratory failure was admitted to the hospital straight from the office of her primary care physician where she complained of weakness particularly lower extremities but overall generalized weakness her subsequent workup has been negative for any neurological structural defect. She is on the trilogy ventilator at home but admittedly noncompliant. She has been asked by her primary care doctor myself and family to please improve the level of her compliance for her own survival. Past Medical History Cardiac Medical History: Reports: Hyperlipidema, Hypertension Pulmonary Medical History: Reports: Chronic Obstructive Pulmonary Disease (COPD) , Intubation, Pneumonia, Respiratory Failure, Other - Chronic respiratory failure Neurological Medical History: Reports: Seizures Malignancy Medical History: Reports: Lung Cancer - under no treatment Musculoskeltal Medical History: Reports: Arthritis Psychiatric Medical History: Reports: Depression Past Surgical History Past Surgical History: Reports: Appendectomy, Cardiac Catheterization, Section - x3, Cholecystectomy, Hysterectomy, Vascular Surgery - left femoral artery bypass Social History Information Source[facility] Lives with: Family Smoking Status: Former Smoker Cigarettes Packs Per Day: 2 Number of Years Smokin Passive smoke exposure as: Both Frequency of Alcohol Use: None Hx Recreational Drug Use: No Drugs: None Hx Prescription Drug Abuse: No Do you have pets?: No Have you had any respiratory illnesses as a child?: No Have you been exposed to any sick contacts recently?: No Have you travelled outside of [place] in the past 12 months?: No Family History Family History: Reviewed & Not Pertinent, Hypertension, Malignancy Parental Family History Reviewed: Yes Children Family History Reviewed: Yes Sibling(s) Family History Reviewed.: Yes Medication/Allergy Home Medications: Alendronate Sodium [Fosamax 70 mg Tablet] 70 mg PO CASTAÑEDA@1000 02/04/17 Aspirin [Aspirin 81 mg Chewable Tablet] 81 mg PO DAILY 02/04/17 Atenolol [Tenormin] 25 mg PO DAILY 02/04/17 Budesonide/Formoterol Fumarate [Symbicort HFA 160-4.5 mcg Inhaler 6 gm] 1 puff IH DAILY 02/04/17 Bupropion HCl [Bupropion Xl] 150 mg PO QHS 02/04/17 Clonazepam [Klonopin 1 mg Tablet] 1 mg PO BIDP PRN 02/04/17 Clopidogrel Bisulfate [Plavix 75 mg Tablet] 75 mg PO QHS 02/04/17 Doxepin HCl [Silenor] 6 mg PO QHS 02/04/17 Iron Ps Complex/B12/Folic Acid [Ferrex 150 Forte Capsule] 1 each PO DAILY Melatonin 30 mg PO QHS 02/04/17 Multivit-Min/Iron/Folic/Lutein [Centrum Silver Women Tablet] 1 tab PO DAILY 07/19 Oxycodone HCl [Oxycodone HCl ER] 40 mg PO Q8A 02/04/17 Oxycodone HCl/Acetaminophen [Percocet 10-325 mg Tablet] 1 tab PO Q6HP PRN Quetiapine Fumarate [Seroquel Xr] 200 mg PO QHS 02/04/17 Roflumilast [Daliresp 500 mcg Tablet] 500 mcg PO DAILY 02/04/17 Tiotropium [place] [Spiriva Handihaler 5 Cap/Kit (18 Mcg/Cap)] 1 cap IH DAILY Ubidecarenone [Co Q-10] 200 mg PO DAILY 02/04/17 Valsartan [Diovan 80 mg Tablet] 80 mg PO DAILY 02/04/17 Zolpidem Tartrate [Edluar SL 10 mg Tablet] 10 mg SL QHS 02/04/17 Allergies/Adverse Reactions: adhesive tape Allergy (Verified 08/18/15 00:15) Review of Systems ROS unobtainable: Due to mental status Physical Exam Vital Signs: Temp Pulse Resp BP Pulse Ox 98.2 F 105 H 28 H 154/63 H 100 02/06/17 07:35 02/06/17 07:35 02/06/17 07:35 02/06/17 07:35 02/06/17 07:35 Intake & Output 02/05/17 02/06/17 02/07/17 06:59 06:59 06:59 Intake Total 1200 3414 Output Total 0 600 Balance 1200 2814 Weight 66.2 kg 70.9 kg General appearance: PRESENT: no acute distress, disheveled, obese, well- developed Head exam: PRESENT: atraumatic, normocephalic Eye exam: PRESENT: conjunctiva pale, EOMI Mouth exam: PRESENT: dry mucosa, neck supple, tongue midline Neck exam: ABSENT: carotid bruit, JVD, lymphadenopathy, thyromegaly Respiratory exam: PRESENT: decreased breath sounds, prolonged expiratory phas, rhonchi, symmetrical, unlabored, wheezes. ABSENT: rales, retraction, stridor, tachypnea Cardiovascular exam: PRESENT: RRR, +S1, +S2. ABSENT: tachycardia Pulses: PRESENT: normal radial pulses GI/Abdominal exam: PRESENT: normal bowel sounds, soft. ABSENT: distended, guarding, mass, organolmegaly, rebound, tenderness Rectal exam: PRESENT: deferred Extremities exam: PRESENT: +1 edema Neurological exam: PRESENT: awake Psychiatric exam: PRESENT: flat affect Skin exam: PRESENT: dry, warm Results Laboratory Results: 02/04/17 21:45 02/05/17 04:54 Impressions: Chest X-Ray 02/04/17 00:00 IMPRESSION: NO ACUTE RADIOGRAPHIC FINDING IN THE CHEST. Head CT 02/04/17 00:00 IMPRESSION: No acute intracranial findings. EVIDENCE OF ACUTE STROKE: NO. Lumbar Spine CT 02/04/17 00:00 IMPRESSION: DEGENERATIVE CHANGES IN THE LUMBAR SPINE WITHOUT ACUTE FRACTURE OR DISLOCATION. Soft Tissue Neck CT 02/04/17 00:00 IMPRESSION: No acute findings. Assessment & Plan - Diagnosis (1) Chronic respiratory acidosis Is this a current diagnosis for this admission?: Yes Plan: Partially compensated (2) Chronic respiratory failure Qualifiers: Respiratory failure complication: hypercapnia Qualified Code(s): J96.12 - Chronic respiratory failure with hypercapnia Is this a current diagnosis for this admission?: Yes Plan: Employed the patient to use trilogy at home adjusted trilogy setting so it may be more comfortable for the patient (3) Acute and chronic respiratory failure ([id number]) Qualifiers: Respiratory failure complication: hypoxia and hypercapnia Qualified Code(s) : J96.21 - Acute and chronic respiratory failure with hypoxia Is this a current diagnosis for this admission?: Yes (4) Anemia Qualifiers: Anemia type: unspecified type Qualified Code(s): D64.9 - Anemia, unspecified Is this a current diagnosis for this admission?: Yes
[2017-02-06 10:52] LABS: ARTERIAL BLOOD BASE EXCESS 3.2 mmol/L; ARTERIAL BLOOD O2 SATURATION 96.8 % (94-98)
[2017-02-06] MEDS: BUDESONIDE/FORMOTEROL 160-4.5 MCG 60 PUFF/6 GM MDI IH SCH (11:08)
[2017-02-06] MEDS: ASPIRIN 81 MG TABLET, CHEWABLE PO SCH (11:09)
[2017-02-06] MEDS: BUPROPION HCL 75 MG TABLET PO SCH ×2 (11:09→21:42)
[2017-02-06] MEDS: TIOTROPIUM BROMIDE DPI 5 CAP/KIT (18 MCG/CAP) IH SCH (11:09)
[2017-02-06] MEDS: IRON POLYSACCHARIDES COMPLEX 150 MG CAPSULE PO SCH (11:10)
[2017-02-06] MEDS: VALSARTAN 80 MG TABLET PO SCH (11:10)
[2017-02-06] MEDS: ROFLUMILAST 500 MCG TABLET PO SCH (11:10)
[2017-02-06] MEDS: MULTIVITAMIN TABLET PO SCH (11:10)
[2017-02-06] MEDS: ATENOLOL 50 MG TABLET PO SCH (11:11)
[2017-02-06 11:21] LABS: ABSOLUTE BASOPHILS # (AUTO) 0.1 10^3/uL (0.0-0.2); ABSOLUTE EOSINOPHILS # (AUTO) 0.5 10^3/uL (0.0-0.6); ABSOLUTE LYMPHOCYTES (AUTO) 1.6 10^3/uL (0.5-4.7); ABSOLUTE MONOCYTES (AUTO) 0.8 10^3/uL (0.1-1.4); ABSOLUTE NEUT (AUTO) 7.6 10^3/uL (1.7-8.2); BASOPHILS % (AUTO) 0.6 % (0-2); EOSINOPHILS % (AUTO) 4.3 % (0-6); HEMATOCRIT 30.7 % (36.0-47.0); HEMOGLOBIN 10.4 g/dL (12.0-15.5); HGB HCT DIFFERENCE 0.5; MEAN CORPUSCULAR HEMOGLOBIN 31.9 pg (27.0-33.4); MEAN CORPUSCULAR HGB CONC 33.8 g/dL (32.0-36.0); MEAN CORPUSCULAR VOLUME 94 fl (80-97); MONOCYTES % (AUTO) 7.7 % (3-13); RED BLOOD COUNT 3.26 10^6/uL (3.72-5.28); RED CELL DISTRIBUTION WIDTH 13.5 % (11.5-14.0); SEGMENTED NEUTROPHILS % (AUTO) 72.4 % (42-78); WHITE BLOOD COUNT 10.5 10^3/uL (4.0-10.5)
[2017-02-06 11:46] LABS: ANION GAP 7 (5-19); BLOOD UREA NITROGEN 6 mg/dL (7-20); CALCIUM 9.2 mg/dL (8.4-10.2); CARBON DIOXIDE 28 mmol/L (22-30); CHLORIDE 108 mmol/L (98-107); GLUCOSE 85 mg/dL (75-110); MAGNESIUM 1.6 mg/dL (1.6-2.3); POTASSIUM 4.5 mmol/L (3.6-5.0); SODIUM 142.9 mmol/L (137-145)
[2017-02-06] MEDS: SEROQUEL 200 MG PO SCH (21:41)
[2017-02-06] MEDS: ZOLPIDEM TARTRATE 5 MG TABLET PO SCH (21:42)
[2017-02-06] MEDS: CLOPIDOGREL BISULFATE 75 MG TABLET PO SCH (21:42)
--- NOTE | 2017-02-06 22:24 | PDOC H&P ---
History of Present Illness Admission Date/PCP: 02/04/17 17:20 HAZEL WYLIE MD History of Present Illness: Patient was admitted initially for observation when she presented with lower extremity weakness, fatigue, generalized weakness on evaluation she was found to have chronic respiratory acidosis. She was supposed to be discharged home this morning but she felt acutely ill patient spouse does not feel comfortable enough to take her home. She was seen by pulmonary, she is presently on noninvasive positive pressure ventilation, she has not been compliant with device overTime she was encouraged by the manager transportation planning to be more compliant with the device. The discharge was canceled and she is now been admitted to the hospital for further evaluation. Past Medical History Cardiac Medical History: Reports: Hyperlipidema, Hypertension Pulmonary Medical History: Reports: Chronic Obstructive Pulmonary Disease (COPD) , Intubation, Pneumonia, Respiratory Failure, Other - Chronic respiratory failure Neurological Medical History: Reports: Seizures Malignancy Medical History: Reports: Lung Cancer - under no treatment Musculoskeltal Medical History: Reports: Arthritis Psychiatric Medical History: Reports: Depression Past Surgical History Past Surgical History: Reports: Appendectomy, Cardiac Catheterization, Section - x3, Cholecystectomy, Hysterectomy, Vascular Surgery - left femoral artery bypass Social History Lives with: Family Smoking Status: Former Smoker Cigarettes Packs Per Day: 2 Number of Years Smokin Frequency of Alcohol Use: None Hx Recreational Drug Use: No Drugs: None Hx Prescription Drug Abuse: No Family History Family History: Reviewed & Not Pertinent, Hypertension, Malignancy Parental Family History Reviewed: Yes Children Family History Reviewed: Yes Sibling(s) Family History Reviewed.: Yes Medication/Allergy Home Medications: Alendronate Sodium [Fosamax 70 mg Tablet] 70 mg PO CASTAÑEDA@1000 02/04/17 Aspirin [Aspirin 81 mg Chewable Tablet] 81 mg PO DAILY 02/04/17 Atenolol [Tenormin] 25 mg PO DAILY 02/04/17 Budesonide/Formoterol Fumarate [Symbicort HFA 160-4.5 mcg Inhaler 6 gm] 1 puff IH DAILY 02/04/17 Bupropion HCl [Bupropion Xl] 150 mg PO QHS 02/04/17 Clonazepam [Klonopin 1 mg Tablet] 1 mg PO BIDP PRN 02/04/17 Clopidogrel Bisulfate [Plavix 75 mg Tablet] 75 mg PO QHS 02/04/17 Doxepin HCl [Silenor] 6 mg PO QHS 02/04/17 Iron Ps Complex/B12/Folic Acid [Ferrex 150 Forte Capsule] 1 each PO DAILY Melatonin 30 mg PO QHS 02/04/17 Multivit-Min/Iron/Folic/Lutein [Centrum Silver Women Tablet] 1 tab PO DAILY 07/19 Oxycodone HCl [Oxycodone HCl ER] 40 mg PO Q8A 02/04/17 Oxycodone HCl/Acetaminophen [Percocet 10-325 mg Tablet] 1 tab PO Q6HP PRN Quetiapine Fumarate [Seroquel Xr] 200 mg PO QHS 02/04/17 Roflumilast [Daliresp 500 mcg Tablet] 500 mcg PO DAILY 02/04/17 Tiotropium [place] [Spiriva Handihaler 5 Cap/Kit (18 Mcg/Cap)] 1 cap IH DAILY Ubidecarenone [Co Q-10] 200 mg PO DAILY 02/04/17 Valsartan [Diovan 80 mg Tablet] 80 mg PO DAILY 02/04/17 Zolpidem Tartrate [Edluar SL 10 mg Tablet] 10 mg SL QHS 02/04/17 Allergies/Adverse Reactions: adhesive tape Allergy (Verified 08/18/15 00:15) Review of Systems Constitutional: PRESENT: weakness Cardiovascular: PRESENT: orthropnea Respiratory: PRESENT: cough Gastrointestinal: ABSENT: as per HPI, abdominal pain, bloating, coffee ground emesis, constipation, diarrhea, dysphagia, heartburn, hematemesis, hematochezia , melena, nausea, vomiting, other Genitourinary: ABSENT: dysuria, hematuria Musculoskeletal: ABSENT: joint swelling Integumentary: ABSENT: rash, wounds Neurological: ABSENT: abnormal gait, abnormal speech, confusion, dizziness, focal weakness, syncope Psychiatric: ABSENT: anxiety, depression, homidical ideation, suicidal ideation Endocrine: ABSENT: cold intolerance, heat intolerance, menstrual abnormalities, polydipsia, polyuria Hematologic/Lymphatic: ABSENT: easy bleeding, easy bruising, lymphadenopathy Physical Exam Vital Signs: Temp Pulse Resp BP Pulse Ox 98.1 F 80 16 138/54 H 100 02/06/17 19:57 02/06/17 20:37 02/06/17 19:57 02/06/17 19:57 02/06/17 19:57 Intake & Output 02/05/17 02/06/17 02/07/17 06:59 06:59 06:59 Intake Total 1200 3414 1418 Output Total 0 600 1100 Balance 1200 2814 318 Weight 66.2 kg 70.9 kg General appearance: PRESENT: mild distress Head exam: PRESENT: atraumatic, normocephalic Eye exam: PRESENT: conjunctiva pink, EOMI, PERRLA Ear exam: PRESENT: normal external ear exam Mouth exam: PRESENT: moist, tongue midline Neck exam: PRESENT: full ROM Respiratory exam: PRESENT: clear to auscultation sherry Cardiovascular exam: PRESENT: RRR, +S1, +S2 Pulses: PRESENT: normal dorsalis pedis pul, +2 pedal pulses bilateral Vascular exam: PRESENT: normal capillary refill GI/Abdominal exam: PRESENT: normal bowel sounds, soft Rectal exam: PRESENT: deferred Neurological exam: PRESENT: alert, CN II-XII grossly intact. ABSENT: motor sensory deficit Psychiatric exam: ABSENT: homicidal ideation, suicidal ideation Skin exam: PRESENT: dry, intact, warm. ABSENT: cyanosis, rash Results Laboratory Results: 02/06/17 11:08 02/06/17 11:08 02/06/17 02/06/17 02/06/17 10:42 11:08 11:08 WBC 10.5 RBC 3.26 L Hgb 10.4 L Hct 30.7 L MCV 94 MCH 31.9 MCHC 33.8 RDW 13.5 Plt Count 260 Seg Neutrophils % 72.4 Lymphocytes % 15.0 Monocytes % 7.7 Eosinophils % 4.3 Basophils % 0.6 Absolute Neutrophils 7.6 Absolute Lymphocytes 1.6 Absolute Monocytes 0.8 Absolute Eosinophils 0.5 Absolute Basophils 0.1 Carbonic Acid 2.02 H HCO3/H2CO3 Ratio 15:1 ABG pH 7.28 L ABG pCO2 67.1 H ABG pO2 102.6 H ABG HCO3 31.1 H ABG O2 Saturation 96.8 ABG Base Excess 3.2 FiO2 4.5L Sodium 142.9 Potassium 4.5 Chloride 108 H Carbon Dioxide 28 Anion Gap 7 BUN 6 L Creatinine 0.60 Est GFR ( Amer) > 60 Est GFR (Non-Af Amer) > 60 Glucose 85 Calcium 9.2 Magnesium 1.6 Impressions: Chest X-Ray 02/04/17 00:00 IMPRESSION: NO ACUTE RADIOGRAPHIC FINDING IN THE CHEST. Head CT 02/04/17 00:00 IMPRESSION: No acute intracranial findings. EVIDENCE OF ACUTE STROKE: NO. Lumbar Spine CT 02/04/17 00:00 IMPRESSION: DEGENERATIVE CHANGES IN THE LUMBAR SPINE WITHOUT ACUTE FRACTURE OR DISLOCATION. Soft Tissue Neck CT 02/04/17 00:00 IMPRESSION: No acute findings. Assessment & Plan - Diagnosis (1) Chronic respiratory acidosis Is this a current diagnosis for this admission?: Yes (2) Chronic respiratory failure Qualifiers: Respiratory failure complication: hypercapnia Qualified Code(s): J96.12 - Chronic respiratory failure with hypercapnia Is this a current diagnosis for this admission?: Yes (3) Generalized weakness Is this a current diagnosis for this admission?: Yes (4) Chronic obstructive pulmonary disease Qualifiers: COPD type: unspecified COPD Qualified Code(s): J44.9 - Chronic obstructive pulmonary disease, unspecified - Plan Summary Plan Summary: She is admitted for management
[2017-02-07] MEDS: OXYCODONE HCL SR 40 MG TABLET PO SCH ×3 (01:43→17:03)
[2017-02-07] MEDS: ACETAMINOPHEN 325 MG TABLET PO PRN ×2 (08:06→20:25)
[2017-02-07] MEDS: ASPIRIN 81 MG TABLET, CHEWABLE PO SCH (09:11)
[2017-02-07] MEDS: BUPROPION HCL 75 MG TABLET PO SCH ×2 (09:12→21:10)
[2017-02-07] MEDS: VALSARTAN 80 MG TABLET PO SCH (09:12)
[2017-02-07] MEDS: IRON POLYSACCHARIDES COMPLEX 150 MG CAPSULE PO SCH (09:12)
[2017-02-07] MEDS: ATENOLOL 50 MG TABLET PO SCH (09:15)
[2017-02-07] MEDS: MULTIVITAMIN TABLET PO SCH (09:15)
[2017-02-07] MEDS: ROFLUMILAST 500 MCG TABLET PO SCH (09:16)
[2017-02-07] MEDS: BUDESONIDE/FORMOTEROL 160-4.5 MCG 60 PUFF/6 GM MDI IH SCH (09:17)
[2017-02-07] MEDS: TIOTROPIUM BROMIDE DPI 5 CAP/KIT (18 MCG/CAP) IH SCH (09:17)
[2017-02-07] MEDS: CLONAZEPAM 1 MG TABLET PO PRN ×2 (09:19→21:10)
--- NOTE | 2017-02-07 12:21 | PDOC PROGRESS REPORT ---
Subjective Progress Note for:: 02/07/17 Subjective:: Awake and alert significantly improved Physical Exam Vital Signs: Temp Pulse Resp BP Pulse Ox 97.9 F 88 22 H 153/57 H 100 02/07/17 07:42 02/07/17 07:42 02/07/17 07:42 02/07/17 07:42 02/07/17 07:42 Intake & Output 02/06/17 02/07/17 02/08/17 06:59 06:59 06:59 Intake Total 3414 2471 Output Total 600 1100 Balance 2814 1371 Weight 70.9 kg 71 kg General appearance: PRESENT: no acute distress, cooperative, disheveled, obese, well-developed Head exam: PRESENT: atraumatic, normocephalic Eye exam: PRESENT: conjunctiva pale, EOMI Mouth exam: PRESENT: dry mucosa, neck supple, tongue midline Neck exam: ABSENT: carotid bruit, JVD, lymphadenopathy, thyromegaly Respiratory exam: PRESENT: decreased breath sounds, prolonged expiratory phas, rhonchi, symmetrical, wheezes - Scattered. ABSENT: crackles, rales, retraction , stridor, tachypnea, unlabored Cardiovascular exam: PRESENT: RRR, +S1, +S2 Pulses: PRESENT: normal radial pulses GI/Abdominal exam: PRESENT: normal bowel sounds, soft. ABSENT: distended, guarding, mass, organolmegaly, rebound, tenderness Rectal exam: PRESENT: deferred Extremities exam: PRESENT: +2 edema Neurological exam: PRESENT: alert, awake Psychiatric exam: PRESENT: normal mood Skin exam: PRESENT: dry, pallor, warm Results Laboratory Results: 02/06/17 11:08 02/06/17 11:08 02/06/17 02/06/17 02/06/17 10:42 11:08 11:08 WBC 10.5 RBC 3.26 L Hgb 10.4 L Hct 30.7 L MCV 94 MCH 31.9 MCHC 33.8 RDW 13.5 Plt Count 260 Seg Neutrophils % 72.4 Lymphocytes % 15.0 Monocytes % 7.7 Eosinophils % 4.3 Basophils % 0.6 Absolute Neutrophils 7.6 Absolute Lymphocytes 1.6 Absolute Monocytes 0.8 Absolute Eosinophils 0.5 Absolute Basophils 0.1 Carbonic Acid 2.02 H HCO3/H2CO3 Ratio 15:1 ABG pH 7.28 L ABG pCO2 67.1 H ABG pO2 102.6 H ABG HCO3 31.1 H ABG O2 Saturation 96.8 ABG Base Excess 3.2 FiO2 4.5L Sodium 142.9 Potassium 4.5 Chloride 108 H Carbon Dioxide 28 Anion Gap 7 BUN 6 L Creatinine 0.60 Est GFR ( Amer) > 60 Est GFR (Non-Af Amer) > 60 Glucose 85 Calcium 9.2 Magnesium 1.6 Impressions: Chest X-Ray 02/04/17 00:00 IMPRESSION: NO ACUTE RADIOGRAPHIC FINDING IN THE CHEST. Head CT 02/04/17 00:00 IMPRESSION: No acute intracranial findings. EVIDENCE OF ACUTE STROKE: NO. Lumbar Spine CT 02/04/17 00:00 IMPRESSION: DEGENERATIVE CHANGES IN THE LUMBAR SPINE WITHOUT ACUTE FRACTURE OR DISLOCATION. Soft Tissue Neck CT 02/04/17 00:00 IMPRESSION: No acute findings. Assessment & Plan - Diagnosis (1) Chronic respiratory acidosis Is this a current diagnosis for this admission?: Yes (2) Chronic respiratory failure Qualifiers: Respiratory failure complication: hypercapnia Qualified Code(s): J96.12 - Chronic respiratory failure with hypercapnia Is this a current diagnosis for this admission?: Yes Plan: We have brought patient a small mask in hopes that this will be more comfortable and improve her compliance (3) Acute and chronic respiratory failure ([id number]) Qualifiers: Respiratory failure complication: hypoxia and hypercapnia Qualified Code(s) : J96.21 - Acute and chronic respiratory failure with hypoxia; J96.22 - Acute and chronic respiratory failure with hypercapnia; J96.22 - Acute and chronic respiratory failure with hypercapnia; J96.22 - Acute and chronic respiratory failure with hypercapnia Is this a current diagnosis for this admission?: Yes Plan: Patient or her noninvasive positive pressure ventilator all last night resulting in improved condition today (4) Anemia Qualifiers: Anemia type: unspecified type Qualified Code(s): D64.9 - Anemia, unspecified Is this a current diagnosis for this admission?: Yes
[2017-02-07] MEDS: NORMAL SALINE 1000 ML 1,000 ML IV PRN ×2 (12:27→21:53)
[2017-02-07 13:09] LABS: ABSOLUTE BASOPHILS # (AUTO) 0.1 10^3/uL (0.0-0.2); ABSOLUTE EOSINOPHILS # (AUTO) 0.3 10^3/uL (0.0-0.6); ABSOLUTE LYMPHOCYTES (AUTO) 1.6 10^3/uL (0.5-4.7); ABSOLUTE MONOCYTES (AUTO) 0.6 10^3/uL (0.1-1.4); ABSOLUTE NEUT (AUTO) 6.6 10^3/uL (1.7-8.2); BASOPHILS % (AUTO) 1.1 % (0-2); EOSINOPHILS % (AUTO) 3.2 % (0-6); HEMATOCRIT 29.9 % (36.0-47.0); HEMOGLOBIN 10.3 g/dL (12.0-15.5); LYMPHOCYTES % (AUTO) 17.3 % (13-45); MEAN CORPUSCULAR HEMOGLOBIN 31.7 pg (27.0-33.4); MEAN CORPUSCULAR HGB CONC 34.4 g/dL (32.0-36.0); MEAN CORPUSCULAR VOLUME 92 fl (80-97); MONOCYTES % (AUTO) 6.4 % (3-13); RED BLOOD COUNT 3.24 10^6/uL (3.72-5.28); RED CELL DISTRIBUTION WIDTH 13.3 % (11.5-14.0); WHITE BLOOD COUNT 9.2 10^3/uL (4.0-10.5)
[2017-02-07 13:23] LABS: ANION GAP 7 (5-19); BLOOD UREA NITROGEN 5 mg/dL (7-20); CALCIUM 8.9 mg/dL (8.4-10.2); CARBON DIOXIDE 26 mmol/L (22-30); CHLORIDE 107 mmol/L (98-107); CREATININE RESULT 0.54 mg/dL (0.52-1.25); GLUCOSE 107 mg/dL (75-110); POTASSIUM 4.7 mmol/L (3.6-5.0); SODIUM 140.3 mmol/L (137-145)
[2017-02-07] MEDS: SEROQUEL 200 MG PO SCH (21:09)
[2017-02-07] MEDS: ZOLPIDEM TARTRATE 5 MG TABLET PO SCH (21:09)
[2017-02-07] MEDS: CLOPIDOGREL BISULFATE 75 MG TABLET PO SCH (21:10)
--- NOTE | 2017-02-07 23:57 | PDOC PROGRESS REPORT ---
Subjective Progress Note for:: 02/07/17 Subjective:: Patient continues to require noninvasive positive pressure ventilation, she seems to be tolerating the device quite well . She has chronic respiratory failure due to COPD there is associated chronic respiratory acidosis, chronic pain syndrome on narcotic Physical Exam Vital Signs: Temp Pulse Resp BP Pulse Ox 98.1 F 93 14 145/69 H 98 02/07/17 20:26 02/07/17 20:58 02/07/17 20:26 02/07/17 20:26 02/07/17 20:26 Intake & Output 02/06/17 02/07/17 02/08/17 06:59 06:59 06:59 Intake Total 3414 2471 1915 Output Total 600 1100 950 Balance 2814 1371 965 Weight 70.9 kg 71 kg General appearance: PRESENT: no acute distress Eye exam: PRESENT: PERRLA Respiratory exam: PRESENT: clear to auscultation sherry Cardiovascular exam: PRESENT: +S1, +S2 GI/Abdominal exam: PRESENT: soft Neurological exam: PRESENT: alert, CN II-XII grossly intact Results Laboratory Results: 02/07/17 13:00 02/07/17 13:00 02/07/17 02/07/17 13:00 13:00 WBC 9.2 RBC 3.24 L Hgb 10.3 L Hct 29.9 L MCV 92 MCH 31.7 MCHC 34.4 RDW 13.3 Plt Count 266 Seg Neutrophils % 72.0 Lymphocytes % 17.3 Monocytes % 6.4 Eosinophils % 3.2 Basophils % 1.1 Absolute Neutrophils 6.6 Absolute Lymphocytes 1.6 Absolute Monocytes 0.6 Absolute Eosinophils 0.3 Absolute Basophils 0.1 Sodium 140.3 Potassium 4.7 Chloride 107 Carbon Dioxide 26 Anion Gap 7 BUN 5 L Creatinine 0.54 Est GFR ( Amer) > 60 Est GFR (Non-Af Amer) > 60 Glucose 107 Calcium 8.9 Impressions: Chest X-Ray 02/04/17 00:00 IMPRESSION: NO ACUTE RADIOGRAPHIC FINDING IN THE CHEST. Head CT 02/04/17 00:00 IMPRESSION: No acute intracranial findings. EVIDENCE OF ACUTE STROKE: NO. Lumbar Spine CT 02/04/17 00:00 IMPRESSION: DEGENERATIVE CHANGES IN THE LUMBAR SPINE WITHOUT ACUTE FRACTURE OR DISLOCATION. Soft Tissue Neck CT 02/04/17 00:00 IMPRESSION: No acute findings. Assessment & Plan - Diagnosis (1) Chronic respiratory acidosis Is this a current diagnosis for this admission?: Yes (2) Chronic respiratory failure Qualifiers: Respiratory failure complication: hypercapnia Qualified Code(s): J96.12 - Chronic respiratory failure with hypercapnia Is this a current diagnosis for this admission?: Yes (3) Generalized weakness Is this a current diagnosis for this admission?: Yes (4) Chronic obstructive pulmonary disease Qualifiers: COPD type: unspecified COPD Qualified Code(s): J44.9 - Chronic obstructive pulmonary disease, unspecified Is this a current diagnosis for this admission?: Yes - Plan Summary Plan Summary: She will continue with the noninvasive positive pressure ventilation,trilogy
[2017-02-08] MEDS: OXYCODONE HCL SR 40 MG TABLET PO SCH ×3 (02:09→18:34)
[2017-02-08] MEDS ORDERED: IPRATROPIUM/ALBUTEROL 0.5-2.5 MG/3 ML AMPUL NEB PRN (09:15)
[2017-02-08] MEDS: ROFLUMILAST 500 MCG TABLET PO SCH (09:57)
[2017-02-08] MEDS: VALSARTAN 80 MG TABLET PO SCH (09:58)
[2017-02-08] MEDS: IRON POLYSACCHARIDES COMPLEX 150 MG CAPSULE PO SCH (09:59)
[2017-02-08] MEDS: MULTIVITAMIN TABLET PO SCH (09:59)
[2017-02-08] MEDS: ASPIRIN 81 MG TABLET, CHEWABLE PO SCH (09:59)
[2017-02-08] MEDS: BUPROPION HCL 75 MG TABLET PO SCH ×2 (10:00→21:44)
[2017-02-08] MEDS: ATENOLOL 50 MG TABLET PO SCH (10:01)
[2017-02-08] MEDS: TIOTROPIUM BROMIDE DPI 5 CAP/KIT (18 MCG/CAP) IH SCH (10:02)
[2017-02-08] MEDS: BUDESONIDE/FORMOTEROL 160-4.5 MCG 60 PUFF/6 GM MDI IH SCH (10:03)
[2017-02-08] MEDS: CLONAZEPAM 1 MG TABLET PO PRN (12:07)
[2017-02-08] MEDS: OXYCODONE HCL IR 5 MG TABLET PO PRN ×2 (12:07→18:36)
[2017-02-08] MEDS: OXYCODONE-ACETAMINOPHEN 5-325 MG TABLET PO PRN ×2 (12:07→18:35)
[2017-02-08] MEDS: IPRATROPIUM/ALBUTEROL 0.5-2.5 MG/3 ML AMPUL NEB SCH ×2 (14:06→20:05)
--- NOTE | 2017-02-08 18:37 | PDOC PROGRESS REPORT ---
Subjective Progress Note for:: 02/08/17 Subjective:: She reported persistent of difficulty with breathing off the AVAPS device. Remain on supplemental oxygen via nasal cannula. No chest pain. No fever or chills. No nausea or vomiting, No abdominal pain. Physical Exam Vital Signs: Temp Pulse Resp BP Pulse Ox 97.9 F 94 20 150/75 H 95 02/08/17 11:32 02/08/17 14:06 02/08/17 14:06 02/08/17 11:32 02/08/17 14:06 Intake & Output 02/07/17 02/08/17 02/09/17 06:59 06:59 06:59 Intake Total 2471 3874 237 Output Total 1100 950 300 Balance 1371 2924 -63 Weight 71 kg 72.7 kg General appearance: PRESENT: no acute distress Head exam: PRESENT: atraumatic, normocephalic Eye exam: PRESENT: conjunctiva pink, EOMI, PERRLA. ABSENT: scleral icterus Mouth exam: PRESENT: moist Respiratory exam: PRESENT: decreased breath sounds, prolonged expiratory phas, rhonchi, wheezes Cardiovascular exam: PRESENT: RRR. ABSENT: diastolic murmur, rubs, systolic murmur GI/Abdominal exam: PRESENT: normal bowel sounds, soft. ABSENT: distended, guarding, mass, organolmegaly, rebound, tenderness Extremities exam: ABSENT: pedal edema Musculoskeletal exam: PRESENT: deformity - related to joint involvement with arthritis. Neurological exam: PRESENT: alert, awake, oriented to person, oriented to place , oriented to time, oriented to situation, CN II-XII grossly intact. ABSENT: motor sensory deficit Psychiatric exam: PRESENT: appropriate affect, normal mood. ABSENT: homicidal ideation, suicidal ideation Skin exam: PRESENT: dry, intact, warm. ABSENT: cyanosis, rash Results Laboratory Results: 02/07/17 13:00 02/07/17 13:00 Impressions: Chest X-Ray 02/04/17 00:00 IMPRESSION: NO ACUTE RADIOGRAPHIC FINDING IN THE CHEST. Head CT 02/04/17 00:00 IMPRESSION: No acute intracranial findings. EVIDENCE OF ACUTE STROKE: NO. Lumbar Spine CT 02/04/17 00:00 IMPRESSION: DEGENERATIVE CHANGES IN THE LUMBAR SPINE WITHOUT ACUTE FRACTURE OR DISLOCATION. Soft Tissue Neck CT 02/04/17 00:00 IMPRESSION: No acute findings. Assessment & Plan - Diagnosis (1) Acute and chronic respiratory failure ([id number]) Qualifiers: Respiratory failure complication: hypoxia and hypercapnia Qualified Code(s) : J96.21 - Acute and chronic respiratory failure with hypoxia; J96.22 - Acute and chronic respiratory failure with hypercapnia; J96.22 - Acute and chronic respiratory failure with hypercapnia; J96.22 - Acute and chronic respiratory failure with hypercapnia Is this a current diagnosis for this admission?: Yes Plan: See covering attending physician orders. (2) Acute exacerbation of chronic obstructive airways disease Is this a current diagnosis for this admission?: Yes Plan: See covering attending physician orders. (3) Chronic respiratory acidosis Is this a current diagnosis for this admission?: Yes Plan: See covering attending physician orders. (4) Generalized weakness Is this a current diagnosis for this admission?: Yes Plan: See covering attending physician orders. - Time Time Spent with patient: 25-34 minutes Medications reviewed and adjusted accordingly: Yes Anticipated discharge: Home with Homehealth Within: Other - Inpatient Certification Based on my medical assessment, after consideration of the patient's comorbidities, presenting symptoms, or acuity I expect that the services needed warrant INPATIENT care.: Yes I certify that my determination is in accordance with my understanding of Medicare's requirements for reasonable and necessary INPATIENT services [42 CFR 412.3e].: Yes Medical Necessity: Need Close Monitoring Due to Risk of Patient Decompensation, Need For Continuous Telemetry Monitoring, Need for Nebulizer Therapy and Monitoring of Response, Risk of Complication if Not Cared For in Hospital Post Hospital Care: D/C Pupil Personnel Services Director Documentation - Plan Summary Plan Summary: See covering attending physician orders.
[2017-02-08] MEDS: SEROQUEL 200 MG PO SCH (21:44)
[2017-02-08] MEDS: ZOLPIDEM TARTRATE 5 MG TABLET PO SCH (21:44)
[2017-02-08] MEDS: CLOPIDOGREL BISULFATE 75 MG TABLET PO SCH (21:44)
[2017-02-09] MEDS: OXYCODONE HCL SR 40 MG TABLET PO SCH ×3 (01:15→17:24)
[2017-02-09] MEDS: NORMAL SALINE 1000 ML 1,000 ML IV PRN (03:32)
[2017-02-09] MEDS: OXYCODONE-ACETAMINOPHEN 5-325 MG TABLET PO PRN ×3 (04:40→17:22)
[2017-02-09] MEDS: OXYCODONE HCL IR 5 MG TABLET PO PRN ×3 (04:40→17:24)
[2017-02-09] MEDS: IPRATROPIUM/ALBUTEROL 0.5-2.5 MG/3 ML AMPUL NEB SCH ×3 (08:43→20:11)
[2017-02-09] MEDS ORDERED: FAMOTIDINE 20 MG TABLET PO SCH (10:00)
[2017-02-09] MEDS ORDERED: (PENDING PHARMACY ID) (Alendronate Sodium [Fosamax 70 Mg Tablet] 70 MG) PO SCH (10:00)
[2017-02-09] MEDS ORDERED: FAMOTIDINE 20 MG TABLET PO ONE (10:30)
[2017-02-09] MEDS: ASPIRIN 81 MG TABLET, CHEWABLE PO SCH (10:38)
[2017-02-09] MEDS: BUPROPION HCL 75 MG TABLET PO SCH ×2 (10:39→21:23)
[2017-02-09] MEDS: ROFLUMILAST 500 MCG TABLET PO SCH (10:39)
[2017-02-09] MEDS: IRON POLYSACCHARIDES COMPLEX 150 MG CAPSULE PO SCH (10:40)
[2017-02-09] MEDS: VALSARTAN 80 MG TABLET PO SCH (10:40)
[2017-02-09] MEDS: MULTIVITAMIN TABLET PO SCH (10:40)
[2017-02-09] MEDS: ATENOLOL 50 MG TABLET PO SCH (10:41)
[2017-02-09] MEDS: BUDESONIDE/FORMOTEROL 160-4.5 MCG 60 PUFF/6 GM MDI IH SCH (10:42)
[2017-02-09] MEDS: TIOTROPIUM BROMIDE DPI 5 CAP/KIT (18 MCG/CAP) IH SCH (10:43)
[2017-02-09] MEDS: ONDANSETRON 4 MG TAB.RAPDIS PO PRN (17:24)
--- NOTE | 2017-02-09 18:12 | PDOC PROGRESS REPORT ---
Subjective Progress Note for:: 02/09/17 Subjective:: Patient denied chest pain but continue to experience difficulty with breathing. She is currently off IV fluid infusion due to increase rales, facial and leg swelling. Remain on AVAPS device support while sleeping and supplemental oxygen via nasal cannula while awake. No fever or chills. No abdominal pain, nausea or vomiting, No abdominal pain. Physical Exam Vital Signs: Temp Pulse Resp BP Pulse Ox 98.7 F 86 22 H 130/56 H 98 02/09/17 15:22 02/09/17 15:22 02/09/17 15:22 02/09/17 15:22 02/09/17 15:22 Intake & Output 02/08/17 02/09/17 02/10/17 06:59 06:59 06:59 Intake Total 3874 2797 245 Output Total 950 600 400 Balance 2924 2197 -155 Weight 72.7 kg 73.9 kg Physical Exam: General appearance: PRESENT: no acute distress Head exam: PRESENT: atraumatic, normocephalic Eye exam: PRESENT: conjunctiva pink, EOMI, PERRLA. ABSENT: scleral icterus Mouth exam: PRESENT: moist Respiratory exam: PRESENT: decreased breath sounds, prolonged expiratory phas, rhonchi, wheezes Cardiovascular exam: PRESENT: RRR. ABSENT: diastolic murmur, rubs, systolic murmur GI/Abdominal exam: PRESENT: normal bowel sounds, soft. ABSENT: distended, guarding, mass, organomegaly, rebound, tenderness Extremities exam: ABSENT: pedal edema Musculoskeletal exam: PRESENT: deformity - related to joint involvement with arthritis. Neurological exam: PRESENT: alert, awake, oriented to person, oriented to place , oriented to time, oriented to situation, CN II-XII grossly intact. ABSENT: motor sensory deficit Psychiatric exam: PRESENT: appropriate affect, normal mood. ABSENT: homicidal ideation, suicidal ideation Skin exam: PRESENT: dry, intact, warm. ABSENT: cyanosis, rash Results Laboratory Results: 02/07/17 13:00 02/07/17 13:00 Impressions: Chest X-Ray 02/04/17 00:00 IMPRESSION: NO ACUTE RADIOGRAPHIC FINDING IN THE CHEST. Head CT 02/04/17 00:00 IMPRESSION: No acute intracranial findings. EVIDENCE OF ACUTE STROKE: NO. Lumbar Spine CT 02/04/17 00:00 IMPRESSION: DEGENERATIVE CHANGES IN THE LUMBAR SPINE WITHOUT ACUTE FRACTURE OR DISLOCATION. Soft Tissue Neck CT 02/04/17 00:00 IMPRESSION: No acute findings. Assessment & Plan - Diagnosis (1) Acute and chronic respiratory failure ([id number]) Qualifiers: Respiratory failure complication: hypoxia and hypercapnia Qualified Code(s) : J96.21 - Acute and chronic respiratory failure with hypoxia; J96.22 - Acute and chronic respiratory failure with hypercapnia; J96.22 - Acute and chronic respiratory failure with hypercapnia; J96.22 - Acute and chronic respiratory failure with hypercapnia Is this a current diagnosis for this admission?: Yes (2) Acute exacerbation of chronic obstructive airways disease Is this a current diagnosis for this admission?: Yes (3) Chronic respiratory acidosis Is this a current diagnosis for this admission?: Yes (4) Generalized weakness Is this a current diagnosis for this admission?: Yes - Inpatient Certification Based on my medical assessment, after consideration of the patient's comorbidities, presenting symptoms, or acuity I expect that the services needed warrant INPATIENT care.: Yes I certify that my determination is in accordance with my understanding of Medicare's requirements for reasonable and necessary INPATIENT services [42 CFR 412.3e].: Yes Medical Necessity: Need Close Monitoring Due to Risk of Patient Decompensation, Need For Continuous Telemetry Monitoring, Need for Nebulizer Therapy and Monitoring of Response, Risk of Complication if Not Cared For in Hospital Post Hospital Care: D/C School Guidance Counselor Documentation - Plan Summary Plan Summary: See covering attending physician orders.
[2017-02-09] MEDS: CLOPIDOGREL BISULFATE 75 MG TABLET PO SCH (21:23)
[2017-02-09] MEDS: FAMOTIDINE 20 MG TABLET PO SCH (21:23)
[2017-02-09] MEDS: ZOLPIDEM TARTRATE 5 MG TABLET PO SCH (21:23)
[2017-02-09] MEDS: SEROQUEL 200 MG PO SCH (21:27)
[2017-02-10] MEDS: OXYCODONE HCL SR 40 MG TABLET PO SCH ×3 (01:27→17:54)
[2017-02-10] MEDS: OXYCODONE-ACETAMINOPHEN 5-325 MG TABLET PO PRN ×3 (05:12→17:55)
[2017-02-10] MEDS: OXYCODONE HCL IR 5 MG TABLET PO PRN ×3 (05:13→17:56)
[2017-02-10 06:33] LABS: ABSOLUTE EOSINOPHILS # (AUTO) 0.4 10^3/uL (0.0-0.6); ABSOLUTE LYMPHOCYTES (AUTO) 1.9 10^3/uL (0.5-4.7); ABSOLUTE MONOCYTES (AUTO) 0.6 10^3/uL (0.1-1.4); ABSOLUTE NEUT (AUTO) 5.3 10^3/uL (1.7-8.2); BASOPHILS % (AUTO) 0.5 % (0-2); EOSINOPHILS % (AUTO) 5.2 % (0-6); HEMATOCRIT 28.5 % (36.0-47.0); HEMOGLOBIN 9.7 g/dL (12.0-15.5); HGB HCT DIFFERENCE 0.6; MEAN CORPUSCULAR HEMOGLOBIN 31.9 pg (27.0-33.4); MEAN CORPUSCULAR HGB CONC 34.1 g/dL (32.0-36.0); MEAN CORPUSCULAR VOLUME 94 fl (80-97); MONOCYTES % (AUTO) 6.7 % (3-13); RED BLOOD COUNT 3.05 10^6/uL (3.72-5.28); RED CELL DISTRIBUTION WIDTH 13.4 % (11.5-14.0); SEGMENTED NEUTROPHILS % (AUTO) 64.6 % (42-78); WHITE BLOOD COUNT 8.2 10^3/uL (4.0-10.5)
[2017-02-10 06:46] LABS: ALANINE AMINOTRANSFERASE 42 U/L (9-52); ALBUMIN 2.9 g/dL (3.5-5.0); ALKALINE PHOSPHATASE 68 U/L (38-126); ANION GAP 9 (5-19); ASPARTATE AMINO TRANSFERASE 20 U/L (14-36); BILIRUBIN,DIRECT 0.3 mg/dL (0.0-0.4); BILIRUBIN,TOTAL 0.3 mg/dL (0.2-1.3); BLOOD UREA NITROGEN 7 mg/dL (7-20); CALCIUM 9.2 mg/dL (8.4-10.2); CARBON DIOXIDE 29 mmol/L (22-30); CHLORIDE 108 mmol/L (98-107); CREATININE RESULT 0.67 mg/dL (0.52-1.25); GLUCOSE 73 mg/dL (75-110); POTASSIUM 4.1 mmol/L (3.6-5.0); SODIUM 146.4 mmol/L (137-145); TOTAL PROTEIN 5.3 g/dL (6.3-8.2)
[2017-02-10] MEDS: CLONAZEPAM 1 MG TABLET PO PRN (07:11)
[2017-02-10] MEDS: IPRATROPIUM/ALBUTEROL 0.5-2.5 MG/3 ML AMPUL NEB SCH ×3 (08:13→20:04)
[2017-02-10] MEDS ORDERED: TOBRAMYCIN SULFATE INJ 80 MG/2 ML VIAL NEB SCH (10:45)
--- NOTE | 2017-02-10 10:45 | PDOC PROGRESS REPORT ---
Subjective Progress Note for:: 02/10/17 Subjective:: Awake and alert ;overall I do not feel good and unable to delineate specific issue(s) Physical Exam Vital Signs: Temp Pulse Resp BP Pulse Ox 97.9 F 96 16 177/82 H 95 02/10/17 07:10 02/10/17 08:13 02/10/17 08:13 02/10/17 07:10 02/10/17 08:13 Intake & Output 02/09/17 02/10/17 02/11/17 06:59 06:59 06:59 Intake Total 2797 577 Output Total 600 700 Balance 2197 -123 Weight 73.9 kg 71.8 kg General appearance: PRESENT: no acute distress, cooperative, disheveled, obese, well-developed Head exam: PRESENT: atraumatic, normocephalic Eye exam: PRESENT: conjunctiva pale, EOMI Mouth exam: PRESENT: dry mucosa, neck supple, tongue midline Neck exam: ABSENT: carotid bruit, JVD, lymphadenopathy, thyromegaly Respiratory exam: PRESENT: decreased breath sounds, prolonged expiratory phas, rhonchi, symmetrical, unlabored. ABSENT: rales, retraction, stridor, tachypnea , wheezes Cardiovascular exam: PRESENT: RRR, +S1, +S2 Pulses: PRESENT: normal radial pulses GI/Abdominal exam: PRESENT: normal bowel sounds, soft. ABSENT: distended, guarding, mass, organolmegaly, rebound, tenderness Rectal exam: PRESENT: deferred Extremities exam: PRESENT: +1 edema Neurological exam: PRESENT: alert, awake Psychiatric exam: PRESENT: normal mood Skin exam: PRESENT: dry, warm Results Laboratory Results: 02/10/17 05:18 02/10/17 05:18 02/10/17 02/10/17 05:18 05:18 WBC 8.2 RBC 3.05 L Hgb 9.7 L Hct 28.5 L MCV 94 MCH 31.9 MCHC 34.1 RDW 13.4 Plt Count 288 Seg Neutrophils % 64.6 Lymphocytes % 23.0 Monocytes % 6.7 Eosinophils % 5.2 Basophils % 0.5 Absolute Neutrophils 5.3 Absolute Lymphocytes 1.9 Absolute Monocytes 0.6 Absolute Eosinophils 0.4 Absolute Basophils 0.0 Sodium 146.4 H Potassium 4.1 Chloride 108 H Carbon Dioxide 29 Anion Gap 9 BUN 7 Creatinine 0.67 Est GFR ( Amer) > 60 Est GFR (Non-Af Amer) > 60 Glucose 73 L Calcium 9.2 Total Bilirubin 0.3 AST 20 ALT 42 Alkaline Phosphatase 68 Total Protein 5.3 L Albumin 2.9 L Impressions: Chest X-Ray 02/04/17 00:00 IMPRESSION: NO ACUTE RADIOGRAPHIC FINDING IN THE CHEST. Head CT 02/04/17 00:00 IMPRESSION: No acute intracranial findings. EVIDENCE OF ACUTE STROKE: NO. Lumbar Spine CT 02/04/17 00:00 IMPRESSION: DEGENERATIVE CHANGES IN THE LUMBAR SPINE WITHOUT ACUTE FRACTURE OR DISLOCATION. Soft Tissue Neck CT 02/04/17 00:00 IMPRESSION: No acute findings. Assessment & Plan - Diagnosis (1) Chronic respiratory acidosis Is this a current diagnosis for this admission?: Yes (2) Chronic respiratory failure Qualifiers: Respiratory failure complication: hypercapnia Qualified Code(s): J96.12 - Chronic respiratory failure with hypercapnia Is this a current diagnosis for this admission?: Yes (3) Acute and chronic respiratory failure ([id number]) Qualifiers: Respiratory failure complication: hypoxia and hypercapnia Qualified Code(s) : J96.21 - Acute and chronic respiratory failure with hypoxia; J96.22 - Acute and chronic respiratory failure with hypercapnia; J96.22 - Acute and chronic respiratory failure with hypercapnia; J96.22 - Acute and chronic respiratory failure with hypercapnia Is this a current diagnosis for this admission?: Yes Plan: Gram-negative rods in sputum will initiate tobramycin nebulized (4) Anemia Qualifiers: Anemia type: unspecified type Qualified Code(s): D64.9 - Anemia, unspecified Is this a current diagnosis for this admission?: Yes
[2017-02-10] MEDS: VALSARTAN 80 MG TABLET PO SCH (10:48)
[2017-02-10] MEDS: FAMOTIDINE 20 MG TABLET PO SCH ×2 (10:49→21:20)
[2017-02-10] MEDS: ASPIRIN 81 MG TABLET, CHEWABLE PO SCH (10:49)
[2017-02-10] MEDS: IRON POLYSACCHARIDES COMPLEX 150 MG CAPSULE PO SCH (10:49)
[2017-02-10] MEDS: MULTIVITAMIN TABLET PO SCH (10:49)
[2017-02-10] MEDS: BUPROPION HCL 75 MG TABLET PO SCH ×2 (10:50→21:21)
[2017-02-10] MEDS: ROFLUMILAST 500 MCG TABLET PO SCH (10:50)
[2017-02-10] MEDS: ONDANSETRON 4 MG TAB.RAPDIS PO PRN ×2 (10:51→17:55)
[2017-02-10] MEDS: BUDESONIDE/FORMOTEROL 160-4.5 MCG 60 PUFF/6 GM MDI IH SCH (10:52)
[2017-02-10] MEDS: TIOTROPIUM BROMIDE DPI 5 CAP/KIT (18 MCG/CAP) IH SCH (10:53)
[2017-02-10] MEDS: ATENOLOL 50 MG TABLET PO SCH (10:53)
[2017-02-10] MEDS ORDERED: TOBRAMYCIN SULFATE NEB 40 MG/ML 30 ML NEB ONE (12:00)
[2017-02-10] MEDS ORDERED: LEVOFLOXACIN 750 MG/D5W RTU 750 MG/150 ML RTUPB IV ONE (17:00)
--- NOTE | 2017-02-10 19:33 | PDOC PROGRESS REPORT ---
Subjective Progress Note for:: 02/10/17 Subjective:: Patient clinically continues to be poor she says she does not feel well, the sputum culture grew Pseudomonas, pansensitive to most antibiotic. CT of the chest without contrast will be ordered, IV Levaquin be ordered. She continues to require noninvasive positive pressure ventilation Physical Exam Vital Signs: Temp Pulse Resp BP Pulse Ox 98.3 F 86 20 132/47 H 98 02/10/17 15:14 02/10/17 15:14 02/10/17 15:14 02/10/17 15:14 02/10/17 16:40 Intake & Output 02/09/17 02/10/17 02/11/17 06:59 06:59 06:59 Intake Total 2797 577 650 Output Total 264 463 0497 Balance 2197 123 -450 Weight 73.9 kg 71.8 kg General appearance: PRESENT: no acute distress Eye exam: PRESENT: PERRLA Respiratory exam: PRESENT: clear to auscultation sherry Cardiovascular exam: PRESENT: +S1, +S2 GI/Abdominal exam: PRESENT: soft Neurological exam: PRESENT: alert Results Laboratory Results: 02/10/17 05:18 02/10/17 05:18 02/10/17 02/10/17 05:18 05:18 WBC 8.2 RBC 3.05 L Hgb 9.7 L Hct 28.5 L MCV 94 MCH 31.9 MCHC 34.1 RDW 13.4 Plt Count 288 Seg Neutrophils % 64.6 Lymphocytes % 23.0 Monocytes % 6.7 Eosinophils % 5.2 Basophils % 0.5 Absolute Neutrophils 5.3 Absolute Lymphocytes 1.9 Absolute Monocytes 0.6 Absolute Eosinophils 0.4 Absolute Basophils 0.0 Sodium 146.4 H Potassium 4.1 Chloride 108 H Carbon Dioxide 29 Anion Gap 9 BUN 7 Creatinine 0.67 Est GFR ( Amer) > 60 Est GFR (Non-Af Amer) > 60 Glucose 73 L Calcium 9.2 Total Bilirubin 0.3 AST 20 ALT 42 Alkaline Phosphatase 68 Total Protein 5.3 L Albumin 2.9 L 02/08/17 10:15 Sputum Gram Stain - Final 02/08/17 10:15 Sputum Sputum Culture - Final Pseudomonas Aeruginosa Normal Staci Impressions: Chest X-Ray 02/04/17 00:00 IMPRESSION: NO ACUTE RADIOGRAPHIC FINDING IN THE CHEST. Head CT 02/04/17 00:00 IMPRESSION: No acute intracranial findings. EVIDENCE OF ACUTE STROKE: NO. Lumbar Spine CT 02/04/17 00:00 IMPRESSION: DEGENERATIVE CHANGES IN THE LUMBAR SPINE WITHOUT ACUTE FRACTURE OR DISLOCATION. Soft Tissue Neck CT 02/04/17 00:00 IMPRESSION: No acute findings. Assessment & Plan - Diagnosis (1) Chronic respiratory acidosis Is this a current diagnosis for this admission?: Yes (2) Chronic respiratory failure Qualifiers: Respiratory failure complication: hypercapnia Qualified Code(s): J96.12 - Chronic respiratory failure with hypercapnia Is this a current diagnosis for this admission?: Yes (3) Generalized weakness Is this a current diagnosis for this admission?: Yes (4) Chronic obstructive pulmonary disease Qualifiers: COPD type: unspecified COPD Qualified Code(s): J44.9 - Chronic obstructive pulmonary disease, unspecified Is this a current diagnosis for this admission?: Yes (5) Sputum culture positive for Pseudomonas Is this a current diagnosis for this admission?: Yes Plan: She has positive sputum culture for Pseudomonas, this could be due to colonization versus infection CT chest without contrast will be ordered but because she says she feels unwell and she looks clinically poor she will empirically be treated with IV Levaquin.
[2017-02-10] MEDS: TOBRAMYCIN SULFATE NEB 40 MG/ML 30 ML NEB SCH (20:03)
--- NOTE | 2017-02-10 21:15 | RADIOLOGY REPORT (SQ) ---
EXAM DESCRIPTION: CT CHEST WITHOUT COMPLETED DATE/TIME: 02/10/2017 9:00 pm REASON FOR STUDY: suspect pneumonia ,positive sputrum culture R53.1 WEAKNESS COMPARISON: Chest radiograph 02/04/2017 TECHNIQUE: CT scan performed of the chest without intravenous contrast. Images reviewed with lung, soft tissue and bone windows. Reconstructed coronal and sagittal MPR images reviewed. All images st ored on PACS. All CT scanners at this facility use dose modulation, iterative reconstruction, and/or weight based d osing when appropriate to reduce radiation dose to as low as reasonably achievable (ALARA). [facility]: Dose Right [facility]: CareDose [facility]: Dose Right [facility]: Teradose 4D [facility]: Smart An[employer]ado Video RADIATION DOSE: Up-to-date CT equipment and radiation dose reduction techniques were employed. CTDIv ol: 8.1 mGy. DLP: 319 mGy-cm. mGy. LIMITATIONS: No technical limitations. FINDINGS: LUNGS AND PLEURA: Pleural and parenchymal changes at the right base. Question acute or ch ronic. Free-flowing right pleural effusion. HILAR AND MEDIASTINAL STRUCTURES: Nonspecific small nodes in mediastinum. No focal masses. HEART AND VASCULAR STRUCTURES: Coronary artery calcification. UPPER ABDOMEN: No significant findings. Limited exam. THYROID AND OTHER SOFT TISSUES: No masses. No adenopathy. BONES: No significant finding. HARDWARE: None in the chest. OTHER: No other significant findings. IMPRESSION: Free-flowing right pleural effusion. Chronic changes in the right lung. Coronary artery calcification. TECHNICAL DOCUMENTATION: JOB ID: [id number] Quality ID # [id number]: Final reports with documentation of one or more dose reduction techniques (e.g., Au tomated exposure control, adjustment of the mA and/or kV according to patient size, use of iterative reconstruction technique) 2010 [employer]- All Rights Reserved
[2017-02-10] MEDS: ZOLPIDEM TARTRATE 5 MG TABLET PO SCH (21:20)
[2017-02-10] MEDS: CLOPIDOGREL BISULFATE 75 MG TABLET PO SCH (21:21)
[2017-02-10] MEDS: SEROQUEL 200 MG PO SCH (21:21)
[2017-02-11] MEDS: OXYCODONE HCL SR 40 MG TABLET PO SCH ×3 (02:14→17:53)
[2017-02-11] MEDS: OXYCODONE-ACETAMINOPHEN 5-325 MG TABLET PO PRN ×2 (04:27→14:23)
[2017-02-11] MEDS: OXYCODONE HCL IR 5 MG TABLET PO PRN ×2 (04:27→14:22)
[2017-02-11] MEDS: IPRATROPIUM/ALBUTEROL 0.5-2.5 MG/3 ML AMPUL NEB SCH ×3 (07:48→19:45)
[2017-02-11] MEDS: TOBRAMYCIN SULFATE NEB 40 MG/ML 30 ML NEB SCH ×2 (07:48→19:45)
[2017-02-11] MEDS: FAMOTIDINE 20 MG TABLET PO SCH ×2 (09:14→21:06)
[2017-02-11] MEDS: MULTIVITAMIN TABLET PO SCH (09:14)
[2017-02-11] MEDS: IRON POLYSACCHARIDES COMPLEX 150 MG CAPSULE PO SCH (09:14)
[2017-02-11] MEDS: ASPIRIN 81 MG TABLET, CHEWABLE PO SCH (09:14)
[2017-02-11] MEDS: VALSARTAN 80 MG TABLET PO SCH (09:15)
[2017-02-11] MEDS: BUPROPION HCL 75 MG TABLET PO SCH ×2 (09:16→21:06)
[2017-02-11] MEDS: LEVOFLOXACIN 750 MG/D5W RTU 750 MG/150 ML RTUPB IV SCH (09:16)
[2017-02-11] MEDS: CLONAZEPAM 1 MG TABLET PO PRN (09:16)
[2017-02-11] MEDS: ATENOLOL 50 MG TABLET PO SCH (09:19)
[2017-02-11] MEDS: BUDESONIDE/FORMOTEROL 160-4.5 MCG 60 PUFF/6 GM MDI IH SCH (09:20)
[2017-02-11] MEDS: TIOTROPIUM BROMIDE DPI 5 CAP/KIT (18 MCG/CAP) IH SCH (09:20)
[2017-02-11] MEDS: ROFLUMILAST 500 MCG TABLET PO SCH (09:21)
--- NOTE | 2017-02-11 11:33 | PDOC PROGRESS REPORT ---
Subjective Progress Note for:: 02/11/17 Subjective:: Awake and alert How long will this take? Physical Exam Vital Signs: Temp Pulse Resp BP Pulse Ox 98.2 F 88 18 163/64 H 98 02/11/17 08:46 02/11/17 08:46 02/11/17 07:50 02/11/17 08:46 02/11/17 08:46 Intake & Output 02/10/17 02/11/17 02/12/17 06:59 06:59 06:59 Intake Total 577 665 Output Total 700 1104 Balance -123 -439 Weight 71.8 kg General appearance: PRESENT: no acute distress, cooperative, disheveled, obese, well-developed Head exam: PRESENT: atraumatic, normocephalic Eye exam: PRESENT: conjunctiva pale, EOMI Mouth exam: PRESENT: dry mucosa, neck supple, tongue midline Neck exam: ABSENT: carotid bruit, JVD, lymphadenopathy, thyromegaly Respiratory exam: PRESENT: decreased breath sounds, prolonged expiratory phas, rhonchi, symmetrical, unlabored. ABSENT: crackles, rales, retraction, stridor, tachypnea, wheezes Cardiovascular exam: PRESENT: RRR, +S1, +S2 Pulses: PRESENT: normal radial pulses GI/Abdominal exam: PRESENT: normal bowel sounds, soft. ABSENT: distended, guarding, mass, organolmegaly, rebound, tenderness Rectal exam: PRESENT: deferred Extremities exam: PRESENT: +1 edema Neurological exam: PRESENT: alert, awake Psychiatric exam: PRESENT: normal mood Skin exam: PRESENT: dry, pallor, warm Results Laboratory Results: 02/10/17 05:18 02/10/17 05:18 02/08/17 10:15 Sputum Gram Stain - Final 02/08/17 10:15 Sputum Sputum Culture - Final Pseudomonas Aeruginosa Normal Staci Impressions: Chest X-Ray 02/04/17 00:00 IMPRESSION: NO ACUTE RADIOGRAPHIC FINDING IN THE CHEST. Head CT 02/04/17 00:00 IMPRESSION: No acute intracranial findings. EVIDENCE OF ACUTE STROKE: NO. Lumbar Spine CT 02/04/17 00:00 IMPRESSION: DEGENERATIVE CHANGES IN THE LUMBAR SPINE WITHOUT ACUTE FRACTURE OR DISLOCATION. Soft Tissue Neck CT 02/04/17 00:00 IMPRESSION: No acute findings. Chest CT 02/10/17 00:00 IMPRESSION: Free-flowing right pleural effusion. Chronic changes in the right lung. Coronary artery calcification. Assessment & Plan - Diagnosis (1) Chronic respiratory acidosis Is this a current diagnosis for this admission?: Yes (2) Chronic respiratory failure Qualifiers: Respiratory failure complication: hypercapnia Qualified Code(s): J96.12 - Chronic respiratory failure with hypercapnia Is this a current diagnosis for this admission?: Yes (3) Acute and chronic respiratory failure ([id number]) Qualifiers: Respiratory failure complication: hypoxia and hypercapnia Qualified Code(s) : J96.21 - Acute and chronic respiratory failure with hypoxia; J96.22 - Acute and chronic respiratory failure with hypercapnia; J96.22 - Acute and chronic respiratory failure with hypercapnia; J96.22 - Acute and chronic respiratory failure with hypercapnia Is this a current diagnosis for this admission?: Yes (4) Anemia Qualifiers: Anemia type: unspecified type Qualified Code(s): D64.9 - Anemia, unspecified Is this a current diagnosis for this admission?: Yes
[2017-02-11 13:12] LABS: ARTERIAL BLOOD BASE EXCESS 6.5 mmol/L
[2017-02-11 15:31] LABS: ANION GAP 9 (5-19); BLOOD UREA NITROGEN 6 mg/dL (7-20); CALCIUM 9.4 mg/dL (8.4-10.2); CARBON DIOXIDE 33 mmol/L (22-30); CHLORIDE 104 mmol/L (98-107); CREATININE RESULT 0.83 mg/dL (0.52-1.25); GLUCOSE 96 mg/dL (75-110); MAGNESIUM 1.5 mg/dL (1.6-2.3); POTASSIUM 4.2 mmol/L (3.6-5.0); SODIUM 145.5 mmol/L (137-145)
--- NOTE | 2017-02-11 21:03 | PDOC PROGRESS REPORT ---
Subjective Progress Note for:: 02/11/17 Subjective:: Patient was seen by the bedside she still does not feel well, she had a CT chest yesterday that showed pleural effusion. The blood gas showed slight improvement in the pH due to reduction in PCO2. She was seen by pulmonary earlier today Physical Exam Vital Signs: Temp Pulse Resp BP Pulse Ox 98.3 F 80 16 150/61 H 98 02/11/17 17:17 02/11/17 20:13 02/11/17 19:45 02/11/17 17:17 02/11/17 19:45 Intake & Output 02/10/17 02/11/17 02/12/17 06:59 06:59 06:59 Intake Total 577 665 612 Output Total 700 1104 Balance -123 -439 612 Weight 71.8 kg 71.8 kg General appearance: PRESENT: no acute distress Eye exam: PRESENT: PERRLA Respiratory exam: PRESENT: clear to auscultation sherry Cardiovascular exam: PRESENT: +S1, +S2 GI/Abdominal exam: PRESENT: soft Neurological exam: PRESENT: alert, CN II-XII grossly intact Results Laboratory Results: 02/10/17 05:18 02/11/17 02:52 02/11/17 02/11/17 02:52 13:00 Carbonic Acid 1.72 H HCO3/H2CO3 Ratio 19:1 ABG pH 7.38 ABG pCO2 57.1 H ABG pO2 95.3 ABG HCO3 32.9 H ABG O2 Saturation 97.0 ABG Base Excess 6.5 FiO2 2.5L Sodium 145.5 H Potassium 4.2 Chloride 104 Carbon Dioxide 33 H Anion Gap 9 BUN 6 L Creatinine 0.83 Est GFR ( Amer) > 60 Est GFR (Non-Af Amer) > 60 Glucose 96 Calcium 9.4 Magnesium 1.5 L Impressions: Chest X-Ray 02/04/17 00:00 IMPRESSION: NO ACUTE RADIOGRAPHIC FINDING IN THE CHEST. Head CT 02/04/17 00:00 IMPRESSION: No acute intracranial findings. EVIDENCE OF ACUTE STROKE: NO. Lumbar Spine CT 02/04/17 00:00 IMPRESSION: DEGENERATIVE CHANGES IN THE LUMBAR SPINE WITHOUT ACUTE FRACTURE OR DISLOCATION. Soft Tissue Neck CT 02/04/17 00:00 IMPRESSION: No acute findings. Chest CT 02/10/17 00:00 IMPRESSION: Free-flowing right pleural effusion. Chronic changes in the right lung. Coronary artery calcification. Assessment & Plan - Diagnosis (1) Chronic respiratory acidosis Is this a current diagnosis for this admission?: Yes (2) Chronic respiratory failure Qualifiers: Respiratory failure complication: hypercapnia Qualified Code(s): J96.12 - Chronic respiratory failure with hypercapnia Is this a current diagnosis for this admission?: Yes (3) Generalized weakness Is this a current diagnosis for this admission?: Yes (4) Chronic obstructive pulmonary disease Qualifiers: COPD type: unspecified COPD Qualified Code(s): J44.9 - Chronic obstructive pulmonary disease, unspecified Is this a current diagnosis for this admission?: Yes (5) Sputum culture positive for Pseudomonas Is this a current diagnosis for this admission?: Yes (6) Pleural effusion Is this a current diagnosis for this admission?: Yes (7) Pseudomonal pneumonia Qualifiers: Laterality: unspecified laterality Lung location: unspecified part of lung Qualified Code(s): J15.1 - Pneumonia due to Pseudomonas Is this a current diagnosis for this admission?: Yes Plan: Continue IV antibiotic
[2017-02-11] MEDS: SEROQUEL 200 MG PO SCH (21:06)
[2017-02-11] MEDS: CLOPIDOGREL BISULFATE 75 MG TABLET PO SCH (21:06)
[2017-02-11] MEDS: ZOLPIDEM TARTRATE 5 MG TABLET PO SCH (21:06)
[2017-02-12] MEDS: OXYCODONE HCL SR 40 MG TABLET PO SCH ×3 (01:17→18:16)
[2017-02-12] MEDS: CLONAZEPAM 1 MG TABLET PO PRN ×3 (04:49→21:04)
[2017-02-12] MEDS: IPRATROPIUM/ALBUTEROL 0.5-2.5 MG/3 ML AMPUL NEB SCH ×3 (07:42→19:50)
[2017-02-12] MEDS: TOBRAMYCIN SULFATE NEB 40 MG/ML 30 ML NEB SCH ×2 (07:42→19:50)
[2017-02-12] MEDS: OXYCODONE HCL IR 5 MG TABLET PO PRN ×2 (08:17→14:58)
[2017-02-12] MEDS: OXYCODONE-ACETAMINOPHEN 5-325 MG TABLET PO PRN ×2 (08:17→14:59)
[2017-02-12] MEDS: BUPROPION HCL 75 MG TABLET PO SCH ×2 (10:11→21:04)
[2017-02-12] MEDS: IRON POLYSACCHARIDES COMPLEX 150 MG CAPSULE PO SCH (10:11)
[2017-02-12] MEDS: FAMOTIDINE 20 MG TABLET PO SCH ×2 (10:11→21:04)
[2017-02-12] MEDS: ASPIRIN 81 MG TABLET, CHEWABLE PO SCH (10:11)
[2017-02-12] MEDS: LEVOFLOXACIN 750 MG/D5W RTU 750 MG/150 ML RTUPB IV SCH (10:11)
[2017-02-12] MEDS: BUDESONIDE/FORMOTEROL 160-4.5 MCG 60 PUFF/6 GM MDI IH SCH (10:12)
[2017-02-12] MEDS: TIOTROPIUM BROMIDE DPI 5 CAP/KIT (18 MCG/CAP) IH SCH (10:12)
[2017-02-12] MEDS: ATENOLOL 50 MG TABLET PO SCH (10:12)
[2017-02-12] MEDS: MULTIVITAMIN TABLET PO SCH (10:13)
[2017-02-12] MEDS: VALSARTAN 80 MG TABLET PO SCH (10:13)
[2017-02-12] MEDS: ROFLUMILAST 500 MCG TABLET PO SCH (10:14)
--- NOTE | 2017-02-12 11:24 | PDOC PROGRESS REPORT ---
Subjective Progress Note for:: 02/12/17 Subjective:: Awake and alert Physical Exam Vital Signs: Temp Pulse Resp BP Pulse Ox 98.3 F 85 18 174/56 H 99 02/12/17 07:31 02/12/17 07:43 02/12/17 07:43 02/12/17 07:31 02/12/17 07:43 Intake & Output 02/11/17 02/12/17 02/13/17 06:59 06:59 06:59 Intake Total 665 1014 Output Total 1104 1 Balance -439 1013 Weight 71.8 kg General appearance: PRESENT: no acute distress, cooperative, disheveled, obese, well-developed Head exam: PRESENT: atraumatic, normocephalic Eye exam: PRESENT: conjunctiva pale, EOMI Mouth exam: PRESENT: dry mucosa, neck supple, tongue midline Teeth exam: PRESENT: poor dentation Neck exam: ABSENT: carotid bruit, JVD, lymphadenopathy, thyromegaly Respiratory exam: PRESENT: decreased breath sounds, prolonged expiratory phas, rhonchi, symmetrical, unlabored, wheezes. ABSENT: crackles, rales, retraction, stridor, tachypnea Cardiovascular exam: PRESENT: RRR, +S1, +S2 Pulses: PRESENT: normal radial pulses GI/Abdominal exam: PRESENT: normal bowel sounds, soft. ABSENT: distended, guarding, mass, organolmegaly, rebound, tenderness Rectal exam: PRESENT: deferred Extremities exam: PRESENT: +1 edema Neurological exam: PRESENT: alert, awake Skin exam: PRESENT: dry, pallor, warm Results Laboratory Results: 02/10/17 05:18 02/11/17 02:52 02/11/17 02/11/17 02:52 13:00 Carbonic Acid 1.72 H HCO3/H2CO3 Ratio 19:1 ABG pH 7.38 ABG pCO2 57.1 H ABG pO2 95.3 ABG HCO3 32.9 H ABG O2 Saturation 97.0 ABG Base Excess 6.5 FiO2 2.5L Sodium 145.5 H Potassium 4.2 Chloride 104 Carbon Dioxide 33 H Anion Gap 9 BUN 6 L Creatinine 0.83 Est GFR ( Amer) > 60 Est GFR (Non-Af Amer) > 60 Glucose 96 Calcium 9.4 Magnesium 1.5 L Impressions: Chest X-Ray 02/04/17 00:00 IMPRESSION: NO ACUTE RADIOGRAPHIC FINDING IN THE CHEST. Head CT 02/04/17 00:00 IMPRESSION: No acute intracranial findings. EVIDENCE OF ACUTE STROKE: NO. Lumbar Spine CT 02/04/17 00:00 IMPRESSION: DEGENERATIVE CHANGES IN THE LUMBAR SPINE WITHOUT ACUTE FRACTURE OR DISLOCATION. Soft Tissue Neck CT 02/04/17 00:00 IMPRESSION: No acute findings. Chest CT 02/10/17 00:00 IMPRESSION: Free-flowing right pleural effusion. Chronic changes in the right lung. Coronary artery calcification. Assessment & Plan - Diagnosis (1) Chronic respiratory acidosis Is this a current diagnosis for this admission?: Yes (2) Chronic respiratory failure Qualifiers: Respiratory failure complication: hypercapnia Qualified Code(s): J96.12 - Chronic respiratory failure with hypercapnia Is this a current diagnosis for this admission?: Yes (3) Acute and chronic respiratory failure ([id number]) Qualifiers: Respiratory failure complication: hypoxia and hypercapnia Qualified Code(s) : J96.21 - Acute and chronic respiratory failure with hypoxia; J96.22 - Acute and chronic respiratory failure with hypercapnia; J96.22 - Acute and chronic respiratory failure with hypercapnia; J96.22 - Acute and chronic respiratory failure with hypercapnia Is this a current diagnosis for this admission?: Yes (4) Anemia Qualifiers: Anemia type: unspecified type Qualified Code(s): D64.9 - Anemia, unspecified Is this a current diagnosis for this admission?: Yes
--- NOTE | 2017-02-12 17:44 | PDOC PROGRESS REPORT ---
Subjective Progress Note for:: 02/12/17 Subjective:: She was seen by the bedside I advised patient to stay for a few more days for IV antibiotic because she has Pseudomonas pneumonia after which she be discharged to senior care for rehabilitation. She is very deconditioned she still looks acutely ill very frail. Physical Exam Vital Signs: Temp Pulse Resp BP Pulse Ox 97.7 F 77 20 176/72 H 98 02/12/17 10:54 02/12/17 14:00 02/12/17 13:41 02/12/17 10:54 02/12/17 13:41 Intake & Output 02/11/17 02/12/17 02/13/17 06:59 06:59 06:59 Intake Total 665 1014 153 Output Total 1104 1 Balance -439 1013 153 Weight 71.8 kg General appearance: PRESENT: mild distress Eye exam: PRESENT: conjunctiva pink, EOMI, PERRLA Ear exam: PRESENT: normal external ear exam Mouth exam: PRESENT: moist, tongue midline Neck exam: PRESENT: full ROM Respiratory exam: PRESENT: clear to auscultation sherry Cardiovascular exam: PRESENT: RRR, +S1, +S2 GI/Abdominal exam: PRESENT: normal bowel sounds, soft Rectal exam: PRESENT: deferred Neurological exam: PRESENT: alert, awake, oriented to person, oriented to place , oriented to time, oriented to situation, CN II-XII grossly intact Psychiatric exam: PRESENT: appropriate affect, normal mood Skin exam: PRESENT: dry, intact, warm Results Laboratory Results: 02/10/17 05:18 02/11/17 02:52 Impressions: Chest X-Ray 02/04/17 00:00 IMPRESSION: NO ACUTE RADIOGRAPHIC FINDING IN THE CHEST. Head CT 02/04/17 00:00 IMPRESSION: No acute intracranial findings. EVIDENCE OF ACUTE STROKE: NO. Lumbar Spine CT 02/04/17 00:00 IMPRESSION: DEGENERATIVE CHANGES IN THE LUMBAR SPINE WITHOUT ACUTE FRACTURE OR DISLOCATION. Soft Tissue Neck CT 02/04/17 00:00 IMPRESSION: No acute findings. Chest CT 02/10/17 00:00 IMPRESSION: Free-flowing right pleural effusion. Chronic changes in the right lung. Coronary artery calcification. Assessment & Plan - Diagnosis (1) Chronic respiratory acidosis Is this a current diagnosis for this admission?: Yes (2) Chronic respiratory failure Qualifiers: Respiratory failure complication: hypercapnia Qualified Code(s): J96.12 - Chronic respiratory failure with hypercapnia Is this a current diagnosis for this admission?: Yes (3) Generalized weakness Is this a current diagnosis for this admission?: Yes (4) Chronic obstructive pulmonary disease Qualifiers: COPD type: unspecified COPD Qualified Code(s): J44.9 - Chronic obstructive pulmonary disease, unspecified Is this a current diagnosis for this admission?: Yes (5) Sputum culture positive for Pseudomonas Is this a current diagnosis for this admission?: Yes (6) Pleural effusion Is this a current diagnosis for this admission?: Yes (7) Pseudomonal pneumonia Qualifiers: Laterality: unspecified laterality Lung location: unspecified part of lung Qualified Code(s): J15.1 - Pneumonia due to Pseudomonas Is this a current diagnosis for this admission?: Yes Plan: She will continue IV antibiotic, other treatment
[2017-02-12] MEDS: ZOLPIDEM TARTRATE 5 MG TABLET PO SCH (21:04)
[2017-02-12] MEDS: CLOPIDOGREL BISULFATE 75 MG TABLET PO SCH (21:04)
[2017-02-12] MEDS: SEROQUEL 200 MG PO SCH (21:05)
[2017-02-13] MEDS: OXYCODONE HCL SR 40 MG TABLET PO SCH ×3 (01:41→18:46)
[2017-02-13] MEDS: IPRATROPIUM/ALBUTEROL 0.5-2.5 MG/3 ML AMPUL NEB SCH ×3 (08:04→20:26)
[2017-02-13] MEDS: TOBRAMYCIN SULFATE NEB 40 MG/ML 30 ML NEB SCH ×2 (08:04→20:27)
[2017-02-13] MEDS: VALSARTAN 80 MG TABLET PO SCH (09:43)
[2017-02-13] MEDS: ROFLUMILAST 500 MCG TABLET PO SCH (09:43)
[2017-02-13] MEDS: MULTIVITAMIN TABLET PO SCH (09:44)
[2017-02-13] MEDS: IRON POLYSACCHARIDES COMPLEX 150 MG CAPSULE PO SCH (09:44)
[2017-02-13] MEDS: FAMOTIDINE 20 MG TABLET PO SCH ×2 (09:44→21:21)
[2017-02-13] MEDS: ASPIRIN 81 MG TABLET, CHEWABLE PO SCH (09:44)
[2017-02-13] MEDS: BUPROPION HCL 75 MG TABLET PO SCH ×2 (09:44→21:21)
[2017-02-13] MEDS: ATENOLOL 50 MG TABLET PO SCH (09:44)
[2017-02-13] MEDS: TIOTROPIUM BROMIDE DPI 5 CAP/KIT (18 MCG/CAP) IH SCH (09:45)
[2017-02-13] MEDS: LEVOFLOXACIN 750 MG/D5W RTU 750 MG/150 ML RTUPB IV SCH (09:45)
[2017-02-13] MEDS: BUDESONIDE/FORMOTEROL 160-4.5 MCG 60 PUFF/6 GM MDI IH SCH (09:45)
[2017-02-13] MEDS ORDERED: MAGNESIUM SULFATE/D5W 1 GM/100 ML RTUPB IV SCH (10:00)
[2017-02-13] MEDS: CLONAZEPAM 1 MG TABLET PO PRN (10:27)
--- NOTE | 2017-02-13 11:07 | PDOC PROGRESS REPORT ---
Subjective Progress Note for:: 02/13/17 Subjective:: Awake and alert,Pale weak Physical Exam Vital Signs: Temp Pulse Resp BP Pulse Ox 98.2 F 88 30 H 170/69 H 99 02/13/17 07:58 02/13/17 07:58 02/13/17 07:58 02/13/17 07:58 02/13/17 07:58 Intake & Output 02/12/17 02/13/17 02/14/17 06:59 06:59 06:59 Intake Total 1014 1520 Output Total 1 3050 Balance 1013 -1530 Weight 71.8 kg 71.6 kg General appearance: PRESENT: no acute distress, cooperative, disheveled, obese, well-developed Head exam: PRESENT: atraumatic, normocephalic Eye exam: PRESENT: conjunctiva pale, EOMI Mouth exam: PRESENT: dry mucosa, neck supple, tongue midline Neck exam: ABSENT: carotid bruit, JVD, lymphadenopathy, thyromegaly Respiratory exam: PRESENT: decreased breath sounds - Extremely decreased, prolonged expiratory phas, symmetrical, unlabored. ABSENT: accessory muscle use , chest wall tenderness, crackles, rales, retraction, rhonchi, stridor, tachypnea, wheezes Cardiovascular exam: PRESENT: irregular rhythm Pulses: PRESENT: normal radial pulses GI/Abdominal exam: PRESENT: normal bowel sounds, soft. ABSENT: distended, guarding, mass, organolmegaly, rebound, tenderness Rectal exam: PRESENT: deferred Extremities exam: PRESENT: +1 edema Neurological exam: PRESENT: alert, awake Skin exam: PRESENT: dry, pallor Results Laboratory Results: 02/10/17 05:18 02/11/17 02:52 Impressions: Chest X-Ray 02/04/17 00:00 IMPRESSION: NO ACUTE RADIOGRAPHIC FINDING IN THE CHEST. Head CT 02/04/17 00:00 IMPRESSION: No acute intracranial findings. EVIDENCE OF ACUTE STROKE: NO. Lumbar Spine CT 02/04/17 00:00 IMPRESSION: DEGENERATIVE CHANGES IN THE LUMBAR SPINE WITHOUT ACUTE FRACTURE OR DISLOCATION. Soft Tissue Neck CT 02/04/17 00:00 IMPRESSION: No acute findings. Chest CT 02/10/17 00:00 IMPRESSION: Free-flowing right pleural effusion. Chronic changes in the right lung. Coronary artery calcification. Assessment & Plan - Diagnosis (1) Chronic respiratory acidosis Is this a current diagnosis for this admission?: Yes (2) Chronic respiratory failure Qualifiers: Respiratory failure complication: hypercapnia Qualified Code(s): J96.12 - Chronic respiratory failure with hypercapnia Is this a current diagnosis for this admission?: Yes (3) Acute and chronic respiratory failure ([id number]) Qualifiers: Respiratory failure complication: hypoxia and hypercapnia Qualified Code(s) : J96.21 - Acute and chronic respiratory failure with hypoxia; J96.22 - Acute and chronic respiratory failure with hypercapnia; J96.22 - Acute and chronic respiratory failure with hypercapnia; J96.22 - Acute and chronic respiratory failure with hypercapnia Is this a current diagnosis for this admission?: Yes (4) Anemia Qualifiers: Anemia type: unspecified type Qualified Code(s): D64.9 - Anemia, unspecified Is this a current diagnosis for this admission?: Yes
[2017-02-13] MEDS ORDERED: MAGNESIUM SULFATE/D5W 1 GM/100 ML RTUPB IV ONE (14:00)
--- NOTE | 2017-02-13 20:58 | PDOC PROGRESS REPORT ---
Subjective Progress Note for:: 02/13/17 Subjective:: Patient was seen by the bedside she is improving slowly on present regimen Physical Exam Vital Signs: Temp Pulse Resp BP Pulse Ox 98.3 F 83 20 147/51 H 98 02/13/17 20:21 02/13/17 20:23 02/13/17 20:21 02/13/17 20:21 02/13/17 20:21 Intake & Output 02/12/17 02/13/17 02/14/17 06:59 06:59 06:59 Intake Total 1014 1520 1042 Output Total 1 3050 1800 Balance 1013 -1530 -758 Weight 71.8 kg 71.6 kg General appearance: PRESENT: no acute distress Eye exam: PRESENT: PERRLA Respiratory exam: PRESENT: clear to auscultation sherry Cardiovascular exam: PRESENT: +S1, +S2 GI/Abdominal exam: PRESENT: soft Neurological exam: PRESENT: alert Results Laboratory Results: 02/10/17 05:18 02/11/17 02:52 Impressions: Chest X-Ray 02/04/17 00:00 IMPRESSION: NO ACUTE RADIOGRAPHIC FINDING IN THE CHEST. Head CT 02/04/17 00:00 IMPRESSION: No acute intracranial findings. EVIDENCE OF ACUTE STROKE: NO. Lumbar Spine CT 02/04/17 00:00 IMPRESSION: DEGENERATIVE CHANGES IN THE LUMBAR SPINE WITHOUT ACUTE FRACTURE OR DISLOCATION. Soft Tissue Neck CT 02/04/17 00:00 IMPRESSION: No acute findings. Chest CT 02/10/17 00:00 IMPRESSION: Free-flowing right pleural effusion. Chronic changes in the right lung. Coronary artery calcification. Assessment & Plan - Diagnosis (1) Chronic respiratory acidosis Is this a current diagnosis for this admission?: Yes (2) Chronic respiratory failure Qualifiers: Respiratory failure complication: hypercapnia Qualified Code(s): J96.12 - Chronic respiratory failure with hypercapnia Is this a current diagnosis for this admission?: Yes (3) Generalized weakness Is this a current diagnosis for this admission?: Yes (4) Chronic obstructive pulmonary disease Qualifiers: COPD type: unspecified COPD Qualified Code(s): J44.9 - Chronic obstructive pulmonary disease, unspecified Is this a current diagnosis for this admission?: Yes (5) Sputum culture positive for Pseudomonas Is this a current diagnosis for this admission?: Yes (6) Pleural effusion Is this a current diagnosis for this admission?: Yes (7) Pseudomonal pneumonia Qualifiers: Laterality: unspecified laterality Lung location: unspecified part of lung Qualified Code(s): J15.1 - Pneumonia due to Pseudomonas Is this a current diagnosis for this admission?: Yes
[2017-02-13] MEDS: ZOLPIDEM TARTRATE 5 MG TABLET PO SCH (21:21)
[2017-02-13] MEDS: CLOPIDOGREL BISULFATE 75 MG TABLET PO SCH (21:21)
[2017-02-13] MEDS: SEROQUEL 200 MG PO SCH (21:21)
[2017-02-14] MEDS: OXYCODONE HCL SR 40 MG TABLET PO SCH ×3 (01:14→17:54)
[2017-02-14] MEDS: OXYCODONE-ACETAMINOPHEN 5-325 MG TABLET PO PRN ×2 (06:11→16:27)
[2017-02-14] MEDS: OXYCODONE HCL IR 5 MG TABLET PO PRN ×2 (06:12→16:28)
[2017-02-14 06:50] LABS: ARTERIAL BLOOD BASE EXCESS 12.4 mmol/L; ARTERIAL BLOOD O2 SATURATION 97.9 % (94-98)
[2017-02-14] MEDS: TOBRAMYCIN SULFATE NEB 40 MG/ML 30 ML NEB SCH ×2 (08:19→20:29)
[2017-02-14] MEDS: IPRATROPIUM/ALBUTEROL 0.5-2.5 MG/3 ML AMPUL NEB SCH ×3 (08:19→20:28)
[2017-02-14] MEDS: ATENOLOL 50 MG TABLET PO SCH (09:13)
[2017-02-14] MEDS: MULTIVITAMIN TABLET PO SCH (09:14)
[2017-02-14] MEDS: ROFLUMILAST 500 MCG TABLET PO SCH (09:15)
[2017-02-14] MEDS: IRON POLYSACCHARIDES COMPLEX 150 MG CAPSULE PO SCH (09:15)
[2017-02-14] MEDS: VALSARTAN 80 MG TABLET PO SCH (09:15)
[2017-02-14] MEDS: LEVOFLOXACIN 750 MG TABLET PO SCH (09:16)
[2017-02-14] MEDS: FAMOTIDINE 20 MG TABLET PO SCH ×2 (09:16→21:33)
[2017-02-14] MEDS: ASPIRIN 81 MG TABLET, CHEWABLE PO SCH (09:18)
[2017-02-14] MEDS: BUPROPION HCL 75 MG TABLET PO SCH ×2 (09:18→21:33)
[2017-02-14] MEDS: TIOTROPIUM BROMIDE DPI 5 CAP/KIT (18 MCG/CAP) IH SCH (09:20)
[2017-02-14] MEDS: BUDESONIDE/FORMOTEROL 160-4.5 MCG 60 PUFF/6 GM MDI IH SCH (09:20)
--- NOTE | 2017-02-14 11:22 | PDOC PROGRESS REPORT ---
Subjective Progress Note for:: 02/14/17 Subjective:: Pale weak,I want to go home Physical Exam Vital Signs: Temp Pulse Resp BP Pulse Ox 97.7 F 81 16 145/60 H 96 02/14/17 04:12 02/14/17 07:00 02/14/17 04:12 02/14/17 04:12 02/14/17 04:12 Intake & Output 02/13/17 02/14/17 02/15/17 06:59 06:59 06:59 Intake Total 1520 1247 Output Total 3050 2200 Balance -1530 -953 Weight 71.6 kg 69.9 kg General appearance: PRESENT: no acute distress, cooperative, disheveled, obese, well-developed Head exam: PRESENT: atraumatic, normocephalic Eye exam: PRESENT: conjunctiva pale, EOMI Mouth exam: PRESENT: dry mucosa, neck supple, tongue midline Teeth exam: PRESENT: poor dentation Neck exam: ABSENT: carotid bruit, JVD, lymphadenopathy, thyromegaly Respiratory exam: PRESENT: decreased breath sounds, prolonged expiratory phas, rhonchi, symmetrical, unlabored. ABSENT: accessory muscle use, chest wall tenderness, crackles, rales, retraction, stridor, tachypnea Cardiovascular exam: PRESENT: RRR, +S1, +S2 Pulses: PRESENT: normal radial pulses GI/Abdominal exam: PRESENT: normal bowel sounds, soft. ABSENT: distended, guarding, mass, organolmegaly, rebound, tenderness Rectal exam: PRESENT: deferred Extremities exam: PRESENT: +1 edema Neurological exam: PRESENT: awake Skin exam: PRESENT: dry, pallor Results Laboratory Results: 02/10/17 05:18 02/11/17 02:52 02/14/17 02/14/17 05:41 06:38 Carbonic Acid Cancelled 2.00 H HCO3/H2CO3 Ratio Cancelled 19:1 ABG pH Cancelled 7.39 ABG pCO2 Cancelled 66.5 H ABG pO2 Cancelled 111.0 H ABG HCO3 Cancelled 39.6 H ABG O2 Saturation Cancelled 97.9 ABG Base Excess Cancelled 12.4 FiO2 Cancelled 30% Impressions: Chest X-Ray 02/04/17 00:00 IMPRESSION: NO ACUTE RADIOGRAPHIC FINDING IN THE CHEST. Head CT 02/04/17 00:00 IMPRESSION: No acute intracranial findings. EVIDENCE OF ACUTE STROKE: NO. Lumbar Spine CT 02/04/17 00:00 IMPRESSION: DEGENERATIVE CHANGES IN THE LUMBAR SPINE WITHOUT ACUTE FRACTURE OR DISLOCATION. Soft Tissue Neck CT 02/04/17 00:00 IMPRESSION: No acute findings. Chest CT 02/10/17 00:00 IMPRESSION: Free-flowing right pleural effusion. Chronic changes in the right lung. Coronary artery calcification. Assessment & Plan - Diagnosis (1) Chronic respiratory acidosis Is this a current diagnosis for this admission?: Yes Plan: At or near her baseline;Partially compensated (2) Chronic respiratory failure Qualifiers: Respiratory failure complication: hypercapnia Qualified Code(s): J96.12 - Chronic respiratory failure with hypercapnia Is this a current diagnosis for this admission?: Yes Plan: Continue using trilogy (3) Acute and chronic respiratory failure ([id number]) Qualifiers: Respiratory failure complication: hypoxia and hypercapnia Qualified Code(s) : J96.21 - Acute and chronic respiratory failure with hypoxia; J96.22 - Acute and chronic respiratory failure with hypercapnia; J96.22 - Acute and chronic respiratory failure with hypercapnia; J96.22 - Acute and chronic respiratory failure with hypercapnia Is this a current diagnosis for this admission?: Yes Plan: Gram-negative rods in sputum will initiate tobramycin nebulized (4) Anemia Qualifiers: Anemia type: unspecified type Qualified Code(s): D64.9 - Anemia, unspecified Is this a current diagnosis for this admission?: Yes
[2017-02-14] MEDS: CLONAZEPAM 1 MG TABLET PO PRN ×2 (12:35→22:51)
[2017-02-14] MEDS: SEROQUEL 200 MG PO SCH (21:32)
[2017-02-14] MEDS: ZOLPIDEM TARTRATE 5 MG TABLET PO SCH (21:33)
[2017-02-14] MEDS: CLOPIDOGREL BISULFATE 75 MG TABLET PO SCH (21:33)
[2017-02-15] MEDS: OXYCODONE HCL SR 40 MG TABLET PO SCH ×3 (02:07→17:43)
[2017-02-15] MEDS: OXYCODONE-ACETAMINOPHEN 5-325 MG TABLET PO PRN ×3 (04:08→21:26)
[2017-02-15] MEDS: OXYCODONE HCL IR 5 MG TABLET PO PRN ×3 (04:08→21:27)
[2017-02-15 05:44] LABS: ANION GAP 9 (5-19); BLOOD UREA NITROGEN 7 mg/dL (7-20); CALCIUM 9.1 mg/dL (8.4-10.2); CARBON DIOXIDE 35 mmol/L (22-30); CHLORIDE 99 mmol/L (98-107); CREATININE RESULT 0.84 mg/dL (0.52-1.25); GLUCOSE 80 mg/dL (75-110); MAGNESIUM 1.8 mg/dL (1.6-2.3); POTASSIUM 3.9 mmol/L (3.6-5.0); SODIUM 143.2 mmol/L (137-145)
[2017-02-15] MEDS: IPRATROPIUM/ALBUTEROL 0.5-2.5 MG/3 ML AMPUL NEB SCH ×3 (08:31→20:57)
[2017-02-15] MEDS: TOBRAMYCIN SULFATE NEB 40 MG/ML 30 ML NEB SCH ×2 (08:31→20:57)
[2017-02-15] MEDS: ATENOLOL 50 MG TABLET PO SCH (09:33)
[2017-02-15] MEDS: FAMOTIDINE 20 MG TABLET PO SCH ×2 (09:34→21:28)
[2017-02-15] MEDS: IRON POLYSACCHARIDES COMPLEX 150 MG CAPSULE PO SCH (09:34)
[2017-02-15] MEDS: VALSARTAN 80 MG TABLET PO SCH (09:34)
[2017-02-15] MEDS: ASPIRIN 81 MG TABLET, CHEWABLE PO SCH (09:34)
[2017-02-15] MEDS: ROFLUMILAST 500 MCG TABLET PO SCH (09:34)
[2017-02-15] MEDS: BUPROPION HCL 75 MG TABLET PO SCH ×2 (09:34→21:26)
[2017-02-15] MEDS: LEVOFLOXACIN 750 MG TABLET PO SCH (09:34)
[2017-02-15] MEDS: MULTIVITAMIN TABLET PO SCH (09:34)
[2017-02-15] MEDS: BUDESONIDE/FORMOTEROL 160-4.5 MCG 60 PUFF/6 GM MDI IH SCH (09:35)
[2017-02-15 09:37] LABS: ABSOLUTE EOSINOPHILS # (AUTO) 0.5 10^3/uL (0.0-0.6); ABSOLUTE LYMPHOCYTES (AUTO) 2.1 10^3/uL (0.5-4.7); ABSOLUTE MONOCYTES (AUTO) 0.4 10^3/uL (0.1-1.4); ABSOLUTE NEUT (AUTO) 3.3 10^3/uL (1.7-8.2); BASOPHILS % (AUTO) 0.7 % (0-2); EOSINOPHILS % (AUTO) 7.5 % (0-6); HEMATOCRIT 33.1 % (36.0-47.0); HEMOGLOBIN 11.2 g/dL (12.0-15.5); HGB HCT DIFFERENCE 0.5; LYMPHOCYTES % (AUTO) 33.1 % (13-45); MEAN CORPUSCULAR HEMOGLOBIN 31.5 pg (27.0-33.4); MEAN CORPUSCULAR HGB CONC 33.9 g/dL (32.0-36.0); MEAN CORPUSCULAR VOLUME 93 fl (80-97); MONOCYTES % (AUTO) 6.6 % (3-13); RED BLOOD COUNT 3.56 10^6/uL (3.72-5.28); RED CELL DISTRIBUTION WIDTH 13.3 % (11.5-14.0); SEGMENTED NEUTROPHILS % (AUTO) 52.1 % (42-78); WHITE BLOOD COUNT 6.3 10^3/uL (4.0-10.5)
[2017-02-15] MEDS: CLONAZEPAM 1 MG TABLET PO PRN (09:37)
[2017-02-15 09:43] LABS: ANION GAP 11 (5-19); BLOOD UREA NITROGEN 7 mg/dL (7-20); CALCIUM 9.5 mg/dL (8.4-10.2); CARBON DIOXIDE 32 mmol/L (22-30); CHLORIDE 102 mmol/L (98-107); GLUCOSE 115 mg/dL (75-110); POTASSIUM 4.2 mmol/L (3.6-5.0); SODIUM 144.7 mmol/L (137-145)
--- NOTE | 2017-02-15 09:51 | PDOC PROGRESS REPORT ---
Subjective Progress Note for:: 02/14/17 Subjective:: Patient was seen by the bedside she is improving slowly on present regimen Physical Exam Vital Signs: Temp Pulse Resp BP Pulse Ox 98.6 F 78 16 151/62 H 97 02/15/17 07:01 02/15/17 08:33 02/15/17 08:33 02/15/17 07:01 02/15/17 08:33 Intake & Output 02/14/17 02/15/17 02/16/17 06:59 06:59 06:59 Intake Total 1247 1822 Output Total 2200 Balance -953 1822 Weight 69.9 kg 68.2 kg General appearance: PRESENT: no acute distress, well-developed, well-nourished Head exam: PRESENT: atraumatic, normocephalic Eye exam: PRESENT: conjunctiva pink, EOMI, PERRLA Ear exam: PRESENT: normal external ear exam Mouth exam: PRESENT: moist, tongue midline Neck exam: PRESENT: full ROM Respiratory exam: PRESENT: clear to auscultation sherry Cardiovascular exam: PRESENT: RRR, +S1, +S2 Pulses: PRESENT: normal dorsalis pedis pul, +2 pedal pulses bilateral Vascular exam: PRESENT: normal capillary refill GI/Abdominal exam: PRESENT: normal bowel sounds, soft Rectal exam: PRESENT: deferred Neurological exam: PRESENT: alert Psychiatric exam: PRESENT: appropriate affect, normal mood Skin exam: PRESENT: dry, intact, warm Results Laboratory Results: 02/15/17 09:05 02/15/17 02/15/17 04:28 09:05 WBC 6.3 RBC 3.56 L Hgb 11.2 L Hct 33.1 L MCV 93 MCH 31.5 MCHC 33.9 RDW 13.3 Plt Count 331 Seg Neutrophils % 52.1 Lymphocytes % 33.1 Monocytes % 6.6 Eosinophils % 7.5 H Basophils % 0.7 Absolute Neutrophils 3.3 Absolute Lymphocytes 2.1 Absolute Monocytes 0.4 Absolute Eosinophils 0.5 Absolute Basophils 0.0 Sodium 143.2 Potassium 3.9 Chloride 99 Carbon Dioxide 35 H Anion Gap 9 BUN 7 Creatinine 0.84 Est GFR ( Amer) > 60 Est GFR (Non-Af Amer) > 60 Glucose 80 Calcium 9.1 Magnesium 1.8 Impressions: Chest X-Ray 02/04/17 00:00 IMPRESSION: NO ACUTE RADIOGRAPHIC FINDING IN THE CHEST. Head CT 02/04/17 00:00 IMPRESSION: No acute intracranial findings. EVIDENCE OF ACUTE STROKE: NO. Lumbar Spine CT 02/04/17 00:00 IMPRESSION: DEGENERATIVE CHANGES IN THE LUMBAR SPINE WITHOUT ACUTE FRACTURE OR DISLOCATION. Soft Tissue Neck CT 02/04/17 00:00 IMPRESSION: No acute findings. Chest CT 02/10/17 00:00 IMPRESSION: Free-flowing right pleural effusion. Chronic changes in the right lung. Coronary artery calcification. Assessment & Plan - Diagnosis (1) Chronic respiratory acidosis Is this a current diagnosis for this admission?: Yes (2) Chronic respiratory failure Qualifiers: Respiratory failure complication: hypercapnia Qualified Code(s): J96.12 - Chronic respiratory failure with hypercapnia Is this a current diagnosis for this admission?: Yes (3) Generalized weakness Is this a current diagnosis for this admission?: Yes (4) Chronic obstructive pulmonary disease Qualifiers: COPD type: unspecified COPD Qualified Code(s): J44.9 - Chronic obstructive pulmonary disease, unspecified Is this a current diagnosis for this admission?: Yes (5) Sputum culture positive for Pseudomonas Is this a current diagnosis for this admission?: Yes (6) Pleural effusion Is this a current diagnosis for this admission?: Yes (7) Pseudomonal pneumonia Qualifiers: Laterality: unspecified laterality Lung location: unspecified part of lung Qualified Code(s): J15.1 - Pneumonia due to Pseudomonas Is this a current diagnosis for this admission?: Yes
[2017-02-15] MEDS: TIOTROPIUM BROMIDE DPI 5 CAP/KIT (18 MCG/CAP) IH SCH (13:22)
--- NOTE | 2017-02-15 16:39 | PDOC PROGRESS REPORT ---
Subjective Progress Note for:: 02/15/17 Subjective:: She was seen by the bedside, the plan is for to go home on Friday with home meds , physical therapy, she will continue IV antibiotic for 1 more day Physical Exam Vital Signs: Temp Pulse Resp BP Pulse Ox 97.6 F 78 20 131/55 H 100 02/15/17 15:16 02/15/17 15:16 02/15/17 15:16 02/15/17 15:16 02/15/17 15:16 Intake & Output 02/14/17 02/15/17 02/16/17 06:59 06:59 06:59 Intake Total 1247 1822 237 Output Total 2200 Balance -953 1822 237 Weight 69.9 kg 68.2 kg General appearance: PRESENT: no acute distress, well-developed, well-nourished Head exam: PRESENT: atraumatic, normocephalic Eye exam: PRESENT: conjunctiva pink, EOMI, PERRLA Ear exam: PRESENT: normal external ear exam Mouth exam: PRESENT: moist, tongue midline Neck exam: PRESENT: full ROM Respiratory exam: PRESENT: clear to auscultation sherry Cardiovascular exam: PRESENT: RRR, +S1, +S2 Pulses: PRESENT: normal dorsalis pedis pul, +2 pedal pulses bilateral Vascular exam: PRESENT: normal capillary refill GI/Abdominal exam: PRESENT: normal bowel sounds, soft. ABSENT: distended, guarding, mass, organolmegaly, rebound, tenderness Rectal exam: PRESENT: deferred Neurological exam: PRESENT: alert, awake, oriented to person, oriented to place , oriented to time, oriented to situation, CN II-XII grossly intact. ABSENT: motor sensory deficit Psychiatric exam: PRESENT: appropriate affect, normal mood. ABSENT: homicidal ideation, suicidal ideation Skin exam: PRESENT: dry, intact, warm Results Laboratory Results: 02/15/17 09:05 02/15/17 09:05 02/15/17 02/15/17 02/15/17 04:28 09:05 09:05 WBC 6.3 RBC 3.56 L Hgb 11.2 L Hct 33.1 L MCV 93 MCH 31.5 MCHC 33.9 RDW 13.3 Plt Count 331 Seg Neutrophils % 52.1 Lymphocytes % 33.1 Monocytes % 6.6 Eosinophils % 7.5 H Basophils % 0.7 Absolute Neutrophils 3.3 Absolute Lymphocytes 2.1 Absolute Monocytes 0.4 Absolute Eosinophils 0.5 Absolute Basophils 0.0 Sodium 143.2 144.7 Potassium 3.9 4.2 Chloride 99 102 Carbon Dioxide 35 H 32 H Anion Gap 9 11 BUN 7 7 Creatinine 0.84 0.80 Est GFR ( Amer) > 60 > 60 Est GFR (Non-Af Amer) > 60 > 60 Glucose 80 115 H Calcium 9.1 9.5 Magnesium 1.8 Impressions: Chest X-Ray 02/04/17 00:00 IMPRESSION: NO ACUTE RADIOGRAPHIC FINDING IN THE CHEST. Head CT 02/04/17 00:00 IMPRESSION: No acute intracranial findings. EVIDENCE OF ACUTE STROKE: NO. Lumbar Spine CT 02/04/17 00:00 IMPRESSION: DEGENERATIVE CHANGES IN THE LUMBAR SPINE WITHOUT ACUTE FRACTURE OR DISLOCATION. Soft Tissue Neck CT 02/04/17 00:00 IMPRESSION: No acute findings. Chest CT 02/10/17 00:00 IMPRESSION: Free-flowing right pleural effusion. Chronic changes in the right lung. Coronary artery calcification. Assessment & Plan - Diagnosis (1) Chronic respiratory acidosis Is this a current diagnosis for this admission?: Yes (2) Chronic respiratory failure Qualifiers: Respiratory failure complication: hypercapnia Qualified Code(s): J96.12 - Chronic respiratory failure with hypercapnia Is this a current diagnosis for this admission?: Yes (3) Generalized weakness Is this a current diagnosis for this admission?: Yes (4) Chronic obstructive pulmonary disease Qualifiers: COPD type: unspecified COPD Qualified Code(s): J44.9 - Chronic obstructive pulmonary disease, unspecified Is this a current diagnosis for this admission?: Yes (5) Sputum culture positive for Pseudomonas Is this a current diagnosis for this admission?: Yes (6) Pleural effusion Is this a current diagnosis for this admission?: Yes (7) Pseudomonal pneumonia Qualifiers: Laterality: unspecified laterality Lung location: unspecified part of lung Qualified Code(s): J15.1 - Pneumonia due to Pseudomonas Is this a current diagnosis for this admission?: Yes
[2017-02-15] MEDS: ONDANSETRON 4 MG TAB.RAPDIS PO PRN (17:43)
[2017-02-15] MEDS ORDERED: DOCUSATE SODIUM 100 MG CAPSULE PO ONE (19:00)
[2017-02-15] MEDS: ZOLPIDEM TARTRATE 5 MG TABLET PO SCH (21:26)
[2017-02-15] MEDS: CLOPIDOGREL BISULFATE 75 MG TABLET PO SCH (21:26)
[2017-02-15] MEDS: SEROQUEL 200 MG PO SCH (21:31)
[2017-02-16] MEDS: OXYCODONE HCL SR 40 MG TABLET PO SCH ×3 (04:02→18:09)
[2017-02-16] MEDS: OXYCODONE HCL IR 5 MG TABLET PO PRN ×3 (06:25→23:01)
[2017-02-16] MEDS: OXYCODONE-ACETAMINOPHEN 5-325 MG TABLET PO PRN ×3 (06:26→23:02)
[2017-02-16] MEDS: IPRATROPIUM/ALBUTEROL 0.5-2.5 MG/3 ML AMPUL NEB SCH ×3 (08:29→20:25)
[2017-02-16] MEDS: TOBRAMYCIN SULFATE NEB 40 MG/ML 30 ML NEB SCH ×2 (08:29→20:25)
[2017-02-16] MEDS: BUDESONIDE/FORMOTEROL 160-4.5 MCG 60 PUFF/6 GM MDI IH SCH (10:37)
[2017-02-16] MEDS: TIOTROPIUM BROMIDE DPI 5 CAP/KIT (18 MCG/CAP) IH SCH (10:38)
[2017-02-16] MEDS: ASPIRIN 81 MG TABLET, CHEWABLE PO SCH (10:39)
[2017-02-16] MEDS: IRON POLYSACCHARIDES COMPLEX 150 MG CAPSULE PO SCH (10:39)
[2017-02-16] MEDS: MULTIVITAMIN TABLET PO SCH (10:40)
[2017-02-16] MEDS: VALSARTAN 80 MG TABLET PO SCH (10:41)
[2017-02-16] MEDS: ROFLUMILAST 500 MCG TABLET PO SCH (10:41)
[2017-02-16] MEDS: LEVOFLOXACIN 750 MG TABLET PO SCH (10:41)
[2017-02-16] MEDS: BUPROPION HCL 75 MG TABLET PO SCH ×2 (10:42→21:59)
[2017-02-16] MEDS: DOCUSATE SODIUM 100 MG CAPSULE PO SCH ×2 (10:42→18:09)
[2017-02-16] MEDS: FAMOTIDINE 20 MG TABLET PO SCH ×2 (10:42→21:59)
[2017-02-16] MEDS: ATENOLOL 50 MG TABLET PO SCH (10:43)
--- NOTE | 2017-02-16 20:37 | PDOC DISCHARGE SUMMARY ---
General - Admit/Disc Date/PCP Admission Date/Primary Care Provider: 02/09/17 11:00 HAZEL WYLIE MD Discharge Date: 02/17/17 - Discharge Diagnosis (1) Chronic respiratory acidosis Is this a current diagnosis for this admission?: Yes (2) Chronic respiratory failure Is this a current diagnosis for this admission?: Yes (3) Generalized weakness Is this a current diagnosis for this admission?: Yes (4) Chronic obstructive pulmonary disease Is this a current diagnosis for this admission?: Yes (5) Sputum culture positive for Pseudomonas Is this a current diagnosis for this admission?: Yes (6) Pleural effusion Is this a current diagnosis for this admission?: Yes (7) Pseudomonal pneumonia Is this a current diagnosis for this admission?: Yes - Additional Information Discharge Diet: As Tolerated Discharge Activity: Activity As Tolerated Home Medications: Alendronate Sodium [Fosamax 70 mg Tablet] 70 mg PO CASTAÑEDA@1000 02/04/17 Aspirin [Aspirin 81 mg Chewable Tablet] 81 mg PO DAILY 02/04/17 Atenolol [Tenormin] 25 mg PO DAILY 02/04/17 Budesonide/Formoterol Fumarate [Symbicort HFA 160-4.5 mcg Inhaler 6 gm] 1 puff IH DAILY 02/04/17 Bupropion HCl [Bupropion Xl] 150 mg PO QHS 02/04/17 Clonazepam [Klonopin 1 mg Tablet] 1 mg PO BIDP PRN 02/04/17 Clopidogrel Bisulfate [Plavix 75 mg Tablet] 75 mg PO QHS 02/04/17 Doxepin HCl [Silenor] 6 mg PO QHS 02/04/17 Iron Ps Complex/B12/Folic Acid [Ferrex 150 Forte Capsule] 1 each PO DAILY Melatonin 30 mg PO QHS 02/04/17 Multivit-Min/Iron/Folic/Lutein [Centrum Silver Women Tablet] 1 tab PO DAILY 07/19 Oxycodone HCl [Oxycodone HCl ER] 40 mg PO Q8A 02/04/17 Oxycodone HCl/Acetaminophen [Percocet 10-325 mg Tablet] 1 tab PO Q6HP PRN Quetiapine Fumarate [Seroquel Xr] 200 mg PO QHS 02/04/17 Roflumilast [Daliresp 500 mcg Tablet] 500 mcg PO DAILY 02/04/17 Tiotropium [place] [Spiriva Handihaler 5 Cap/Kit (18 Mcg/Cap)] 1 cap IH DAILY Ubidecarenone [Co Q-10] 200 mg PO DAILY 02/04/17 Valsartan [Diovan 80 mg Tablet] 80 mg PO DAILY 02/04/17 Zolpidem Tartrate [Edluar SL 10 mg Tablet] 10 mg SL QHS #30 tab.subl 02/16/17 History of Present Illness History of Present Illness: Patient was admitted initially for observation when she presented with lower extremity weakness, fatigue, generalized weakness on evaluation she was found to have chronic respiratory acidosis. She was supposed to be discharged home this morning but she felt acutely ill patient spouse does not feel comfortable enough to take her home. She was seen by pulmonary, she is presently on noninvasive positive pressure ventilation, she has not been compliant with device overTime she was encouraged by the geropsychologist to be more compliant with the device. The discharge was canceled and she is now been admitted to the hospital for further evaluation. Hospital Course Hospital Course: Patient was initially admitted for observation and she was to be discharged on 02/05/2017 then she was noticed to be acutely ill and she was transitioned to inpatient care, she has chronic respiratory failure with associated chronic respiratory acidosis she was also seen by pulmonary on this admission sputum culture grew Pseudomonas, subsequent CT chest confirmed pneumonia the organism is sensitive to Levaquin she was treated with IV Levaquin. She required noninvasive positive pressure ventilation for the most of the hospital stay. She also had bronchodilators with DuoNeb. She is much improved and she is stable for discharge Physical Exam Vital Signs: Temp Pulse Resp BP Pulse Ox 98.2 F 76 20 122/46 L 99 02/16/17 15:16 02/16/17 15:16 02/16/17 15:16 02/16/17 15:16 02/16/17 15:16 Intake & Output 02/15/17 02/16/17 02/17/17 06:59 06:59 06:59 Intake Total 2735 158 651 Balance 1829 553 653 Weight 68.2 kg 66.2 kg General appearance: PRESENT: no acute distress, well-developed, well-nourished Head exam: PRESENT: atraumatic, normocephalic Eye exam: PRESENT: conjunctiva pink, EOMI, PERRLA Ear exam: PRESENT: normal external ear exam Mouth exam: PRESENT: moist, tongue midline Neck exam: PRESENT: full ROM. ABSENT: carotid bruit, JVD, lymphadenopathy, thyromegaly Cardiovascular exam: PRESENT: RRR, +S1, +S2 Pulses: PRESENT: normal dorsalis pedis pul, +2 pedal pulses bilateral Vascular exam: PRESENT: normal capillary refill GI/Abdominal exam: PRESENT: normal bowel sounds, soft Rectal exam: PRESENT: deferred Neurological exam: PRESENT: alert, awake, oriented to person, oriented to place , oriented to time, oriented to situation, CN II-XII grossly intact Psychiatric exam: PRESENT: appropriate affect, normal mood Skin exam: PRESENT: dry, intact, warm Results Laboratory Results: 02/15/17 09:05 02/15/17 09:05 Impressions: Chest X-Ray 02/04/17 00:00 IMPRESSION: NO ACUTE RADIOGRAPHIC FINDING IN THE CHEST. Head CT 02/04/17 00:00 IMPRESSION: No acute intracranial findings. EVIDENCE OF ACUTE STROKE: NO. Lumbar Spine CT 02/04/17 00:00 IMPRESSION: DEGENERATIVE CHANGES IN THE LUMBAR SPINE WITHOUT ACUTE FRACTURE OR DISLOCATION. Soft Tissue Neck CT 02/04/17 00:00 IMPRESSION: No acute findings. Chest CT 02/10/17 00:00 IMPRESSION: Free-flowing right pleural effusion. Chronic changes in the right lung. Coronary artery calcification.
--- NOTE | 2017-02-16 20:37 | PDOC PROGRESS REPORT ---
Subjective Progress Note for:: 02/16/17 Subjective:: She was seen by the bedside, the plan is for to go home on Friday with home meds , physical therapy, she will continue IV antibiotic for 1 more day Physical Exam Vital Signs: Temp Pulse Resp BP Pulse Ox 98.2 F 76 20 122/46 L 99 02/16/17 15:16 02/16/17 15:16 02/16/17 15:16 02/16/17 15:16 02/16/17 15:16 Intake & Output 02/15/17 02/16/17 02/17/17 06:59 06:59 06:59 Intake Total 1822 710 653 Balance 1822 710 653 Weight 68.2 kg 66.2 kg General appearance: PRESENT: no acute distress, well-developed, well-nourished Head exam: PRESENT: atraumatic, normocephalic Eye exam: PRESENT: conjunctiva pink, EOMI, PERRLA. ABSENT: scleral icterus Ear exam: PRESENT: normal external ear exam Mouth exam: PRESENT: moist, tongue midline Neck exam: PRESENT: full ROM. ABSENT: carotid bruit, JVD, lymphadenopathy, thyromegaly Cardiovascular exam: PRESENT: RRR. ABSENT: diastolic murmur, rubs, systolic murmur Pulses: PRESENT: normal dorsalis pedis pul, +2 pedal pulses bilateral Vascular exam: PRESENT: normal capillary refill GI/Abdominal exam: PRESENT: normal bowel sounds, soft. ABSENT: distended, guarding, mass, organolmegaly, rebound, tenderness Rectal exam: PRESENT: deferred Neurological exam: PRESENT: alert, awake, oriented to person, oriented to place , oriented to time, oriented to situation, CN II-XII grossly intact. ABSENT: motor sensory deficit Psychiatric exam: PRESENT: appropriate affect, normal mood. ABSENT: homicidal ideation, suicidal ideation Skin exam: PRESENT: dry, intact, warm. ABSENT: cyanosis, rash Results Laboratory Results: 02/15/17 09:05 02/15/17 09:05 Impressions: Chest X-Ray 02/04/17 00:00 IMPRESSION: NO ACUTE RADIOGRAPHIC FINDING IN THE CHEST. Head CT 02/04/17 00:00 IMPRESSION: No acute intracranial findings. EVIDENCE OF ACUTE STROKE: NO. Lumbar Spine CT 02/04/17 00:00 IMPRESSION: DEGENERATIVE CHANGES IN THE LUMBAR SPINE WITHOUT ACUTE FRACTURE OR DISLOCATION. Soft Tissue Neck CT 02/04/17 00:00 IMPRESSION: No acute findings. Chest CT 02/10/17 00:00 IMPRESSION: Free-flowing right pleural effusion. Chronic changes in the right lung. Coronary artery calcification. Assessment & Plan - Diagnosis (1) Chronic respiratory acidosis Is this a current diagnosis for this admission?: Yes (2) Chronic respiratory failure Qualifiers: Respiratory failure complication: hypercapnia Qualified Code(s): J96.12 - Chronic respiratory failure with hypercapnia Is this a current diagnosis for this admission?: Yes (3) Generalized weakness Is this a current diagnosis for this admission?: Yes (4) Chronic obstructive pulmonary disease Qualifiers: COPD type: unspecified COPD Qualified Code(s): J44.9 - Chronic obstructive pulmonary disease, unspecified Is this a current diagnosis for this admission?: Yes (5) Sputum culture positive for Pseudomonas Is this a current diagnosis for this admission?: Yes (6) Pleural effusion Is this a current diagnosis for this admission?: Yes (7) Pseudomonal pneumonia Qualifiers: Laterality: unspecified laterality Lung location: unspecified part of lung Qualified Code(s): J15.1 - Pneumonia due to Pseudomonas Is this a current diagnosis for this admission?: Yes
[2017-02-16] MEDS: CLONAZEPAM 1 MG TABLET PO PRN (21:58)
[2017-02-16] MEDS: CLOPIDOGREL BISULFATE 75 MG TABLET PO SCH (21:58)
[2017-02-16] MEDS: SEROQUEL 200 MG PO SCH (21:59)
[2017-02-16] MEDS: ZOLPIDEM TARTRATE 5 MG TABLET PO SCH (21:59)
[2017-02-17] MEDS: OXYCODONE HCL SR 40 MG TABLET PO SCH ×2 (03:07→09:29)
[2017-02-17] MEDS: OXYCODONE HCL IR 5 MG TABLET PO PRN (07:42)
[2017-02-17] MEDS: OXYCODONE-ACETAMINOPHEN 5-325 MG TABLET PO PRN (07:43)
[2017-02-17] MEDS: IPRATROPIUM/ALBUTEROL 0.5-2.5 MG/3 ML AMPUL NEB SCH (08:42)
[2017-02-17] MEDS: TOBRAMYCIN SULFATE NEB 40 MG/ML 30 ML NEB SCH (08:42)
[2017-02-17] MEDS: MULTIVITAMIN TABLET PO SCH (09:29)
[2017-02-17] MEDS: ROFLUMILAST 500 MCG TABLET PO SCH (09:29)
[2017-02-17] MEDS: LEVOFLOXACIN 750 MG TABLET PO SCH (09:29)
[2017-02-17] MEDS: FAMOTIDINE 20 MG TABLET PO SCH (09:29)
[2017-02-17] MEDS: IRON POLYSACCHARIDES COMPLEX 150 MG CAPSULE PO SCH (09:29)
[2017-02-17] MEDS: DOCUSATE SODIUM 100 MG CAPSULE PO SCH (09:29)
[2017-02-17] MEDS: ASPIRIN 81 MG TABLET, CHEWABLE PO SCH (09:30)
[2017-02-17] MEDS: VALSARTAN 80 MG TABLET PO SCH (09:30)
[2017-02-17] MEDS: BUPROPION HCL 75 MG TABLET PO SCH (09:30)
[2017-02-17] MEDS: ATENOLOL 50 MG TABLET PO SCH (09:31)
[2017-02-17] MEDS: BUDESONIDE/FORMOTEROL 160-4.5 MCG 60 PUFF/6 GM MDI IH SCH (09:32)
[2017-02-17] MEDS: TIOTROPIUM BROMIDE DPI 5 CAP/KIT (18 MCG/CAP) IH SCH (09:33)
[2017-02-17] MEDS: CLONAZEPAM 1 MG TABLET PO PRN (09:39)
[2017-02-17 12:05] VITALS: BP 124/88
== END 2017-02-17 12:24 | disposition home health service (06) | DRG 189 ==
LOC: 3W 17:20 → OBSVTOIN 02-09 11:00
PROVIDERS: ADMIT Internal Medicine; ATTEND Internal Medicine
PROC: 3E0F73Z Introduction of Anti-inflammatory into Respiratory Tract, Via Natural or Artificial Opening (ICD-10-PCS; principal; 2017-02-08)
PROC: 3E0234Z Introduction of Serum, Toxoid and Vaccine into Muscle, Percutaneous Approach (ICD-10-PCS; 2017-02-17)
DX: J96.21 Acute and chronic respiratory failure with hypoxia (principal); J15.1 Pneumonia due to Pseudomonas; E87.2 Acidosis; C34.90 Malignant neoplasm of unspecified part of unspecified bronchus or lung; J44.1 Chronic obstructive pulmonary disease with (acute) exacerbation; J96.22 Acute and chronic respiratory failure with hypercapnia; E78.5 Hyperlipidemia, unspecified; I10 Essential (primary) hypertension; M19.90 Unspecified osteoarthritis, unspecified site; F32.9 Major depressive disorder, single episode, unspecified; R53.1 Weakness; G89.4 Chronic pain syndrome; D64.9 Anemia, unspecified; Z66 Do not resuscitate; Z91.19 Patient's noncompliance with other medical treatment and regimen; Z23 Encounter for immunization; Z79.82 Long term (current) use of aspirin; Z79.899 Other long term (current) drug therapy; Z90.49 Acquired absence of other specified parts of digestive tract; Z90.710 Acquired absence of both cervix and uterus; Z87.891 Personal history of nicotine dependence; Z82.49 Family history of ischemic heart disease and other diseases of the circulatory system; Z80.9 Family history of malignant neoplasm, unspecified
CPT/HCPCS: 36415; 36600; 70450; 70490; 71010; 71250; 72131; 80048; 80053; 80076; 82728; 82803; 82962; 83540; 83550; 83735; 85025; 87070; 87077; 87186; 87205; 90686; 94640; 94667; 94668; 94799; G0378; G0379; G8978-GP; G8979-GP; J1642; J1956; J3475; J3490; J7030; J7620; J7685; S0119

== ENCOUNTER 2017-04-03 09:44 | Inpatient (IN) | payer MEDICARE, OTHER ==
[2017-04-03] MEDS ORDERED: ROCURONIUM BROMIDE INJ 50 MG/5 ML VIAL IV ONE (11:38)
[2017-04-03 11:41] LABS: ABSOLUTE BASOPHILS # (AUTO) 0.1 10^3/uL (0.0-0.2); ABSOLUTE EOSINOPHILS # (AUTO) 0.2 10^3/uL (0.0-0.6); ABSOLUTE LYMPHOCYTES (AUTO) 1.7 10^3/uL (0.5-4.7); ABSOLUTE MONOCYTES (AUTO) 0.6 10^3/uL (0.1-1.4); ABSOLUTE NEUT (AUTO) 4.4 10^3/uL (1.7-8.2); BASOPHILS % (AUTO) 1.2 % (0-2); EOSINOPHILS % (AUTO) 3.3 % (0-6); HEMATOCRIT 32.9 % (36.0-47.0); HEMOGLOBIN 10.9 g/dL (12.0-15.5); HGB HCT DIFFERENCE -0.2; LYMPHOCYTES % (AUTO) 23.6 % (13-45); MEAN CORPUSCULAR HEMOGLOBIN 29.8 pg (27.0-33.4); MEAN CORPUSCULAR HGB CONC 33.2 g/dL (32.0-36.0); MEAN CORPUSCULAR VOLUME 90 fl (80-97); MONOCYTES % (AUTO) 9.1 % (3-13); RED BLOOD COUNT 3.67 10^6/uL (3.72-5.28); RED CELL DISTRIBUTION WIDTH 13.8 % (11.5-14.0); SEGMENTED NEUTROPHILS % (AUTO) 62.8 % (42-78)
[2017-04-03 12:04] LABS: ALANINE AMINOTRANSFERASE 43 U/L (9-52); ALBUMIN 3.7 g/dL (3.5-5.0); ALKALINE PHOSPHATASE 59 U/L (38-126); ANION GAP 8 (5-19); ASPARTATE AMINO TRANSFERASE 44 U/L (14-36); BILIRUBIN,DIRECT 0.3 mg/dL (0.0-0.4); BILIRUBIN,TOTAL 0.4 mg/dL (0.2-1.3); BLOOD UREA NITROGEN 8 mg/dL (7-20); CALCIUM 8.7 mg/dL (8.4-10.2); CARBON DIOXIDE 36 mmol/L (22-30); CHLORIDE 98 mmol/L (98-107); CREATININE RESULT 0.81 mg/dL (0.52-1.25); GLUCOSE 96 mg/dL (75-110); POTASSIUM 4.2 mmol/L (3.6-5.0); SODIUM 141.5 mmol/L (137-145); TOTAL PROTEIN 6.5 g/dL (6.3-8.2)
--- NOTE | 2017-04-03 12:22 | RADIOLOGY REPORT (SQ) ---
EXAM DESCRIPTION: CHEST SINGLE VIEW COMPLETED DATE/TIME: 04/03/2017 12:08 pm REASON FOR STUDY: er 14 COMPARISON: 02/04/2017 EXAM PARAMETERS: NUMBER OF VIEWS: One view. TECHNIQUE: Single frontal radiographic view of the chest acquired. RADIATION DOSE: NA LIMITATIONS: None. FINDINGS: LUNGS AND PLEURA: No opacities, masses or pneumothorax. No pleural effusion. Calcified gr anuloma is again identified in the right upper lung field. I cannot exclude a component of obstructi ve lung disease. MEDIASTINUM AND HILAR STRUCTURES: No masses. Contour normal. HEART AND VASCULAR STRUCTURES: Heart normal in size. Normal vasculature. BONES: No acute findings. HARDWARE: Port-A-Cath is unchanged in position. OTHER: No other significant finding. IMPRESSION: NO ACUTE RADIOGRAPHIC FINDING IN THE CHEST. TECHNICAL DOCUMENTATION: JOB ID: [id number] [employer]- All Rights Reserved
--- NOTE | 2017-04-03 12:38 | RADIOLOGY REPORT (SQ) ---
EXAM DESCRIPTION: CT HEAD WITHOUT COMPLETED DATE/TIME: 04/03/2017 12:19 pm REASON FOR STUDY: er 14 COMPARISON: 02/04/2017 TECHNIQUE: Axial images acquired through the brain without intravenous contrast. Images reviewed wi th bone, brain and subdural windows. Images stored on PACS. All CT scanners at this facility use dose modulation, iterative reconstruction, and/or weight based d osing when appropriate to reduce radiation dose to as low as reasonably achievable (ALARA). [facility]: Dose Right [facility]: CareDose [facility]: Dose Right [facility]: Teradose 4D [facility]: Ripple TV RADIATION DOSE: mGy. LIMITATIONS: None. FINDINGS: VENTRICLES: Normal size and contour. CEREBRUM: No masses. No hemorrhage. No midline shift. No evidence for acute infarction. Normal gra y/white matter differentiation. No areas of low density in the white matter. CEREBELLUM: No masses. No hemorrhage. No alteration of density. No evidence for acute infarction. EXTRAAXIAL SPACES: No fluid collections. No masses. ORBITS AND GLOBE: No intra- or extraconal masses. Normal contour of globe without masses. CALVARIUM: No fracture. PARANASAL SINUSES: No fluid or mucosal thickening. SOFT TISSUES: No mass or hematoma. OTHER: No other significant finding. IMPRESSION: NO ACUTE INTRACRANIAL IMAGING FINDINGS. EVIDENCE OF ACUTE STROKE: NO. COMMENT: Quality ID # [id number]: Final reports with documentation of one or more dose reduction techniques (e.g., Automated exposure control, adjustment of the mA and/or kV according to patient size, use of iterative reconstruction technique) TECHNICAL DOCUMENTATION: JOB ID: [id number] [employer]- All Rights Reserved
[2017-04-03 13:11] LABS: ARTERIAL BLOOD BASE EXCESS 5.7 mmol/L; ARTERIAL BLOOD O2 SATURATION 98.4 % (94-98)
[2017-04-03] MEDS ORDERED: PROPOFOL 100 ML IV ONE ×2 (13:30→18:04)
[2017-04-03] MEDS ORDERED: VANCOMYCIN HCL 0 MG in DEXTROSE 5%-WATER 250 ML IV NR (13:30)
[2017-04-03 14:19] LABS: APPEARANCE,URINE CLEAR; BILIRUBIN,URINE NEGATIVE (NEGATIVE); GLUCOSE, URINE NEGATIVE (NEGATIVE); KETONES,URINE NEGATIVE (NEGATIVE); LEUKOCYTE ESTERASE,URINE NEGATIVE (NEGATIVE); NITRITE,URINE NEGATIVE (NEGATIVE); PROTEIN,URINE NEGATIVE (NEGATIVE); URINE SPECIFIC GRAVITY 1.006; UROBILINOGEN,URINE NEGATIVE mg/dL (<2.0)
[2017-04-03 14:24] LABS: LIPASE 78.1 U/L (23-300); MAGNESIUM 1.9 mg/dL (1.6-2.3); PHOSPHORUS 3.8 mg/dL (2.5-4.5)
[2017-04-03 14:34] LABS: URINE BARBITURATES SCREEN NEGATIVE; URINE METHADONE SCREEN NEGATIVE; URINE PHENCYCLIDINE SCREEN NEGATIVE
[2017-04-03 14:40] LABS: URINE OPIATES LOW UNCONFIRMED POSITIVE
[2017-04-03] MEDS: IPRATROPIUM/ALBUTEROL 0.5-2.5 MG/3 ML AMPUL NEB PRN (14:40)
[2017-04-03] MEDS ORDERED: PHARMACY COMMUNICATION ORDER MC NR (14:45)
[2017-04-03 14:49] LABS: CREATINE KINASE MB 0.98 ng/mL (<4.55)
[2017-04-03] MEDS ORDERED: NOREPINEPHRINE BITARTRATE INJ/PF 4 MG/4 ML SDV IV ONE (14:51)
[2017-04-03 14:54] LABS: TROPONIN I < 0.012 ng/mL
[2017-04-03 14:55] LABS: ARTERIAL BLOOD BASE EXCESS 2.5 mmol/L; ARTERIAL BLOOD O2 SATURATION 98.7 % (94-98)
[2017-04-03] MEDS ORDERED: ENOXAPARIN SODIUM INJ 40 MG/0.4 ML DISP.SYRIN SUBCUT ONE (15:00)
[2017-04-03 15:07] LABS: THYROID STIMULATING HORMONE 1.9 uIU/mL (0.47-4.68)
[2017-04-03] MEDS: PROPOFOL 100 ML IV PRN ×3 (15:12→22:05)
[2017-04-03 16:30] LABS: ARTERIAL BLOOD BASE EXCESS 3.5 mmol/L; ARTERIAL BLOOD O2 SATURATION 99.4 % (94-98)
[2017-04-03] MEDS: LEVOFLOXACIN 750 MG/D5W RTU 750 MG/150 ML RTUPB IV SCH (16:34)
[2017-04-03] MEDS: DEXTROSE 5%-WATER 250 ML with NOREPINEPHRINE BITARTRATE 4 MG IV PRN ×2 (16:34)
[2017-04-03] MEDS: VANCOMYCIN HCL 500 MG in DEXTROSE 5%-WATER 100 ML IV SCH (16:37)
[2017-04-03] MEDS: NORMAL SALINE 1000 ML 1,000 ML IV PRN (16:38)
--- NOTE | 2017-04-03 16:44 | RADIOLOGY REPORT (SQ) ---
EXAM DESCRIPTION: CHEST SINGLE VIEW COMPLETED DATE/TIME: 04/03/2017 4:16 pm REASON FOR STUDY: intubation COMPARISON: 04/03/2017 EXAM PARAMETERS: NUMBER OF VIEWS: One view. TECHNIQUE: Single frontal radiographic view of the chest acquired. RADIATION DOSE: NA LIMITATIONS: None. FINDINGS: LUNGS AND PLEURA: No opacities, masses or pneumothorax. No pleural effusion. The previous ly described calcified granuloma are again identified. I cannot exclude a component of obstructive l pj disease. There is some focal herniation of lung along the right lateral chest wall. MEDIASTINUM AND HILAR STRUCTURES: No masses. Contour normal. HEART AND VASCULAR STRUCTURES: Heart normal in size. Normal vasculature. BONES: No acute findings. HARDWARE: Endotracheal tube is identified with its tip just above the level of the aortic arch in goo d position. Port-A-Cath is unchanged in position. OTHER: No other significant finding. IMPRESSION: Endotracheal tube in satisfactory position. No other significant interval change. Othe r findings as noted above TECHNICAL DOCUMENTATION: JOB ID: [id number] [employer]- All Rights Reserved
[2017-04-03] MEDS ORDERED: CEFEPIME HCL 1.5 GM in DEXTROSE 5%-WATER 50 ML IV SCH (18:00)
[2017-04-03] MEDS ORDERED: INFLUENZA ADLT QUAD (36MOS+) 2017-18 VAC 0.5 ML SYR IM PRN (18:09)
[2017-04-03 19:11] LABS: ARTERIAL BLOOD BASE EXCESS 3.1 mmol/L; ARTERIAL BLOOD O2 SATURATION 99.4 % (94-98)
[2017-04-03] MEDS: CEFEPIME 2 GM/D5W RTU 2 GM/50 ML RTUPB IV SCH (20:44)
[2017-04-03 20:45] LABS: ARTERIAL BLOOD BASE EXCESS 3.4 mmol/L
[2017-04-03 21:34] LABS: TROPONIN I < 0.012 ng/mL
[2017-04-04] MEDS: NORMAL SALINE 1000 ML 1,000 ML IV PRN (00:16)
[2017-04-04] MEDS: PROPOFOL 100 ML IV PRN ×6 (01:20→21:18)
[2017-04-04] MEDS: DEXTROSE 5%-WATER 250 ML with NOREPINEPHRINE BITARTRATE 4 MG IV PRN ×2 (01:20)
--- NOTE | 2017-04-04 02:53 | OPERATIVE REPORT E ---
Operative Report NAME: ROSALINDA SAGE : 1955 AGE: 62Y DATE OF SURGERY: 04/03/2017 ROOM: 606 PREOPERATIVE DIAGNOSIS: 1. HEMODYNAMICALLY UNSTABLE. 2. NEEDS AN ARTERIAL LINE. POSTOPERATIVE DIAGNOSIS: 1. HEMODYNAMICALLY UNSTABLE. 2. NEEDS AN ARTERIAL LINE. PROCEDURE: Attempted placement of arterial line via the right brachial artery. SURGEON: GAURI SMALL M.D. ANESTHESIA: Local. INDICATION: This is a 62-year-old female noted to be hypotensive and needing an arterial line. The patient had attempted A-line placement by anesthesia but was unsuccessful. DESCRIPTION OF PROCEDURE: The right brachial artery was palpable, and the radial artery, however, was barely palpable. Because of this, the right brachial artery was chosen as the site for placement of an A-line. The right brachial artery area at the antecubital site was then prepped and draped in the usual sterile fashion. Local anesthesia infiltrated on the skin over the palpable pulse. The right brachial artery was attempted to be cannulated several times, but was unsuccessful. It appears that the artery is calcified. I can feel the artery, but it is noted to be quite firm. After several attempts, at least a dozen times, the procedure was then terminated. I told the nurses if the patient really needs an A-line, I can do a small cut down, have to call me back. The patient's blood pressure remained quite stable at the completion of the procedure. DICTATING PHYSICIAN: GAURI SMALL M.D. [id number] PHY#: [id number] ID: [id number] JOB#: [id number] ACCT: [id number] cc:GAURI SMALL M.D. > MTDD
[2017-04-04 03:20] LABS: ABSOLUTE BASOPHILS # (AUTO) 0.1 10^3/uL (0.0-0.2); ABSOLUTE EOSINOPHILS # (AUTO) 0.3 10^3/uL (0.0-0.6); ABSOLUTE LYMPHOCYTES (AUTO) 2.9 10^3/uL (0.5-4.7); ABSOLUTE MONOCYTES (AUTO) 0.9 10^3/uL (0.1-1.4); ABSOLUTE NEUT (AUTO) 5.2 10^3/uL (1.7-8.2); BASOPHILS % (AUTO) 1.4 % (0-2); EOSINOPHILS % (AUTO) 2.7 % (0-6); HEMATOCRIT 30.6 % (36.0-47.0); HEMOGLOBIN 10.2 g/dL (12.0-15.5); MEAN CORPUSCULAR HEMOGLOBIN 29.7 pg (27.0-33.4); MEAN CORPUSCULAR HGB CONC 33.4 g/dL (32.0-36.0); MEAN CORPUSCULAR VOLUME 89 fl (80-97); MONOCYTES % (AUTO) 9.9 % (3-13); RED BLOOD COUNT 3.44 10^6/uL (3.72-5.28); RED CELL DISTRIBUTION WIDTH 13.7 % (11.5-14.0); WHITE BLOOD COUNT 9.5 10^3/uL (4.0-10.5)
[2017-04-04 03:21] LABS: ALANINE AMINOTRANSFERASE 45 U/L (9-52); ALKALINE PHOSPHATASE 58 U/L (38-126); ANION GAP 7 (5-19); ASPARTATE AMINO TRANSFERASE 35 U/L (14-36); BILIRUBIN,DIRECT 0.4 mg/dL (0.0-0.4); BILIRUBIN,TOTAL 0.4 mg/dL (0.2-1.3); BLOOD UREA NITROGEN 8 mg/dL (7-20); CALCIUM 8.4 mg/dL (8.4-10.2); CARBON DIOXIDE 28 mmol/L (22-30); CHLORIDE 110 mmol/L (98-107); CHOLESTEROL 140.59 mg/dL (0-200); CREATININE RESULT 0.78 mg/dL (0.52-1.25); Direct HDL 44 mg/dL (>40); GLUCOSE 73 mg/dL (75-110); MAGNESIUM 1.7 mg/dL (1.6-2.3); POTASSIUM 4.2 mmol/L (3.6-5.0); SODIUM 144.5 mmol/L (137-145); TOTAL PROTEIN 5.4 g/dL (6.3-8.2); TRIGLYCERIDES 119 mg/dL (<150)
[2017-04-04 03:31] LABS: PROTHROMBIN TIME 14.1 SEC (11.4-15.4)
[2017-04-04 03:32] LABS: DIRECT LDL 75 mg/dL (<100); PARTIAL THROMBOPLASTIN TIME 25.4 SEC (23.5-35.8)
[2017-04-04 03:39] LABS: TROPONIN I < 0.012 ng/mL
[2017-04-04] MEDS: VANCOMYCIN HCL 500 MG in DEXTROSE 5%-WATER 100 ML IV SCH ×2 (04:24→16:06)
[2017-04-04 05:27] LABS: ARTERIAL BLOOD BASE EXCESS 3.3 mmol/L
[2017-04-04] MEDS: CEFEPIME 2 GM/D5W RTU 2 GM/50 ML RTUPB IV SCH ×2 (05:35→17:45)
--- NOTE | 2017-04-04 06:31 | RADIOLOGY REPORT (SQ) ---
EXAM DESCRIPTION: CHEST SINGLE VIEW COMPLETED DATE/TIME: 04/04/2017 6:16 am REASON FOR STUDY: respiratory failure COMPARISON: Chest x-ray 04/03/2017. CT chest 02/10/2017 EXAM PARAMETERS: NUMBER OF VIEWS: One view TECHNIQUE: Single frontal radiograph of the chest. RADIATION DOSE: N/A LIMITATIONS: The patient is rotated. FINDINGS: TEMPORARY SUPPORT DEVICES:ETT in expected location. NG tube courses below the left yohannes-d iaphragm in to the stomach. Central venous access catheter tip is in expected location. LUNGS AND PLEURA: Hyperlucent lungs, suggestive of emphysema. No consolidation, pleural effusion or pneumothorax. MEDIASTINUM AND HILAR STRUCTURES: No masses. Contour normal. HEART AND VASCULAR STRUCTURES: The heart is not enlarged. No overt vascular congestion. BONES: No acute findings. IMPRESSION: No acute radiographic finding in the chest. Emphysema. TECHNICAL DOCUMENTATION: JOB ID: [id number] [employer]- All Rights Reserved
--- NOTE | 2017-04-04 09:34 | PDOC CONSULTATION ---
Consultation Consult Date: 04/03/17 Attending physician:: HAZEL WYLIE Consult reason:: acute/chronic resp failure History of Present Illness Admission Date/PCP: 04/03/17 10:07 HAZEL WYLIE MD History of Present Illness: ROSALINDA SAGE is a 62 year old female well know to this service presented to ED obtunded with elevated PCO2 and subsequently intubated Past Medical History Cardiac Medical History: Reports: Congestive Heart Failure, Hyperlipidema, Hypertension Pulmonary Medical History: Reports: Chronic Obstructive Pulmonary Disease (COPD) , Intubation, Pneumonia, Respiratory Failure Neurological Medical History: Reports: Seizures Denies: Multiple Sclerosis Endocrine Medical History: Reports: Obesity Malignancy Medical History: Reports: Lung Cancer Denies: Brain Cancer, Liver Cancer, Pancreatic Cancer GI Medical History: Reports: Crohn's Disease, Hiatal Hernia, Ulcerative Colitis Musculoskeltal Medical History: Reports: Arthritis Denies: Gout Skin Medical History: Reports: Eczema Denies: Psoriasis Psychiatric Medical History: Reports: Depression Denies: Attention Deficit Hyperactivity Disorder, Bipolar Disorder, Post Traumatic Stress Disorder, Schizoaffective Disorder Traumatic Medical History: Reports: Pneumothorax Hematology: Reports: Anemia Infectious Medical History: Denies: Hepatitis B Past Surgical History Past Surgical History: Reports: Appendectomy, Cardiac Catheterization, Section - x3, Cholecystectomy, Hysterectomy, Vascular Surgery - left femoral artery bypass, Other - lobectomy Social History Information Source: [facility] Records Lives with: Family Smoking Status: Never Smoker Frequency of Alcohol Use: None Hx Recreational Drug Use: No Drugs: None Hx Prescription Drug Abuse: No Do you have pets?: No - Advance Directive Resuscitation Status: Full Code Family History Family History: CAD, Hypertension, Malignancy Parental Family History Reviewed: Yes Children Family History Reviewed: Yes Sibling(s) Family History Reviewed.: Yes Medication/Allergy Home Medications: Clarithromycin [Biaxin 500 mg Tablet] 500 mg PO Q12 MDD FILLED FOR 7DS 04/03/17 Clonazepam [Klonopin 1 mg Tablet] 1 mg PO Q12 04/03/17 Doxepin HCl [Silenor] 6 mg PO QHS 04/03/17 Melatonin/Pyridoxine HCl (B6) [Melatonin 10 mg Tablet] 10 mg PO QHS 04/03/17 Nystatin/Dexameth/Diphen [Magic Mouthwash (Omh Formula) Susp] 5 ml PO TID Ondansetron HCl [Zofran 8 mg Tablet] 8 mg PO Q8HP PRN 04/03/17 Oxycodone HCl [Oxycodone HCl ER] 40 mg PO Q8A 04/03/17 Oxycodone HCl/Acetaminophen [Percocet 10-325 Mg Tablet] 1 tab PO Q6HP PRN Quetiapine Fumarate [Seroquel Xr] 200 mg PO QHS 04/03/17 Zolpidem Tartrate [Edluar SL 10 mg Tablet] 10 mg SL QHS 04/03/17 Allergies/Adverse Reactions: adhesive tape Allergy (Verified 08/18/15 00:15) Review of Systems ROS unobtainable: Due to endotracheal tube Physical Exam Vital Signs: Temp Pulse Resp BP Pulse Ox 93.2 F L 68 16 119/62 96 04/03/17 13:34 04/03/17 13:34 04/03/17 13:49 04/03/17 13:34 04/03/17 13:49 Intake & Output 04/02/17 04/03/17 04/04/17 06:59 06:59 06:59 Weight 65.1 kg General appearance: PRESENT: no acute distress, disheveled, morbidly obese, well -developed. ABSENT: cooperative, mild distress, obese, severe distress, thin Head exam: PRESENT: atraumatic, normocephalic Eye exam: PRESENT: conjunctiva pale. ABSENT: conjunctival injection, conjunctiva pink, EOMI, nystagmus, periorbital swelling, scleral icterus Mouth exam: PRESENT: dry mucosa, neck supple, tongue midline, other - ET tube Neck exam: ABSENT: carotid bruit, JVD, lymphadenopathy, thyromegaly, tracheal deviation, tracheostomy Respiratory exam: PRESENT: decreased breath sounds, prolonged expiratory phas, rhonchi, symmetrical, unlabored. ABSENT: accessory muscle use, chest wall tenderness, clear to auscultation sherry, crackles, retraction, stridor, tachypnea Cardiovascular exam: PRESENT: RRR, +S1, +S2. ABSENT: clicks, gallop, rubs Pulses: ABSENT: normal radial pulses GI/Abdominal exam: PRESENT: normal bowel sounds, soft. ABSENT: distended, guarding, mass, organolmegaly, rebound, tenderness Gentrourinary exam: PRESENT: indwelling catheter Extremities exam: ABSENT: clubbing, full ROM Musculoskeletal exam: ABSENT: ambulatory, deformity, dislocation Skin exam: PRESENT: dry, warm Results Laboratory Results: 04/03/17 11:15 04/03/17 11:15 04/03/17 04/03/17 04/03/17 11:15 11:15 11:15 WBC 7.0 RBC 3.67 L Hgb 10.9 L Hct 32.9 L MCV 90 MCH 29.8 MCHC 33.2 RDW 13.8 Plt Count 206 Seg Neutrophils % 62.8 Lymphocytes % 23.6 Monocytes % 9.1 Eosinophils % 3.3 Basophils % 1.2 Absolute Neutrophils 4.4 Absolute Lymphocytes 1.7 Absolute Monocytes 0.6 Absolute Eosinophils 0.2 Absolute Basophils 0.1 Carbonic Acid HCO3/H2CO3 Ratio ABG pH ABG pCO2 ABG pO2 ABG HCO3 ABG O2 Saturation ABG Base Excess FiO2 Sodium 141.5 Potassium 4.2 Chloride 98 Carbon Dioxide 36 H Anion Gap 8 BUN 8 Creatinine 0.81 Est GFR ( Amer) > 60 Est GFR (Non-Af Amer) > 60 Glucose 96 Calcium 8.7 Phosphorus 3.8 Magnesium 1.9 Total Bilirubin 0.4 AST 44 H ALT 43 Alkaline Phosphatase 59 Ammonia Total Protein 6.5 Albumin 3.7 Amylase 77 Lipase 78.1 Urine Color Urine Appearance Urine pH Ur Specific [place] Urine Protein Urine Glucose (UA) Urine Ketones Urine Blood Urine Nitrite Ur Leukocyte Esterase Urine WBC (Auto) Urine RBC (Auto) 04/03/17 04/03/17 04/03/17 12:52 14:00 14:00 WBC RBC Hgb Hct MCV MCH MCHC RDW Plt Count Seg Neutrophils % Lymphocytes % Monocytes % Eosinophils % Basophils % Absolute Neutrophils Absolute Lymphocytes Absolute Monocytes Absolute Eosinophils Absolute Basophils Carbonic Acid 2.46 H HCO3/H2CO3 Ratio 14:1 ABG pH 7.25 L ABG pCO2 81.7 H* ABG pO2 147.2 H ABG HCO3 34.6 H ABG O2 Saturation 98.4 H ABG Base Excess 5.7 FiO2 2 L Sodium Potassium Chloride Carbon Dioxide Anion Gap BUN Creatinine Est GFR ( Amer) Est GFR (Non-Af Amer) Glucose Calcium Phosphorus Magnesium Total Bilirubin AST ALT Alkaline Phosphatase Ammonia < 8.7 L Total Protein Albumin Amylase Lipase Urine Color YELLOW Urine Appearance CLEAR Urine pH 6.0 Ur Specific [place] 1.006 Urine Protein NEGATIVE Urine Glucose (UA) NEGATIVE Urine Ketones NEGATIVE Urine Blood NEGATIVE Urine Nitrite NEGATIVE Ur Leukocyte Esterase NEGATIVE Urine WBC (Auto) 0 Urine RBC (Auto) 0 04/03/17 14:00 Creatine Kinase < 20 L Impressions: Chest X-Ray 04/03/17 11:05 IMPRESSION: NO ACUTE RADIOGRAPHIC FINDING IN THE CHEST. Head CT 04/03/17 11:39 IMPRESSION: NO ACUTE INTRACRANIAL IMAGING FINDINGS. EVIDENCE OF ACUTE STROKE: NO. Assessment & Plan - Diagnosis (1) Acute and chronic respiratory failure with hypercapnia Is this a current diagnosis for this admission?: Yes Plan: recurring resp failure end stage lung disease (2) Acute exacerbation of chronic obstructive airways disease Is this a current diagnosis for this admission?: Yes Plan: bronchodilator therapy;systemic steroid (3) COPD (chronic obstructive pulmonary disease) Qualifiers: COPD type: emphysema Emphysema type: centrilobular Qualified Code(s): J43.2 - Centrilobular emphysema Is this a current diagnosis for this admission?: Yes Plan: continue current therapy - Time Total Critical Time (Minutes): 50
--- NOTE | 2017-04-04 09:38 | PDOC PROGRESS REPORT ---
Subjective Progress Note for:: 04/04/17 Reason For Visit: DIRECT ADMIT-ACUTE ON CHRONIC RESPIRATORY ACIDOSIS Physical Exam Vital Signs: Temp Pulse Resp BP Pulse Ox 97.3 F 70 10 L 140/54 H 100 04/04/17 07:47 04/04/17 07:47 04/04/17 07:47 04/04/17 07:47 04/04/17 07:47 Intake & Output 04/03/17 04/04/17 04/05/17 06:59 06:59 06:59 Intake Total 1619 Output Total 1780 30 Balance -161 -30 Weight 64.2 kg General appearance: PRESENT: no acute distress, disheveled, morbidly obese, well -developed. ABSENT: cooperative, mild distress, obese, severe distress, thin Head exam: PRESENT: atraumatic, normocephalic Eye exam: PRESENT: conjunctiva pale, EOMI, scleral icterus. ABSENT: conjunctival injection, conjunctiva pink, nystagmus, periorbital swelling Mouth exam: PRESENT: dry mucosa, neck supple, tongue midline, other - ET tube Neck exam: ABSENT: carotid bruit, JVD, lymphadenopathy, thyromegaly, tracheal deviation, tracheostomy Respiratory exam: PRESENT: decreased breath sounds, prolonged expiratory phas, rhonchi, symmetrical, unlabored, wheezes. ABSENT: accessory muscle use, chest wall tenderness, clear to auscultation sherry, crackles, rales, retraction, stridor , tachypnea Cardiovascular exam: PRESENT: RRR, +S1, +S2. ABSENT: rubs Pulses: PRESENT: normal radial pulses GI/Abdominal exam: PRESENT: normal bowel sounds, soft. ABSENT: distended, guarding, mass, organolmegaly, rebound, tenderness Gentrourinary exam: PRESENT: indwelling catheter Extremities exam: ABSENT: clubbing, joint swelling Musculoskeletal exam: ABSENT: ambulatory, deformity, dislocation Skin exam: PRESENT: dry, warm Results Laboratory Results: 04/04/17 02:55 04/04/17 02:55 04/03/17 04/03/17 04/03/17 11:15 11:15 11:15 WBC 7.0 RBC 3.67 L Hgb 10.9 L Hct 32.9 L MCV 90 MCH 29.8 MCHC 33.2 RDW 13.8 Plt Count 206 Seg Neutrophils % 62.8 Lymphocytes % 23.6 Monocytes % 9.1 Eosinophils % 3.3 Basophils % 1.2 Absolute Neutrophils 4.4 Absolute Lymphocytes 1.7 Absolute Monocytes 0.6 Absolute Eosinophils 0.2 Absolute Basophils 0.1 Carbonic Acid HCO3/H2CO3 Ratio ABG pH ABG pCO2 ABG pO2 ABG HCO3 ABG O2 Saturation ABG Base Excess FiO2 Sodium 141.5 Potassium 4.2 Chloride 98 Carbon Dioxide 36 H Anion Gap 8 BUN 8 Creatinine 0.81 Est GFR ( Amer) > 60 Est GFR (Non-Af Amer) > 60 Glucose 96 Calcium 8.7 Phosphorus 3.8 Magnesium 1.9 Total Bilirubin 0.4 AST 44 H ALT 43 Alkaline Phosphatase 59 Ammonia Total Protein 6.5 Albumin 3.7 Triglycerides Cholesterol LDL Cholesterol Direct VLDL Cholesterol HDL Cholesterol Amylase 77 Lipase 78.1 TSH Free T4 Urine Color Urine Appearance Urine pH Ur Specific [place] Urine Protein Urine Glucose (UA) Urine Ketones Urine Blood Urine Nitrite Ur Leukocyte Esterase Urine WBC (Auto) Urine RBC (Auto) 04/03/17 04/03/17 04/03/17 11:15 12:52 14:00 WBC RBC Hgb Hct MCV MCH MCHC RDW Plt Count Seg Neutrophils % Lymphocytes % Monocytes % Eosinophils % Basophils % Absolute Neutrophils Absolute Lymphocytes Absolute Monocytes Absolute Eosinophils Absolute Basophils Carbonic Acid 2.46 H HCO3/H2CO3 Ratio 14:1 ABG pH 7.25 L ABG pCO2 81.7 H* ABG pO2 147.2 H ABG HCO3 34.6 H ABG O2 Saturation 98.4 H ABG Base Excess 5.7 FiO2 2 L Sodium Potassium Chloride Carbon Dioxide Anion Gap BUN Creatinine Est GFR ( Amer) Est GFR (Non-Af Amer) Glucose Calcium Phosphorus Magnesium Total Bilirubin AST ALT Alkaline Phosphatase Ammonia < 8.7 L Total Protein Albumin Triglycerides Cholesterol LDL Cholesterol Direct VLDL Cholesterol HDL Cholesterol Amylase Lipase TSH 1.90 Free T4 1.29 Urine Color Urine Appearance Urine pH Ur Specific [place] Urine Protein Urine Glucose (UA) Urine Ketones Urine Blood Urine Nitrite Ur Leukocyte Esterase Urine WBC (Auto) Urine RBC (Auto) 04/03/17 04/03/17 04/03/17 14:00 14:40 16:20 WBC RBC Hgb Hct MCV MCH MCHC RDW Plt Count Seg Neutrophils % Lymphocytes % Monocytes % Eosinophils % Basophils % Absolute Neutrophils Absolute Lymphocytes Absolute Monocytes Absolute Eosinophils Absolute Basophils Carbonic Acid 2.22 H 0.91 L HCO3/H2CO3 Ratio 14:1 28:1 ABG pH 7.24 L 7.54 H ABG pCO2 73.8 H* 30.3 L ABG pO2 163.3 H 179.4 H ABG HCO3 31.2 H 25.6 ABG O2 Saturation 98.7 H 99.4 H ABG Base Excess 2.5 3.5 FiO2 40% 40% Sodium Potassium Chloride Carbon Dioxide Anion Gap BUN Creatinine Est GFR ( Amer) Est GFR (Non-Af Amer) Glucose Calcium Phosphorus Magnesium Total Bilirubin AST ALT Alkaline Phosphatase Ammonia Total Protein Albumin Triglycerides Cholesterol LDL Cholesterol Direct VLDL Cholesterol HDL Cholesterol Amylase Lipase TSH Free T4 Urine Color YELLOW Urine Appearance CLEAR Urine pH 6.0 Ur Specific [place] 1.006 Urine Protein NEGATIVE Urine Glucose (UA) NEGATIVE Urine Ketones NEGATIVE Urine Blood NEGATIVE Urine Nitrite NEGATIVE Ur Leukocyte Esterase NEGATIVE Urine WBC (Auto) 0 Urine RBC (Auto) 0 04/03/17 04/03/17 04/04/17 19:00 20:30 02:55 WBC RBC Hgb Hct MCV MCH MCHC RDW Plt Count Seg Neutrophils % Lymphocytes % Monocytes % Eosinophils % Basophils % Absolute Neutrophils Absolute Lymphocytes Absolute Monocytes Absolute Eosinophils Absolute Basophils Carbonic Acid 0.81 L 1.02 L HCO3/H2CO3 Ratio 30:1 25:1 ABG pH 7.57 H 7.51 H ABG pCO2 27.0 L 34.0 L ABG pO2 166.1 H 98.2 ABG HCO3 24.4 26.3 H ABG O2 Saturation 99.4 H 98.0 ABG Base Excess 3.1 3.4 FiO2 40% 30% Sodium 144.5 Potassium 4.2 Chloride 110 H Carbon Dioxide 28 Anion Gap 7 BUN 8 Creatinine 0.78 Est GFR ( Amer) > 60 Est GFR (Non-Af Amer) > 60 Glucose 73 L Calcium 8.4 Phosphorus Magnesium 1.7 Total Bilirubin 0.4 AST 35 ALT 45 Alkaline Phosphatase 58 Ammonia Total Protein 5.4 L Albumin 3.0 L Triglycerides 119 Cholesterol 140.59 LDL Cholesterol Direct 75 VLDL Cholesterol 24.0 HDL Cholesterol 44 Amylase Lipase TSH Free T4 Urine Color Urine Appearance Urine pH Ur Specific [place] Urine Protein Urine Glucose (UA) Urine Ketones Urine Blood Urine Nitrite Ur Leukocyte Esterase Urine WBC (Auto) Urine RBC (Auto) 04/04/17 04/04/17 02:55 04:50 WBC 9.5 RBC 3.44 L Hgb 10.2 L Hct 30.6 L MCV 89 MCH 29.7 MCHC 33.4 RDW 13.7 Plt Count 173 Seg Neutrophils % 55.0 Lymphocytes % 31.0 Monocytes % 9.9 Eosinophils % 2.7 Basophils % 1.4 Absolute Neutrophils 5.2 Absolute Lymphocytes 2.9 Absolute Monocytes 0.9 Absolute Eosinophils 0.3 Absolute Basophils 0.1 Carbonic Acid 1.43 H HCO3/H2CO3 Ratio 20:1 ABG pH 7.40 ABG pCO2 47.5 H ABG pO2 75.5 L ABG HCO3 28.7 H ABG O2 Saturation 95.0 ABG Base Excess 3.3 FiO2 30% Sodium Potassium Chloride Carbon Dioxide Anion Gap BUN Creatinine Est GFR ( Amer) Est GFR (Non-Af Amer) Glucose Calcium Phosphorus Magnesium Total Bilirubin AST ALT Alkaline Phosphatase Ammonia Total Protein Albumin Triglycerides Cholesterol LDL Cholesterol Direct VLDL Cholesterol HDL Cholesterol Amylase Lipase TSH Free T4 Urine Color Urine Appearance Urine pH Ur Specific [place] Urine Protein Urine Glucose (UA) Urine Ketones Urine Blood Urine Nitrite Ur Leukocyte Esterase Urine WBC (Auto) Urine RBC (Auto) 04/03/17 04/03/17 04/03/17 11:15 14:00 14:00 Creatine Kinase < 20 L CK-MB (CK-2) 0.98 Troponin I < 0.012 NT-Pro-B Natriuret Pep 220 04/03/17 04/03/17 04/04/17 20:30 20:30 02:55 Creatine Kinase < 20 L 21 L CK-MB (CK-2) 1.00 Troponin I < 0.012 NT-Pro-B Natriuret Pep 04/04/17 02:55 Creatine Kinase CK-MB (CK-2) 0.70 Troponin I < 0.012 NT-Pro-B Natriuret Pep Impressions: Head CT 04/03/17 11:39 IMPRESSION: NO ACUTE INTRACRANIAL IMAGING FINDINGS. EVIDENCE OF ACUTE STROKE: NO. Chest X-Ray 04/04/17 06:00 IMPRESSION: No acute radiographic finding in the chest. Emphysema. Assessment & Plan - Diagnosis (1) Acute and chronic respiratory failure with hypercapnia Is this a current diagnosis for this admission?: Yes Plan: recurring resp failure end stage lung disease (2) Acute exacerbation of chronic obstructive airways disease Is this a current diagnosis for this admission?: Yes Plan: bronchodilator therapy;systemic steroid (3) COPD (chronic obstructive pulmonary disease) Qualifiers: COPD type: emphysema Emphysema type: centrilobular Qualified Code(s): J43.2 - Centrilobular emphysema Is this a current diagnosis for this admission?: Yes - Time Total Critical Time (Minutes): 40
[2017-04-04] MEDS: ENOXAPARIN SODIUM INJ 40 MG/0.4 ML DISP.SYRIN SUBCUT SCH (11:18)
[2017-04-04] MEDS ORDERED: TOBRAMYCIN SULFATE NEB 40 MG/ML 30 ML NEB ONE (13:00)
[2017-04-04] MEDS: LEVOFLOXACIN 750 MG/D5W RTU 750 MG/150 ML RTUPB IV SCH (14:33)
--- NOTE | 2017-04-04 18:48 | PDOC H&P ---
History of Present Illness Admission Date/PCP: 04/03/17 10:07 HAZEL WYLIE MD History of Present Illness: Patient 62-year-old female with history of chronic respiratory failure, she came to the office with her spouse for evaluation of severe stupor, she was not awake consistently to finish a sentence in the office. She has multiple hospitalization, recently discharged on 02/17/2017. The initial blood pressure recorded in the office was low subsequent blood pressure recorded in the office showed 130 systolic she was admitted directly from the office to the hospital, when she arrived on the floor the blood pressure recorded was 60 systolic, the arterial blood gas showed pH of 7.25, PCO2 81 consistent with acute respiratory acidosis. She was transferred to ICU, mechanically intubated and vent supported. She was also started on intravenous pressors. Patient is partly not compliant with the use of noninvasive positive pressure ventilation that she is supposed to be on Past Medical History Cardiac Medical History: Reports: Hyperlipidema Pulmonary Medical History: Reports: Chronic Obstructive Pulmonary Disease (COPD) , Intubation, Pneumonia, Respiratory Failure Neurological Medical History: Reports: Seizures Endocrine Medical History: Reports: Obesity Malignancy Medical History: Reports: Lung Cancer GI Medical History: Reports: Crohn's Disease, Hiatal Hernia, Ulcerative Colitis Musculoskeltal Medical History: Reports: Arthritis Skin Medical History: Reports: Eczema Psychiatric Medical History: Reports: Depression Traumatic Medical History: Reports: Pneumothorax Hematology: Reports: Anemia Infectious Medical History: Denies: Hepatitis B Past Surgical History Past Surgical History: Reports: Appendectomy, Cardiac Catheterization, Section - x3, Cholecystectomy, Hysterectomy, Vascular Surgery - left femoral artery bypass, Other - lobectomy Social History Lives with: Family Smoking Status: Former Smoker - She now smokes vapor Frequency of Alcohol Use: None Hx Recreational Drug Use: No Drugs: None Hx Prescription Drug Abuse: No - Advance Directive Resuscitation Status: Full Code Family History Family History: CAD, Hypertension, Malignancy Parental Family History Reviewed: Yes Children Family History Reviewed: Yes Sibling(s) Family History Reviewed.: Yes Medication/Allergy Home Medications: Clarithromycin [Biaxin 500 mg Tablet] 500 mg PO Q12 MDD FILLED FOR 7DS 04/03/17 Clonazepam [Klonopin 1 mg Tablet] 1 mg PO Q12 04/03/17 Doxepin HCl [Silenor] 6 mg PO QHS 04/03/17 Melatonin/Pyridoxine HCl (B6) [Melatonin 10 mg Tablet] 10 mg PO QHS 04/03/17 Nystatin/Dexameth/Diphen [Magic Mouthwash (Omh Formula) Susp] 5 ml PO TID Ondansetron HCl [Zofran 8 mg Tablet] 8 mg PO Q8HP PRN 04/03/17 Oxycodone HCl [Oxycodone HCl ER] 40 mg PO Q8A 04/03/17 Oxycodone HCl/Acetaminophen [Percocet 10-325 Mg Tablet] 1 tab PO Q6HP PRN Quetiapine Fumarate [Seroquel Xr] 200 mg PO QHS 04/03/17 Zolpidem Tartrate [Edluar SL 10 mg Tablet] 10 mg SL QHS 04/03/17 Allergies/Adverse Reactions: adhesive tape Allergy (Verified 08/18/15 00:15) Review of Systems Constitutional: PRESENT: fatigue Ears: ABSENT: hearing changes Cardiovascular: ABSENT: as per HPI, chest pain, dyspnea on exertion, edema, orthropnea, palpitations, other Respiratory: PRESENT: cough Gastrointestinal: ABSENT: abdominal pain, constipation, diarrhea, hematemesis, hematochezia, nausea, vomiting Genitourinary: ABSENT: dysuria, hematuria Musculoskeletal: ABSENT: joint swelling Integumentary: ABSENT: rash, wounds Neurological: PRESENT: confusion Psychiatric: ABSENT: anxiety, depression, homidical ideation, suicidal ideation Endocrine: ABSENT: cold intolerance, heat intolerance, menstrual abnormalities, polydipsia, polyuria Hematologic/Lymphatic: ABSENT: easy bleeding, easy bruising, lymphadenopathy Physical Exam Vital Signs: Temp Pulse Resp BP Pulse Ox 99.7 F 81 12 147/62 H 100 04/04/17 18:00 04/04/17 18:00 04/04/17 18:00 04/04/17 18:00 04/04/17 18:00 Intake & Output 04/03/17 04/04/17 04/05/17 06:59 06:59 06:59 Intake Total 1619 1671 Output Total 5349 865 Balance -161 806 Weight 64.2 kg General appearance: PRESENT: other - She is very stuporous Head exam: PRESENT: atraumatic, normocephalic Eye exam: PRESENT: PERRLA. ABSENT: scleral icterus Ear exam: PRESENT: normal external ear exam Mouth exam: PRESENT: moist, tongue midline Neck exam: PRESENT: full ROM Respiratory exam: PRESENT: clear to auscultation sherry Cardiovascular exam: PRESENT: RRR, +S1, +S2 Pulses: PRESENT: normal dorsalis pedis pul, +2 pedal pulses bilateral Vascular exam: PRESENT: normal capillary refill GI/Abdominal exam: PRESENT: normal bowel sounds, soft Rectal exam: PRESENT: deferred Neurological exam: PRESENT: altered. ABSENT: motor sensory deficit Psychiatric exam: ABSENT: homicidal ideation, suicidal ideation Skin exam: PRESENT: dry, intact, warm Results Laboratory Results: 04/04/17 02:55 04/04/17 02:55 04/03/17 04/03/17 04/04/17 19:00 20:30 02:55 WBC RBC Hgb Hct MCV MCH MCHC RDW Plt Count Seg Neutrophils % Lymphocytes % Monocytes % Eosinophils % Basophils % Absolute Neutrophils Absolute Lymphocytes Absolute Monocytes Absolute Eosinophils Absolute Basophils Carbonic Acid 0.81 L 1.02 L HCO3/H2CO3 Ratio 30:1 25:1 ABG pH 7.57 H 7.51 H ABG pCO2 27.0 L 34.0 L ABG pO2 166.1 H 98.2 ABG HCO3 24.4 26.3 H ABG O2 Saturation 99.4 H 98.0 ABG Base Excess 3.1 3.4 FiO2 40% 30% Sodium 144.5 Potassium 4.2 Chloride 110 H Carbon Dioxide 28 Anion Gap 7 BUN 8 Creatinine 0.78 Est GFR ( Amer) > 60 Est GFR (Non-Af Amer) > 60 Glucose 73 L Calcium 8.4 Magnesium 1.7 Total Bilirubin 0.4 AST 35 ALT 45 Alkaline Phosphatase 58 Total Protein 5.4 L Albumin 3.0 L Triglycerides 119 Cholesterol 140.59 LDL Cholesterol Direct 75 VLDL Cholesterol 24.0 HDL Cholesterol 44 04/04/17 04/04/17 02:55 04:50 WBC 9.5 RBC 3.44 L Hgb 10.2 L Hct 30.6 L MCV 89 MCH 29.7 MCHC 33.4 RDW 13.7 Plt Count 173 Seg Neutrophils % 55.0 Lymphocytes % 31.0 Monocytes % 9.9 Eosinophils % 2.7 Basophils % 1.4 Absolute Neutrophils 5.2 Absolute Lymphocytes 2.9 Absolute Monocytes 0.9 Absolute Eosinophils 0.3 Absolute Basophils 0.1 Carbonic Acid 1.43 H HCO3/H2CO3 Ratio 20:1 ABG pH 7.40 ABG pCO2 47.5 H ABG pO2 75.5 L ABG HCO3 28.7 H ABG O2 Saturation 95.0 ABG Base Excess 3.3 FiO2 30% Sodium Potassium Chloride Carbon Dioxide Anion Gap BUN Creatinine Est GFR ( Amer) Est GFR (Non-Af Amer) Glucose Calcium Magnesium Total Bilirubin AST ALT Alkaline Phosphatase Total Protein Albumin Triglycerides Cholesterol LDL Cholesterol Direct VLDL Cholesterol HDL Cholesterol 04/03/17 04/03/17 04/03/17 11:15 14:00 14:00 Creatine Kinase < 20 L CK-MB (CK-2) 0.98 Troponin I < 0.012 NT-Pro-B Natriuret Pep 220 04/03/17 04/03/17 04/04/17 20:30 20:30 02:55 Creatine Kinase < 20 L 21 L CK-MB (CK-2) 1.00 Troponin I < 0.012 NT-Pro-B Natriuret Pep 04/04/17 02:55 Creatine Kinase CK-MB (CK-2) 0.70 Troponin I < 0.012 NT-Pro-B Natriuret Pep Impressions: Head CT 04/03/17 11:39 IMPRESSION: NO ACUTE INTRACRANIAL IMAGING FINDINGS. EVIDENCE OF ACUTE STROKE: NO. Chest X-Ray 04/04/17 06:00 IMPRESSION: No acute radiographic finding in the chest. Emphysema. Assessment & Plan - Diagnosis (1) Acute hypercapnic respiratory failure Is this a current diagnosis for this admission?: Yes Plan: Patient on mechanical ventilation, presently in ICU, the initial vent setting is ordered (2) Hypotension Qualifiers: Hypotension type: unspecified hypotension type Qualified Code(s): I95.9 - Hypotension, unspecified Is this a current diagnosis for this admission?: Yes Plan: The blood pressure is not responsive to fluid, she was giving a total of more than 5 L, blood pressure remains low, she is started on intravenous norepinephrine, the potential etiology would include sepsis, she is empirically started on IV antibiotic to cover MRSA, and gram-negative sepsis (3) COPD (chronic obstructive pulmonary disease) Is this a current diagnosis for this admission?: Yes (4) Acute and chronic respiratory failure ([id number]) Qualifiers: Respiratory failure complication: hypercapnia Qualified Code(s): J96.22 - Acute and chronic respiratory failure with hypercapnia Is this a current diagnosis for this admission?: Yes (5) Acute and chronic respiratory failure with hypercapnia Is this a current diagnosis for this admission?: Yes - Time Time Spent: Greater than 70 Minutes - Total time spent more than 70 minutes from the office to the hospital, care coordinated
[2017-04-04] MEDS: TOBRAMYCIN SULFATE NEB 40 MG/ML 30 ML NEB SCH (20:47)
[2017-04-04] MEDS: IPRATROPIUM/ALBUTEROL 0.5-2.5 MG/3 ML AMPUL NEB PRN (20:47)
--- NOTE | 2017-04-04 21:02 | PDOC PROGRESS REPORT ---
Subjective Progress Note for:: 04/04/17 Subjective:: Patient continues to require mechanical ventilation but on weaning mode, no more IV vasopressors Reason For Visit: DIRECT ADMIT-ACUTE ON CHRONIC RESPIRATORY ACIDOSIS Physical Exam Vital Signs: Temp Pulse Resp BP Pulse Ox 99.7 F 81 12 147/62 H 100 04/04/17 19:27 04/04/17 18:00 04/04/17 18:00 04/04/17 18:00 04/04/17 18:00 Intake & Output 04/03/17 04/04/17 04/05/17 06:59 06:59 06:59 Intake Total 1619 1671 Output Total 1780 965 Balance -161 706 Weight 64.2 kg General appearance: PRESENT: no acute distress Eye exam: PRESENT: PERRLA Respiratory exam: PRESENT: clear to auscultation sherry Cardiovascular exam: PRESENT: +S1, +S2 GI/Abdominal exam: PRESENT: soft Neurological exam: PRESENT: alert Results Laboratory Results: 04/04/17 02:55 04/04/17 02:55 04/04/17 04/04/17 04/04/17 02:55 02:55 04:50 WBC 9.5 RBC 3.44 L Hgb 10.2 L Hct 30.6 L MCV 89 MCH 29.7 MCHC 33.4 RDW 13.7 Plt Count 173 Seg Neutrophils % 55.0 Lymphocytes % 31.0 Monocytes % 9.9 Eosinophils % 2.7 Basophils % 1.4 Absolute Neutrophils 5.2 Absolute Lymphocytes 2.9 Absolute Monocytes 0.9 Absolute Eosinophils 0.3 Absolute Basophils 0.1 Carbonic Acid 1.43 H HCO3/H2CO3 Ratio 20:1 ABG pH 7.40 ABG pCO2 47.5 H ABG pO2 75.5 L ABG HCO3 28.7 H ABG O2 Saturation 95.0 ABG Base Excess 3.3 FiO2 30% Sodium 144.5 Potassium 4.2 Chloride 110 H Carbon Dioxide 28 Anion Gap 7 BUN 8 Creatinine 0.78 Est GFR ( Amer) > 60 Est GFR (Non-Af Amer) > 60 Glucose 73 L Calcium 8.4 Magnesium 1.7 Total Bilirubin 0.4 AST 35 ALT 45 Alkaline Phosphatase 58 Total Protein 5.4 L Albumin 3.0 L Triglycerides 119 Cholesterol 140.59 LDL Cholesterol Direct 75 VLDL Cholesterol 24.0 HDL Cholesterol 44 04/03/17 04/03/17 04/03/17 11:15 14:00 14:00 Creatine Kinase < 20 L CK-MB (CK-2) 0.98 Troponin I < 0.012 NT-Pro-B Natriuret Pep 220 04/03/17 04/03/17 04/04/17 20:30 20:30 02:55 Creatine Kinase < 20 L 21 L CK-MB (CK-2) 1.00 Troponin I < 0.012 NT-Pro-B Natriuret Pep 04/04/17 02:55 Creatine Kinase CK-MB (CK-2) 0.70 Troponin I < 0.012 NT-Pro-B Natriuret Pep Impressions: Head CT 04/03/17 11:39 IMPRESSION: NO ACUTE INTRACRANIAL IMAGING FINDINGS. EVIDENCE OF ACUTE STROKE: NO. Chest X-Ray 04/04/17 06:00 IMPRESSION: No acute radiographic finding in the chest. Emphysema. Assessment & Plan - Diagnosis (1) Acute hypercapnic respiratory failure Is this a current diagnosis for this admission?: Yes (2) Hypotension Qualifiers: Hypotension type: unspecified hypotension type Qualified Code(s): I95.9 - Hypotension, unspecified Is this a current diagnosis for this admission?: Yes (3) COPD (chronic obstructive pulmonary disease) Is this a current diagnosis for this admission?: Yes (4) Acute and chronic respiratory failure ([id number]) Qualifiers: Respiratory failure complication: hypercapnia Qualified Code(s): J96.22 - Acute and chronic respiratory failure with hypercapnia Is this a current diagnosis for this admission?: Yes (5) Acute and chronic respiratory failure with hypercapnia Is this a current diagnosis for this admission?: Yes (6) Pneumonia due to enterobacter aerogenes Is this a current diagnosis for this admission?: Yes Plan: The sputum culture grew Enterobacter aerogenes sensitive to cefepime, she will continue IV cefepime and Levaquin - Plan Summary Plan Summary: The sputum culture grew Enterobacter species sensitive to cefepime, patient already on cefepime
[2017-04-05] MEDS: VANCOMYCIN HCL 500 MG in DEXTROSE 5%-WATER 100 ML IV SCH ×2 (04:09→16:52)
[2017-04-05] MEDS: PROPOFOL 100 ML IV PRN ×3 (04:10→12:21)
[2017-04-05 04:41] LABS: ABSOLUTE BASOPHILS # (AUTO) 0.1 10^3/uL (0.0-0.2); ABSOLUTE EOSINOPHILS # (AUTO) 0.2 10^3/uL (0.0-0.6); ABSOLUTE LYMPHOCYTES (AUTO) 1.6 10^3/uL (0.5-4.7); ABSOLUTE MONOCYTES (AUTO) 0.9 10^3/uL (0.1-1.4); ABSOLUTE NEUT (AUTO) 7.7 10^3/uL (1.7-8.2); EOSINOPHILS % (AUTO) 1.6 % (0-6); HEMATOCRIT 29.8 % (36.0-47.0); HEMOGLOBIN 10.2 g/dL (12.0-15.5); HGB HCT DIFFERENCE 0.8; LYMPHOCYTES % (AUTO) 15.2 % (13-45); MEAN CORPUSCULAR HEMOGLOBIN 30.6 pg (27.0-33.4); MEAN CORPUSCULAR HGB CONC 34.3 g/dL (32.0-36.0); MEAN CORPUSCULAR VOLUME 89 fl (80-97); MONOCYTES % (AUTO) 8.6 % (3-13); RED BLOOD COUNT 3.34 10^6/uL (3.72-5.28); RED CELL DISTRIBUTION WIDTH 13.7 % (11.5-14.0); SEGMENTED NEUTROPHILS % (AUTO) 73.6 % (42-78); WHITE BLOOD COUNT 10.4 10^3/uL (4.0-10.5)
[2017-04-05 04:43] LABS: PROTHROMBIN TIME 13.2 SEC (11.4-15.4)
[2017-04-05 04:44] LABS: PARTIAL THROMBOPLASTIN TIME 33.1 SEC (23.5-35.8)
[2017-04-05 04:49] LABS: ALANINE AMINOTRANSFERASE 36 U/L (9-52); ALBUMIN 3.3 g/dL (3.5-5.0); ALKALINE PHOSPHATASE 64 U/L (38-126); ANION GAP 9 (5-19); ASPARTATE AMINO TRANSFERASE 31 U/L (14-36); BILIRUBIN,DIRECT 0.3 mg/dL (0.0-0.4); BILIRUBIN,TOTAL 0.3 mg/dL (0.2-1.3); BLOOD UREA NITROGEN 7 mg/dL (7-20); CARBON DIOXIDE 25 mmol/L (22-30); CHLORIDE 110 mmol/L (98-107); CREATININE RESULT 0.76 mg/dL (0.52-1.25); GLUCOSE 79 mg/dL (75-110); POTASSIUM 4.2 mmol/L (3.6-5.0); SODIUM 143.7 mmol/L (137-145); TOTAL PROTEIN 5.9 g/dL (6.3-8.2)
[2017-04-05] MEDS: CEFEPIME 2 GM/D5W RTU 2 GM/50 ML RTUPB IV SCH ×2 (05:52→18:16)
--- NOTE | 2017-04-05 07:19 | RADIOLOGY REPORT (SQ) ---
EXAM DESCRIPTION: CHEST SINGLE VIEW COMPLETED DATE/TIME: 04/05/2017 7:01 am REASON FOR STUDY: respiratory failure COMPARISON: Chest x-ray 04/04/2017. EXAM PARAMETERS: NUMBER OF VIEWS: One view TECHNIQUE: Single frontal radiograph of the chest. RADIATION DOSE: N/A LIMITATIONS: None. FINDINGS: TEMPORARY SUPPORT DEVICES:ETT in expected location. NG tube courses below the left yohannes-d iaphragm in to the stomach. Left-sided Port-A-Cath with the tip overlying the region of the SVC. LUNGS AND PLEURA: No consolidation, pleural effusion or pneumothorax. Hyperlucent lungs, suggestive of emphysema. Pleural scarring at the right lung base. Calcified granuloma in the right upper lobe. MEDIASTINUM AND HILAR STRUCTURES: No masses. Contour normal. HEART AND VASCULAR STRUCTURES: The heart is not enlarged. There is no overt vascular congestion. BONES: No acute findings. IMPRESSION: No acute radiographic finding in the chest. Emphysema. Support devices in expected locations. TECHNICAL DOCUMENTATION: JOB ID: [id number] [employer]- All Rights Reserved
[2017-04-05] MEDS: IPRATROPIUM/ALBUTEROL 0.5-2.5 MG/3 ML AMPUL NEB PRN (07:58)
[2017-04-05] MEDS: TOBRAMYCIN SULFATE NEB 40 MG/ML 30 ML NEB SCH ×2 (07:58→19:58)
[2017-04-05 08:30] LABS: ARTERIAL BLOOD BASE EXCESS -1.6 mmol/L; ARTERIAL BLOOD O2 SATURATION 94.9 % (94-98)
[2017-04-05] MEDS: ENOXAPARIN SODIUM INJ 40 MG/0.4 ML DISP.SYRIN SUBCUT SCH (10:14)
[2017-04-05] MEDS: LEVOFLOXACIN 750 MG/D5W RTU 750 MG/150 ML RTUPB IV SCH (15:16)
[2017-04-05] MEDS: OXYCODONE-ACETAMINOPHEN 5-325 MG TABLET NG PRN (16:51)
[2017-04-05] MEDS: OXYCODONE HCL IR 5 MG TABLET NG PRN (16:52)
--- NOTE | 2017-04-05 17:11 | PDOC PROGRESS REPORT ---
Subjective Progress Note for:: 04/05/17 Subjective:: She was seen by the bedside, extubated, off mechanical ventilation Reason For Visit: DIRECT ADMIT-ACUTE ON CHRONIC RESPIRATORY ACIDOSIS Physical Exam Vital Signs: Temp Pulse Resp BP Pulse Ox 99.1 F 101 H 23 H 180/65 H 100 04/05/17 16:00 04/05/17 16:00 04/05/17 16:00 04/05/17 14:15 04/05/17 16:00 Intake & Output 04/04/17 04/05/17 04/06/17 06:59 06:59 06:59 Intake Total 1619 3653 Output Total 1780 1850 1150 Balance -161 1803 -1150 Weight 64.2 kg 66.7 kg General appearance: PRESENT: mild distress Eye exam: PRESENT: conjunctiva pink, EOMI, PERRLA Respiratory exam: PRESENT: clear to auscultation sherry Cardiovascular exam: PRESENT: RRR, +S1, +S2 Vascular exam: PRESENT: normal capillary refill GI/Abdominal exam: PRESENT: normal bowel sounds, soft Rectal exam: PRESENT: deferred Neurological exam: PRESENT: alert. ABSENT: motor sensory deficit Skin exam: PRESENT: dry, intact, warm Results Laboratory Results: 04/05/17 04:29 04/05/17 04:29 04/05/17 04/05/17 04/05/17 04:29 04:29 08:15 WBC 10.4 RBC 3.34 L Hgb 10.2 L Hct 29.8 L MCV 89 MCH 30.6 MCHC 34.3 RDW 13.7 Plt Count 177 Seg Neutrophils % 73.6 Lymphocytes % 15.2 Monocytes % 8.6 Eosinophils % 1.6 Basophils % 1.0 Absolute Neutrophils 7.7 Absolute Lymphocytes 1.6 Absolute Monocytes 0.9 Absolute Eosinophils 0.2 Absolute Basophils 0.1 Carbonic Acid 1.14 HCO3/H2CO3 Ratio 20:1 ABG pH 7.40 ABG pCO2 37.8 ABG pO2 73.4 L ABG HCO3 22.9 ABG O2 Saturation 94.9 ABG Base Excess -1.6 FiO2 25% Sodium 143.7 Potassium 4.2 Chloride 110 H Carbon Dioxide 25 Anion Gap 9 BUN 7 Creatinine 0.76 Est GFR ( Amer) > 60 Est GFR (Non-Af Amer) > 60 Glucose 79 Calcium 9.0 Total Bilirubin 0.3 AST 31 ALT 36 Alkaline Phosphatase 64 Total Protein 5.9 L Albumin 3.3 L 04/03/17 14:00 Catheterized Urine Urine Culture - Final NO GROWTH 2 DAYS 04/03/17 04/03/17 04/03/17 11:15 14:00 14:00 Creatine Kinase < 20 L CK-MB (CK-2) 0.98 Troponin I < 0.012 NT-Pro-B Natriuret Pep 220 04/03/17 04/03/17 04/04/17 20:30 20:30 02:55 Creatine Kinase < 20 L 21 L CK-MB (CK-2) 1.00 Troponin I < 0.012 NT-Pro-B Natriuret Pep 04/04/17 02:55 Creatine Kinase CK-MB (CK-2) 0.70 Troponin I < 0.012 NT-Pro-B Natriuret Pep Impressions: Head CT 04/03/17 11:39 IMPRESSION: NO ACUTE INTRACRANIAL IMAGING FINDINGS. EVIDENCE OF ACUTE STROKE: NO. Chest X-Ray 04/05/17 06:00 IMPRESSION: No acute radiographic finding in the chest. Emphysema. Support devices in expected locations. Assessment & Plan - Diagnosis (1) Acute hypercapnic respiratory failure Is this a current diagnosis for this admission?: Yes (2) Hypotension Qualifiers: Hypotension type: unspecified hypotension type Qualified Code(s): I95.9 - Hypotension, unspecified Is this a current diagnosis for this admission?: Yes (3) COPD (chronic obstructive pulmonary disease) Is this a current diagnosis for this admission?: Yes (4) Acute and chronic respiratory failure ([id number]) Qualifiers: Respiratory failure complication: hypercapnia Qualified Code(s): J96.22 - Acute and chronic respiratory failure with hypercapnia Is this a current diagnosis for this admission?: Yes (5) Acute and chronic respiratory failure with hypercapnia Is this a current diagnosis for this admission?: Yes (6) Pneumonia due to enterobacter aerogenes Is this a current diagnosis for this admission?: Yes - Plan Summary Plan Summary: She will continue present treatment
[2017-04-05 17:47] LABS: CREATININE RESULT 0.68 mg/dL (0.52-1.25)
[2017-04-05] MEDS: NORMAL SALINE 1000 ML 1,000 ML IV PRN (21:19)
[2017-04-05] MEDS: CLONAZEPAM 1 MG TABLET NG SCH (21:54)
[2017-04-05] MEDS: OXYCODONE HCL IR 5 MG TABLET NG SCH (21:54)
[2017-04-05] MEDS ORDERED: DOXEPIN HCL 6 MG NG SCH (22:00)
[2017-04-05] MEDS ORDERED: DOXEPIN HCL 10 MG CAPSULE NG SCH (22:00)
[2017-04-06] MEDS: OXYCODONE HCL IR 5 MG TABLET NG PRN (01:44)
[2017-04-06] MEDS: OXYCODONE-ACETAMINOPHEN 5-325 MG TABLET NG PRN ×2 (01:44→17:20)
[2017-04-06] MEDS: VANCOMYCIN HCL 500 MG in DEXTROSE 5%-WATER 100 ML IV SCH (04:19)
[2017-04-06 04:41] LABS: ABSOLUTE BASOPHILS # (AUTO) 0.1 10^3/uL (0.0-0.2); ABSOLUTE EOSINOPHILS # (AUTO) 0.4 10^3/uL (0.0-0.6); ABSOLUTE LYMPHOCYTES (AUTO) 1.8 10^3/uL (0.5-4.7); ABSOLUTE MONOCYTES (AUTO) 0.7 10^3/uL (0.1-1.4); ABSOLUTE NEUT (AUTO) 5.3 10^3/uL (1.7-8.2); BASOPHILS % (AUTO) 1.4 % (0-2); HEMATOCRIT 30.2 % (36.0-47.0); HEMOGLOBIN 10.3 g/dL (12.0-15.5); HGB HCT DIFFERENCE 0.7; LYMPHOCYTES % (AUTO) 21.3 % (13-45); MEAN CORPUSCULAR HEMOGLOBIN 30.7 pg (27.0-33.4); MEAN CORPUSCULAR HGB CONC 34.2 g/dL (32.0-36.0); MEAN CORPUSCULAR VOLUME 90 fl (80-97); RED BLOOD COUNT 3.37 10^6/uL (3.72-5.28); RED CELL DISTRIBUTION WIDTH 14.2 % (11.5-14.0); SEGMENTED NEUTROPHILS % (AUTO) 63.3 % (42-78); WHITE BLOOD COUNT 8.3 10^3/uL (4.0-10.5)
[2017-04-06 04:49] LABS: PROTHROMBIN TIME 13.5 SEC (11.4-15.4)
[2017-04-06 04:50] LABS: PARTIAL THROMBOPLASTIN TIME 33.5 SEC (23.5-35.8)
[2017-04-06 04:54] LABS: ALANINE AMINOTRANSFERASE 40 U/L (9-52); ALBUMIN 2.8 g/dL (3.5-5.0); ALKALINE PHOSPHATASE 60 U/L (38-126); ANION GAP 8 (5-19); ASPARTATE AMINO TRANSFERASE 19 U/L (14-36); BILIRUBIN,DIRECT 0.4 mg/dL (0.0-0.4); BILIRUBIN,TOTAL 0.4 mg/dL (0.2-1.3); BLOOD UREA NITROGEN 6 mg/dL (7-20); CALCIUM 9.2 mg/dL (8.4-10.2); CARBON DIOXIDE 25 mmol/L (22-30); CHLORIDE 111 mmol/L (98-107); CREATININE RESULT 0.65 mg/dL (0.52-1.25); GLUCOSE 73 mg/dL (75-110); MAGNESIUM 1.4 mg/dL (1.6-2.3); POTASSIUM 3.5 mmol/L (3.6-5.0); TOTAL PROTEIN 5.3 g/dL (6.3-8.2)
[2017-04-06] MEDS: OXYCODONE HCL IR 5 MG TABLET NG SCH ×3 (05:45→21:48)
[2017-04-06] MEDS: CEFEPIME 2 GM/D5W RTU 2 GM/50 ML RTUPB IV SCH (05:45)
[2017-04-06 05:58] LABS: ARTERIAL BLOOD BASE EXCESS 1.3 mmol/L; ARTERIAL BLOOD O2 SATURATION 92.8 % (94-98)
--- NOTE | 2017-04-06 07:59 | RADIOLOGY REPORT (SQ) ---
EXAM DESCRIPTION: CHEST SINGLE VIEW COMPLETED DATE/TIME: 04/06/2017 6:55 am REASON FOR STUDY: respiratory failure COMPARISON: 04/05/2017. EXAM PARAMETERS: NUMBER OF VIEWS: One view. TECHNIQUE: Single frontal radiographic view of the chest acquired. RADIATION DOSE: NA LIMITATIONS: None. FINDINGS: LUNGS AND PLEURA: Mild emphysematous hyperinflation. Small right basilar basilar opacity -effusion. MEDIASTINUM AND HILAR STRUCTURES: No masses. Contour normal. HEART AND VASCULAR STRUCTURES: Heart normal in size. Normal vasculature. BONES: No acute findings. HARDWARE: Likely adequate NG tube obscured distally. Left internal jugular central line tip at the c avoatrial junction. OTHER: No other significant finding. IMPRESSION: Interval extubation. Otherwise, no significant interval change. TECHNICAL DOCUMENTATION: JOB ID: [id number] [email or web address] All Rights Reserved
[2017-04-06] MEDS: TOBRAMYCIN SULFATE NEB 40 MG/ML 30 ML NEB SCH ×2 (08:17→20:00)
[2017-04-06] MEDS: IPRATROPIUM/ALBUTEROL 0.5-2.5 MG/3 ML AMPUL NEB PRN (08:17)
[2017-04-06] MEDS: NORMAL SALINE 1000 ML 1,000 ML IV PRN ×2 (10:03→10:55)
[2017-04-06] MEDS: ENOXAPARIN SODIUM INJ 40 MG/0.4 ML DISP.SYRIN SUBCUT SCH (10:08)
[2017-04-06] MEDS: CLONAZEPAM 1 MG TABLET NG SCH ×2 (10:11→21:48)
--- NOTE | 2017-04-06 11:36 | PDOC PROGRESS REPORT ---
Subjective Progress Note for:: 04/06/17 Subjective:: She was seen in the unit, she was extubated yesterday, still requiring noninvasive positive pressure ventilation, nutrition still a challenge, she failed the swallow screen study, NG tube still in place, will be started to feed with Jevity, consultation will be requested for nutrition for guidance. Patient overall clinical condition is poor, we need to discuss CODE STATUS with family/advance care planning. Reason For Visit: DIRECT ADMIT-ACUTE ON CHRONIC RESPIRATORY ACIDOSIS Physical Exam Vital Signs: Temp Pulse Resp BP Pulse Ox 98.4 F 89 16 134/57 H 99 04/06/17 10:12 04/06/17 10:00 04/06/17 10:12 04/06/17 10:12 04/06/17 10:12 Intake & Output 04/05/17 04/06/17 04/07/17 06:59 06:59 06:59 Intake Total 3653 3135 Output Total 1850 4375 225 Balance 1803 -1240 -225 Weight 66.7 kg 65 kg General appearance: PRESENT: no acute distress Eye exam: PRESENT: PERRLA Respiratory exam: PRESENT: clear to auscultation sherry Cardiovascular exam: PRESENT: +S1, +S2 GI/Abdominal exam: PRESENT: soft Neurological exam: PRESENT: alert Results Laboratory Results: 04/06/17 04:29 04/06/17 04:29 04/05/17 04/06/17 04/06/17 17:15 04:29 04:29 WBC 8.3 RBC 3.37 L Hgb 10.3 L Hct 30.2 L MCV 90 MCH 30.7 MCHC 34.2 RDW 14.2 H Plt Count 144 L Seg Neutrophils % 63.3 Lymphocytes % 21.3 Monocytes % 9.0 Eosinophils % 5.0 Basophils % 1.4 Absolute Neutrophils 5.3 Absolute Lymphocytes 1.8 Absolute Monocytes 0.7 Absolute Eosinophils 0.4 Absolute Basophils 0.1 Carbonic Acid HCO3/H2CO3 Ratio ABG pH ABG pCO2 ABG pO2 ABG HCO3 ABG O2 Saturation ABG Base Excess FiO2 Sodium 144.0 Potassium 3.5 L Chloride 111 H Carbon Dioxide 25 Anion Gap 8 BUN 6 L Creatinine 0.68 0.65 Est GFR ( Amer) > 60 > 60 Est GFR (Non-Af Amer) > 60 > 60 Glucose 73 L Calcium 9.2 Magnesium 1.4 L Total Bilirubin 0.4 AST 19 ALT 40 Alkaline Phosphatase 60 Total Protein 5.3 L Albumin 2.8 L 04/06/17 05:40 WBC RBC Hgb Hct MCV MCH MCHC RDW Plt Count Seg Neutrophils % Lymphocytes % Monocytes % Eosinophils % Basophils % Absolute Neutrophils Absolute Lymphocytes Absolute Monocytes Absolute Eosinophils Absolute Basophils Carbonic Acid 1.41 H HCO3/H2CO3 Ratio 19:1 ABG pH 7.38 ABG pCO2 46.7 H ABG pO2 66.9 L ABG HCO3 26.8 H ABG O2 Saturation 92.8 L ABG Base Excess 1.3 FiO2 2L Sodium Potassium Chloride Carbon Dioxide Anion Gap BUN Creatinine Est GFR ( Amer) Est GFR (Non-Af Amer) Glucose Calcium Magnesium Total Bilirubin AST ALT Alkaline Phosphatase Total Protein Albumin 04/03/17 14:00 Catheterized Urine Urine Culture - Final NO GROWTH 2 DAYS 04/03/17 04/03/17 04/03/17 11:15 14:00 14:00 Creatine Kinase < 20 L CK-MB (CK-2) 0.98 Troponin I < 0.012 NT-Pro-B Natriuret Pep 220 04/03/17 04/03/17 04/04/17 20:30 20:30 02:55 Creatine Kinase < 20 L 21 L CK-MB (CK-2) 1.00 Troponin I < 0.012 NT-Pro-B Natriuret Pep 04/04/17 02:55 Creatine Kinase CK-MB (CK-2) 0.70 Troponin I < 0.012 NT-Pro-B Natriuret Pep Impressions: Head CT 04/03/17 11:39 IMPRESSION: NO ACUTE INTRACRANIAL IMAGING FINDINGS. EVIDENCE OF ACUTE STROKE: NO. Chest X-Ray 04/06/17 06:00 IMPRESSION: Interval extubation. Otherwise, no significant interval change. Assessment & Plan - Diagnosis (1) Acute hypercapnic respiratory failure Is this a current diagnosis for this admission?: Yes (2) Hypotension Qualifiers: Hypotension type: unspecified hypotension type Qualified Code(s): I95.9 - Hypotension, unspecified Is this a current diagnosis for this admission?: Yes (3) COPD (chronic obstructive pulmonary disease) Is this a current diagnosis for this admission?: Yes (4) Acute and chronic respiratory failure ([id number]) Qualifiers: Respiratory failure complication: hypercapnia Qualified Code(s): J96.22 - Acute and chronic respiratory failure with hypercapnia Is this a current diagnosis for this admission?: Yes (5) Acute and chronic respiratory failure with hypercapnia Is this a current diagnosis for this admission?: Yes (6) Pneumonia due to enterobacter aerogenes Is this a current diagnosis for this admission?: Yes Plan: She will continue IV Levaquin, the Enterobacter aerogene is sensitive to Levaquin and cefepime, the cefepime to be discontinued to de-escalate antibiotic usage (7) Oropharyngeal dysphagia Is this a current diagnosis for this admission?: Yes Plan: She has oropharyngeal dysphagia, we start nutrition via tube feed
[2017-04-06] MEDS: POTASSI CL 20 MEQ/50 ML RIDER 20 MEQ/50 ML RTUPB IV SCH ×2 (13:06→14:19)
[2017-04-06] MEDS: LEVOFLOXACIN 750 MG/D5W RTU 750 MG/150 ML RTUPB IV SCH (14:19)
--- NOTE | 2017-04-06 14:52 | PDOC PROGRESS REPORT ---
Subjective Progress Note for:: 04/06/17 Subjective:: 24hrs s//p extubation stable Reason For Visit: DIRECT ADMIT-ACUTE ON CHRONIC RESPIRATORY ACIDOSIS Physical Exam Vital Signs: Temp Pulse Resp BP Pulse Ox 99.3 F 84 20 148/54 H 100 04/06/17 14:12 04/06/17 14:00 04/06/17 14:12 04/06/17 14:12 04/06/17 14:12 Intake & Output 04/05/17 04/06/17 04/07/17 06:59 06:59 06:59 Intake Total 3653 3135 Output Total 1850 4375 675 Balance 1803 -1240 -675 Weight 66.7 kg 65 kg General appearance: PRESENT: no acute distress, cooperative, disheveled, well- developed, well-nourished Head exam: PRESENT: atraumatic, normocephalic Eye exam: PRESENT: conjunctiva pale, EOMI. ABSENT: conjunctival injection, conjunctiva pink, nystagmus, periorbital swelling, scleral icterus Mouth exam: PRESENT: dry mucosa, neck supple, tongue midline Neck exam: ABSENT: carotid bruit, JVD, lymphadenopathy, thyromegaly, tracheal deviation, tracheostomy Respiratory exam: PRESENT: decreased breath sounds, prolonged expiratory phas, rhonchi, symmetrical, unlabored, wheezes. ABSENT: accessory muscle use, chest wall tenderness, clear to auscultation sherry, crackles, rales, retraction, stridor , tachypnea Cardiovascular exam: PRESENT: RRR, +S1, +S2. ABSENT: rubs Pulses: PRESENT: normal radial pulses GI/Abdominal exam: PRESENT: normal bowel sounds, soft. ABSENT: distended, guarding, mass, organolmegaly, rebound, tenderness Extremities exam: PRESENT: clubbing, joint swelling Musculoskeletal exam: ABSENT: ambulatory, deformity, dislocation Skin exam: PRESENT: dry, warm Results Laboratory Results: 04/06/17 04:29 04/06/17 04:29 04/05/17 04/06/17 04/06/17 17:15 04:29 04:29 WBC 8.3 RBC 3.37 L Hgb 10.3 L Hct 30.2 L MCV 90 MCH 30.7 MCHC 34.2 RDW 14.2 H Plt Count 144 L Seg Neutrophils % 63.3 Lymphocytes % 21.3 Monocytes % 9.0 Eosinophils % 5.0 Basophils % 1.4 Absolute Neutrophils 5.3 Absolute Lymphocytes 1.8 Absolute Monocytes 0.7 Absolute Eosinophils 0.4 Absolute Basophils 0.1 Carbonic Acid HCO3/H2CO3 Ratio ABG pH ABG pCO2 ABG pO2 ABG HCO3 ABG O2 Saturation ABG Base Excess FiO2 Sodium 144.0 Potassium 3.5 L Chloride 111 H Carbon Dioxide 25 Anion Gap 8 BUN 6 L Creatinine 0.68 0.65 Est GFR ( Amer) > 60 > 60 Est GFR (Non-Af Amer) > 60 > 60 Glucose 73 L Calcium 9.2 Magnesium 1.4 L Total Bilirubin 0.4 AST 19 ALT 40 Alkaline Phosphatase 60 Total Protein 5.3 L Albumin 2.8 L 04/06/17 05:40 WBC RBC Hgb Hct MCV MCH MCHC RDW Plt Count Seg Neutrophils % Lymphocytes % Monocytes % Eosinophils % Basophils % Absolute Neutrophils Absolute Lymphocytes Absolute Monocytes Absolute Eosinophils Absolute Basophils Carbonic Acid 1.41 H HCO3/H2CO3 Ratio 19:1 ABG pH 7.38 ABG pCO2 46.7 H ABG pO2 66.9 L ABG HCO3 26.8 H ABG O2 Saturation 92.8 L ABG Base Excess 1.3 FiO2 2L Sodium Potassium Chloride Carbon Dioxide Anion Gap BUN Creatinine Est GFR ( Amer) Est GFR (Non-Af Amer) Glucose Calcium Magnesium Total Bilirubin AST ALT Alkaline Phosphatase Total Protein Albumin 04/03/17 04/03/17 04/03/17 11:15 14:00 14:00 Creatine Kinase < 20 L CK-MB (CK-2) 0.98 Troponin I < 0.012 NT-Pro-B Natriuret Pep 220 04/03/17 04/03/17 04/04/17 20:30 20:30 02:55 Creatine Kinase < 20 L 21 L CK-MB (CK-2) 1.00 Troponin I < 0.012 NT-Pro-B Natriuret Pep 04/04/17 02:55 Creatine Kinase CK-MB (CK-2) 0.70 Troponin I < 0.012 NT-Pro-B Natriuret Pep Impressions: Head CT 04/03/17 11:39 IMPRESSION: NO ACUTE INTRACRANIAL IMAGING FINDINGS. EVIDENCE OF ACUTE STROKE: NO. Chest X-Ray 04/06/17 06:00 IMPRESSION: Interval extubation. Otherwise, no significant interval change. Assessment & Plan - Diagnosis (1) Acute and chronic respiratory failure with hypercapnia Is this a current diagnosis for this admission?: No (2) Acute exacerbation of chronic obstructive airways disease Is this a current diagnosis for this admission?: No (3) COPD (chronic obstructive pulmonary disease) Qualifiers: COPD type: emphysema Emphysema type: centrilobular Qualified Code(s): J43.2 - Centrilobular emphysema Is this a current diagnosis for this admission?: Yes Plan: continue current therapy (4) Chronic respiratory failure with hypoxia and hypercapnia Is this a current diagnosis for this admission?: Yes Plan: trilogy and supp O2 (5) Chronic respiratory failure with hypoxia, on home O2 therapy Is this a current diagnosis for this admission?: Yes - Time Total Critical Time (Minutes): 30
--- NOTE | 2017-04-06 15:01 | PDOC PROGRESS REPORT ---
Subjective Progress Note for:: 04/05/17 Subjective:: intubated,arousable Reason For Visit: DIRECT ADMIT-ACUTE ON CHRONIC RESPIRATORY ACIDOSIS Physical Exam Vital Signs: Temp Pulse Resp BP Pulse Ox 98.1 F 79 18 140/50 H 98 04/05/17 08:00 04/05/17 08:00 04/05/17 08:00 04/05/17 08:00 04/05/17 08:00 Intake & Output 04/04/17 04/05/17 04/06/17 06:59 06:59 06:59 Intake Total 1619 3653 Output Total 1780 1850 225 Balance -161 1803 -225 Weight 64.2 kg 66.7 kg General appearance: PRESENT: no acute distress, disheveled, obese, well- developed. ABSENT: mild distress, severe distress Head exam: PRESENT: atraumatic, normocephalic Eye exam: PRESENT: conjunctiva pale. ABSENT: conjunctival injection, conjunctiva pink Mouth exam: PRESENT: dry mucosa, neck supple, tongue midline. ABSENT: laceration Neck exam: ABSENT: carotid bruit, JVD, lymphadenopathy, thyromegaly, tracheal deviation, tracheostomy Respiratory exam: PRESENT: decreased breath sounds, prolonged expiratory phas, rhonchi, symmetrical, unlabored, wheezes. ABSENT: accessory muscle use, chest wall tenderness, clear to auscultation sherry, rales, retraction, stridor, tachypnea Cardiovascular exam: PRESENT: RRR, +S1, +S2. ABSENT: rubs Pulses: PRESENT: normal radial pulses GI/Abdominal exam: PRESENT: normal bowel sounds, soft. ABSENT: distended, guarding, mass, organolmegaly, rebound, tenderness Gentrourinary exam: PRESENT: indwelling catheter Extremities exam: ABSENT: clubbing, joint swelling Musculoskeletal exam: ABSENT: deformity, dislocation Neurological exam: PRESENT: awake Skin exam: PRESENT: dry, warm Results Laboratory Results: 04/05/17 04:29 04/05/17 04:29 04/05/17 04/05/17 04/05/17 04:29 04:29 08:15 WBC 10.4 RBC 3.34 L Hgb 10.2 L Hct 29.8 L MCV 89 MCH 30.6 MCHC 34.3 RDW 13.7 Plt Count 177 Seg Neutrophils % 73.6 Lymphocytes % 15.2 Monocytes % 8.6 Eosinophils % 1.6 Basophils % 1.0 Absolute Neutrophils 7.7 Absolute Lymphocytes 1.6 Absolute Monocytes 0.9 Absolute Eosinophils 0.2 Absolute Basophils 0.1 Carbonic Acid 1.14 HCO3/H2CO3 Ratio 20:1 ABG pH 7.40 ABG pCO2 37.8 ABG pO2 73.4 L ABG HCO3 22.9 ABG O2 Saturation 94.9 ABG Base Excess -1.6 FiO2 25% Sodium 143.7 Potassium 4.2 Chloride 110 H Carbon Dioxide 25 Anion Gap 9 BUN 7 Creatinine 0.76 Est GFR ( Amer) > 60 Est GFR (Non-Af Amer) > 60 Glucose 79 Calcium 9.0 Total Bilirubin 0.3 AST 31 ALT 36 Alkaline Phosphatase 64 Total Protein 5.9 L Albumin 3.3 L 04/03/17 04/03/17 04/03/17 11:15 14:00 14:00 Creatine Kinase < 20 L CK-MB (CK-2) 0.98 Troponin I < 0.012 NT-Pro-B Natriuret Pep 220 04/03/17 04/03/17 04/04/17 20:30 20:30 02:55 Creatine Kinase < 20 L 21 L CK-MB (CK-2) 1.00 Troponin I < 0.012 NT-Pro-B Natriuret Pep 04/04/17 02:55 Creatine Kinase CK-MB (CK-2) 0.70 Troponin I < 0.012 NT-Pro-B Natriuret Pep Impressions: Head CT 04/03/17 11:39 IMPRESSION: NO ACUTE INTRACRANIAL IMAGING FINDINGS. EVIDENCE OF ACUTE STROKE: NO. Chest X-Ray 04/05/17 06:00 IMPRESSION: No acute radiographic finding in the chest. Emphysema. Support devices in expected locations. Assessment & Plan - Diagnosis (1) Acute and chronic respiratory failure with hypercapnia Is this a current diagnosis for this admission?: Yes Plan: extubate (2) Acute exacerbation of chronic obstructive airways disease Is this a current diagnosis for this admission?: Yes Plan: extubate (3) COPD (chronic obstructive pulmonary disease) Qualifiers: COPD type: emphysema Emphysema type: centrilobular Qualified Code(s): J43.2 - Centrilobular emphysema Is this a current diagnosis for this admission?: Yes Plan: continue current therapy - Time Total Critical Time (Minutes): 55
[2017-04-06] MEDS: VANCOMYCIN HCL 750 MG in DEXTROSE 5%-WATER 250 ML IV SCH (16:08)
[2017-04-07] MEDS: NORMAL SALINE 1000 ML 1,000 ML IV PRN (02:23)
[2017-04-07] MEDS: VANCOMYCIN HCL 750 MG in DEXTROSE 5%-WATER 250 ML IV SCH ×2 (03:33→16:30)
[2017-04-07] MEDS: OXYCODONE-ACETAMINOPHEN 5-325 MG TABLET NG PRN (04:36)
[2017-04-07] MEDS: OXYCODONE HCL IR 5 MG TABLET NG PRN (04:37)
[2017-04-07] MEDS: OXYCODONE HCL IR 5 MG TABLET NG SCH ×3 (06:22→21:51)
[2017-04-07] MEDS: IPRATROPIUM/ALBUTEROL 0.5-2.5 MG/3 ML AMPUL NEB PRN (08:44)
[2017-04-07] MEDS: TOBRAMYCIN SULFATE NEB 40 MG/ML 30 ML NEB SCH ×2 (08:44→21:23)
[2017-04-07] MEDS: ENOXAPARIN SODIUM INJ 40 MG/0.4 ML DISP.SYRIN SUBCUT SCH (09:14)
[2017-04-07] MEDS: CLONAZEPAM 1 MG TABLET NG SCH ×2 (09:15→21:50)
--- NOTE | 2017-04-07 13:29 | PDOC PROGRESS REPORT ---
Subjective Progress Note for:: 04/07/17 Subjective:: Lethargic,arousable Reason For Visit: DIRECT ADMIT-ACUTE ON CHRONIC RESPIRATORY ACIDOSIS Physical Exam Vital Signs: Temp Pulse Resp BP Pulse Ox 97.9 F 87 13 138/46 H 96 04/07/17 08:00 04/07/17 08:00 04/07/17 08:00 04/07/17 08:00 04/07/17 03:41 Intake & Output 04/06/17 04/07/17 04/08/17 06:59 06:59 06:59 Intake Total 3135 2267 Output Total 4375 3100 Balance -1240 -183 Weight 65 kg 64.3 kg General appearance: PRESENT: cooperative, disheveled, obese, well-developed, well-nourished. ABSENT: no acute distress, mild distress, morbidly obese, severe distress Head exam: PRESENT: atraumatic, normocephalic Eye exam: PRESENT: conjunctiva pale, EOMI. ABSENT: conjunctival injection, conjunctiva pink, nystagmus, periorbital swelling, scleral icterus Mouth exam: PRESENT: dry mucosa, neck supple, tongue midline Neck exam: ABSENT: carotid bruit, JVD, lymphadenopathy, thyromegaly, tracheal deviation, tracheostomy Respiratory exam: PRESENT: decreased breath sounds, prolonged expiratory phas, rhonchi, symmetrical, unlabored, wheezes. ABSENT: accessory muscle use, chest wall tenderness, clear to auscultation sherry, crackles, rales, retraction, stridor , tachypnea Cardiovascular exam: PRESENT: RRR, +S1, +S2. ABSENT: irregular rhythm, rubs Pulses: PRESENT: normal radial pulses GI/Abdominal exam: PRESENT: normal bowel sounds, soft. ABSENT: distended, guarding, mass, organolmegaly, rebound, tenderness Extremities exam: ABSENT: clubbing, joint swelling Musculoskeletal exam: ABSENT: deformity, dislocation, tenderness Neurological exam: PRESENT: awake Psychiatric exam: PRESENT: flat affect Skin exam: PRESENT: dry, warm Results Laboratory Results: 04/06/17 04:29 04/06/17 04:29 04/03/17 16:12 Tracheal Aspirate Gram Stain - Final 04/03/17 16:12 Tracheal Aspirate Sputum Culture - Final Enterobacter Aerogenes Klebsiella Oxytoca Reduced Normal Staci 04/03/17 04/03/17 04/03/17 11:15 14:00 14:00 Creatine Kinase < 20 L CK-MB (CK-2) 0.98 Troponin I < 0.012 NT-Pro-B Natriuret Pep 220 04/03/17 04/03/17 04/04/17 20:30 20:30 02:55 Creatine Kinase < 20 L 21 L CK-MB (CK-2) 1.00 Troponin I < 0.012 NT-Pro-B Natriuret Pep 04/04/17 02:55 Creatine Kinase CK-MB (CK-2) 0.70 Troponin I < 0.012 NT-Pro-B Natriuret Pep Impressions: Head CT 04/03/17 11:39 IMPRESSION: NO ACUTE INTRACRANIAL IMAGING FINDINGS. EVIDENCE OF ACUTE STROKE: NO. Chest X-Ray 04/06/17 06:00 IMPRESSION: Interval extubation. Otherwise, no significant interval change. Assessment & Plan - Diagnosis (1) Acute and chronic respiratory failure with hypercapnia Is this a current diagnosis for this admission?: No (2) Acute exacerbation of chronic obstructive airways disease Is this a current diagnosis for this admission?: No (3) COPD (chronic obstructive pulmonary disease) Qualifiers: COPD type: emphysema Emphysema type: centrilobular Qualified Code(s): J43.2 - Centrilobular emphysema Is this a current diagnosis for this admission?: Yes Plan: continue current therapy
[2017-04-07] MEDS: LEVOFLOXACIN 750 MG/D5W RTU 750 MG/150 ML RTUPB IV SCH (14:09)
[2017-04-07 15:38] LABS: ABSOLUTE BASOPHILS # (AUTO) 0.1 10^3/uL (0.0-0.2); ABSOLUTE EOSINOPHILS # (AUTO) 0.6 10^3/uL (0.0-0.6); ABSOLUTE LYMPHOCYTES (AUTO) 2.3 10^3/uL (0.5-4.7); ABSOLUTE MONOCYTES (AUTO) 0.7 10^3/uL (0.1-1.4); ABSOLUTE NEUT (AUTO) 4.4 10^3/uL (1.7-8.2); BASOPHILS % (AUTO) 1.3 % (0-2); EOSINOPHILS % (AUTO) 7.6 % (0-6); HEMATOCRIT 30.1 % (36.0-47.0); HEMOGLOBIN 10.1 g/dL (12.0-15.5); HGB HCT DIFFERENCE 0.2; LYMPHOCYTES % (AUTO) 28.3 % (13-45); MEAN CORPUSCULAR HEMOGLOBIN 29.9 pg (27.0-33.4); MEAN CORPUSCULAR HGB CONC 33.7 g/dL (32.0-36.0); MEAN CORPUSCULAR VOLUME 89 fl (80-97); MONOCYTES % (AUTO) 8.3 % (3-13); RED BLOOD COUNT 3.38 10^6/uL (3.72-5.28); RED CELL DISTRIBUTION WIDTH 13.8 % (11.5-14.0); SEGMENTED NEUTROPHILS % (AUTO) 54.5 % (42-78)
[2017-04-07 15:48] LABS: ARTERIAL BLOOD BASE EXCESS 0.7 mmol/L; ARTERIAL BLOOD O2 SATURATION 58.6 % (94-98)
[2017-04-07 15:50] LABS: ANION GAP 9 (5-19); BLOOD UREA NITROGEN 3 mg/dL (7-20); CALCIUM 9.3 mg/dL (8.4-10.2); CARBON DIOXIDE 28 mmol/L (22-30); CHLORIDE 106 mmol/L (98-107); CREATININE RESULT 0.61 mg/dL (0.52-1.25); GLUCOSE 86 mg/dL (75-110); MAGNESIUM 1.3 mg/dL (1.6-2.3); POTASSIUM 4.2 mmol/L (3.6-5.0); SODIUM 142.5 mmol/L (137-145)
[2017-04-07 17:27] LABS: ARTERIAL BLOOD BASE EXCESS 0.9 mmol/L; ARTERIAL BLOOD O2 SATURATION 98.9 % (94-98)
--- NOTE | 2017-04-07 20:26 | PDOC PROGRESS REPORT ---
Subjective Progress Note for:: 04/07/17 Subjective:: Patient continues to struggle with CO2 retention, she became confused today, ABG was done, it showed respiratory acidosis. I spoke to patient spouse today and the family has come to the realization that this is end-stage COPD on she will be unable to maintain normal CO2 without the assistance of a positive pressure ventilation. They want her to be a DNR status. She was seen by speech, and the recommendation is that she can eat mechanical soft diet. Reason For Visit: DIRECT ADMIT-ACUTE ON CHRONIC RESPIRATORY ACIDOSIS Physical Exam Vital Signs: Temp Pulse Resp BP Pulse Ox 97.7 F 70 12 118/48 L 100 04/07/17 19:00 04/07/17 19:00 04/07/17 19:00 04/07/17 19:00 04/07/17 19:00 Intake & Output 04/06/17 04/07/17 04/08/17 06:59 06:59 06:59 Intake Total 3135 2267 840 Output Total 4375 6840 1175 Balance -1240 -183 -335 Weight 65 kg 64.3 kg General appearance: PRESENT: mild distress Eye exam: PRESENT: PERRLA Respiratory exam: PRESENT: clear to auscultation sherry Cardiovascular exam: PRESENT: +S1, +S2 GI/Abdominal exam: PRESENT: soft Neurological exam: PRESENT: alert Results Laboratory Results: 04/07/17 15:25 04/07/17 15:25 04/07/17 04/07/17 04/07/17 15:25 15:25 15:45 WBC 8.0 RBC 3.38 L Hgb 10.1 L Hct 30.1 L MCV 89 MCH 29.9 MCHC 33.7 RDW 13.8 Plt Count 193 Seg Neutrophils % 54.5 Lymphocytes % 28.3 Monocytes % 8.3 Eosinophils % 7.6 H Basophils % 1.3 Absolute Neutrophils 4.4 Absolute Lymphocytes 2.3 Absolute Monocytes 0.7 Absolute Eosinophils 0.6 Absolute Basophils 0.1 Carbonic Acid 2.11 H HCO3/H2CO3 Ratio 13:1 ABG pH 7.24 L ABG pCO2 70.1 H* ABG pO2 36.6 L* ABG HCO3 29.4 H ABG O2 Saturation 58.6 L ABG Base Excess 0.7 FiO2 2L Sodium 142.5 Potassium 4.2 Chloride 106 Carbon Dioxide 28 Anion Gap 9 BUN 3 L Creatinine 0.61 Est GFR ( Amer) > 60 Est GFR (Non-Af Amer) > 60 Glucose 86 Calcium 9.3 Magnesium 1.3 L 04/07/17 17:00 WBC RBC Hgb Hct MCV MCH MCHC RDW Plt Count Seg Neutrophils % Lymphocytes % Monocytes % Eosinophils % Basophils % Absolute Neutrophils Absolute Lymphocytes Absolute Monocytes Absolute Eosinophils Absolute Basophils Carbonic Acid 1.72 H HCO3/H2CO3 Ratio 16:1 ABG pH 7.31 L ABG pCO2 57.3 H ABG pO2 164.4 H ABG HCO3 28.0 H ABG O2 Saturation 98.9 H ABG Base Excess 0.9 FiO2 45% Sodium Potassium Chloride Carbon Dioxide Anion Gap BUN Creatinine Est GFR ( Amer) Est GFR (Non-Af Amer) Glucose Calcium Magnesium 04/03/17 16:12 Tracheal Aspirate Gram Stain - Final 04/03/17 16:12 Tracheal Aspirate Sputum Culture - Final Enterobacter Aerogenes Klebsiella Oxytoca Reduced Normal Staci 04/03/17 04/03/17 04/03/17 11:15 14:00 14:00 Creatine Kinase < 20 L CK-MB (CK-2) 0.98 Troponin I < 0.012 NT-Pro-B Natriuret Pep 220 04/03/17 04/03/17 04/04/17 20:30 20:30 02:55 Creatine Kinase < 20 L 21 L CK-MB (CK-2) 1.00 Troponin I < 0.012 NT-Pro-B Natriuret Pep 04/04/17 02:55 Creatine Kinase CK-MB (CK-2) 0.70 Troponin I < 0.012 NT-Pro-B Natriuret Pep Impressions: Head CT 04/03/17 11:39 IMPRESSION: NO ACUTE INTRACRANIAL IMAGING FINDINGS. EVIDENCE OF ACUTE STROKE: NO. Chest X-Ray 04/06/17 06:00 IMPRESSION: Interval extubation. Otherwise, no significant interval change. Assessment & Plan - Diagnosis (1) Acute hypercapnic respiratory failure Is this a current diagnosis for this admission?: Yes (2) Hypotension Qualifiers: Hypotension type: unspecified hypotension type Qualified Code(s): I95.9 - Hypotension, unspecified Is this a current diagnosis for this admission?: Yes (3) COPD (chronic obstructive pulmonary disease) Is this a current diagnosis for this admission?: Yes (4) Acute and chronic respiratory failure ([id number]) Qualifiers: Respiratory failure complication: hypercapnia Qualified Code(s): J96.22 - Acute and chronic respiratory failure with hypercapnia Is this a current diagnosis for this admission?: Yes (5) Acute and chronic respiratory failure with hypercapnia Is this a current diagnosis for this admission?: Yes (6) Pneumonia due to enterobacter aerogenes Is this a current diagnosis for this admission?: Yes (7) Oropharyngeal dysphagia Is this a current diagnosis for this admission?: Yes (8) DNR (do not resuscitate) discussion Is this a current diagnosis for this admission?: Yes Plan: I had a long discussion with patient spouse, regarding advanced care planning. Patient does not want to be reintubated again, she wants to be a DNR status. (9) DNR (do not resuscitate) Is this a current diagnosis for this admission?: Yes - Inpatient Certification Based on my medical assessment, after consideration of the patient's comorbidities, presenting symptoms, or acuity I expect that the services needed warrant INPATIENT care.: Yes I certify that my determination is in accordance with my understanding of Medicare's requirements for reasonable and necessary INPATIENT services [42 CFR 412.3e].: Yes
[2017-04-08] MEDS: NORMAL SALINE 1000 ML 1,000 ML IV PRN (02:11)
[2017-04-08] MEDS: VANCOMYCIN HCL 750 MG in DEXTROSE 5%-WATER 250 ML IV SCH (03:35)
[2017-04-08] MEDS: OXYCODONE-ACETAMINOPHEN 5-325 MG TABLET NG PRN (03:38)
[2017-04-08 04:00] LABS: ABSOLUTE BASOPHILS # (AUTO) 0.1 10^3/uL (0.0-0.2); ABSOLUTE EOSINOPHILS # (AUTO) 0.5 10^3/uL (0.0-0.6); ABSOLUTE LYMPHOCYTES (AUTO) 1.7 10^3/uL (0.5-4.7); ABSOLUTE MONOCYTES (AUTO) 0.6 10^3/uL (0.1-1.4); ABSOLUTE NEUT (AUTO) 3.5 10^3/uL (1.7-8.2); BASOPHILS % (AUTO) 1.4 % (0-2); EOSINOPHILS % (AUTO) 7.8 % (0-6); HEMATOCRIT 28.2 % (36.0-47.0); HEMOGLOBIN 9.5 g/dL (12.0-15.5); HGB HCT DIFFERENCE 0.3; MEAN CORPUSCULAR HEMOGLOBIN 29.5 pg (27.0-33.4); MEAN CORPUSCULAR HGB CONC 33.5 g/dL (32.0-36.0); MEAN CORPUSCULAR VOLUME 88 fl (80-97); MONOCYTES % (AUTO) 8.9 % (3-13); RED CELL DISTRIBUTION WIDTH 13.8 % (11.5-14.0); SEGMENTED NEUTROPHILS % (AUTO) 54.9 % (42-78); WHITE BLOOD COUNT 6.4 10^3/uL (4.0-10.5)
[2017-04-08 04:19] LABS: ANION GAP 8 (5-19); BLOOD UREA NITROGEN 3 mg/dL (7-20); CALCIUM 9.4 mg/dL (8.4-10.2); CARBON DIOXIDE 30 mmol/L (22-30); CHLORIDE 106 mmol/L (98-107); CREATININE RESULT 0.61 mg/dL (0.52-1.25); GLUCOSE 97 mg/dL (75-110); SODIUM 143.6 mmol/L (137-145)
[2017-04-08 04:37] LABS: MAGNESIUM 1.2 mg/dL (1.6-2.3)
[2017-04-08] MEDS: OXYCODONE HCL IR 5 MG TABLET NG SCH (05:49)
[2017-04-08 06:15] LABS: ARTERIAL BLOOD BASE EXCESS 3.4 mmol/L; ARTERIAL BLOOD O2 SATURATION 96.9 % (94-98)
[2017-04-08] MEDS ORDERED: MAGNESIUM SULFATE/D5W 1 GM/100 ML RTUPB IV ONE (07:00)
[2017-04-08] MEDS: TOBRAMYCIN SULFATE NEB 40 MG/ML 30 ML NEB SCH (08:38)
[2017-04-08] MEDS: IPRATROPIUM/ALBUTEROL 0.5-2.5 MG/3 ML AMPUL NEB PRN (08:38)
--- NOTE | 2017-04-08 08:39 | RADIOLOGY REPORT (SQ) ---
EXAM DESCRIPTION: CHEST SINGLE VIEW COMPLETED DATE/TIME: 04/08/2017 7:05 am REASON FOR STUDY: chronic resp failure COMPARISON: 04/06/2017. NUMBER OF VIEWS: One view. TECHNIQUE: Single frontal radiographic view of the chest acquired. LIMITATIONS: None. FINDINGS: LUNGS AND PLEURA: Focal scarring in the right lung base. No lobar infiltrates, masses or pneumothorax. No pleural effusion. Attenuated blood vessels and flattened yohannes-diaphragms. MEDIASTINUM AND HILAR STRUCTURES: No masses. Contour normal. HEART AND VASCULAR STRUCTURES: Heart normal in size. Normal vasculature. BONES: No acute findings. HARDWARE: Nasogastric tube and vascular access port. OTHER: No other significant finding. IMPRESSION: COPD. APPARENT SCARRING IN THE RIGHT LUNG BASE. NO CHANGE. TECHNICAL DOCUMENTATION: JOB ID: [id number] [employer]- All Rights Reserved
[2017-04-08] MEDS ORDERED: LEVALBUTEROL HCL NEB 1.25 MG/3 ML AMPUL NEB PRN (08:49)
[2017-04-08] MEDS ORDERED: CLONAZEPAM 1 MG TABLET NG SCH (10:00)
[2017-04-08 10:05] VITALS: BP 94/71
[2017-04-08] MEDS: ENOXAPARIN SODIUM INJ 40 MG/0.4 ML DISP.SYRIN SUBCUT SCH (11:16)
--- NOTE | 2017-04-08 13:24 | PDOC PROGRESS REPORT ---
Subjective Progress Note for:: 04/08/17 Subjective:: A little less lethargic,Remains arousable Reason For Visit: DIRECT ADMIT-ACUTE ON CHRONIC RESPIRATORY ACIDOSIS Physical Exam Vital Signs: Temp Pulse Resp BP Pulse Ox 98.6 F 87 20 120/55 L 100 04/08/17 08:00 04/08/17 08:00 04/08/17 08:00 04/08/17 08:00 04/08/17 08:00 Intake & Output 04/07/17 04/08/17 04/09/17 06:59 06:59 06:59 Intake Total 2267 840 Output Total 2450 1925 420 Balance -183 -1085 -420 Weight 64.3 kg 66.5 kg General appearance: PRESENT: no acute distress, cooperative, disheveled, obese, well-developed, well-nourished. ABSENT: mild distress, morbidly obese, severe distress, thin Head exam: PRESENT: atraumatic, normocephalic Eye exam: PRESENT: conjunctiva pale, EOMI. ABSENT: conjunctival injection, conjunctiva pink, nystagmus, periorbital swelling, scleral icterus Mouth exam: PRESENT: dry mucosa, neck supple, tongue midline. ABSENT: laceration, moist Neck exam: ABSENT: carotid bruit, JVD, lymphadenopathy, thyromegaly, tracheal deviation, tracheostomy Respiratory exam: PRESENT: decreased breath sounds, prolonged expiratory phas, rhonchi, symmetrical, unlabored, wheezes. ABSENT: accessory muscle use, chest wall tenderness, clear to auscultation sherry, crackles, rales, retraction, stridor , tachypnea Cardiovascular exam: PRESENT: RRR, +S1, +S2. ABSENT: rubs Pulses: PRESENT: normal radial pulses GI/Abdominal exam: PRESENT: normal bowel sounds, soft. ABSENT: distended, guarding, mass, organolmegaly, rebound, tenderness Extremities exam: ABSENT: calf tenderness, clubbing, joint swelling Musculoskeletal exam: ABSENT: deformity, dislocation, tenderness Neurological exam: PRESENT: awake Skin exam: PRESENT: dry, warm Results Laboratory Results: 04/08/17 03:46 04/08/17 03:46 04/07/17 04/07/17 04/07/17 15:25 15:25 15:45 WBC 8.0 RBC 3.38 L Hgb 10.1 L Hct 30.1 L MCV 89 MCH 29.9 MCHC 33.7 RDW 13.8 Plt Count 193 Seg Neutrophils % 54.5 Lymphocytes % 28.3 Monocytes % 8.3 Eosinophils % 7.6 H Basophils % 1.3 Absolute Neutrophils 4.4 Absolute Lymphocytes 2.3 Absolute Monocytes 0.7 Absolute Eosinophils 0.6 Absolute Basophils 0.1 Carbonic Acid 2.11 H HCO3/H2CO3 Ratio 13:1 ABG pH 7.24 L ABG pCO2 70.1 H* ABG pO2 36.6 L* ABG HCO3 29.4 H ABG O2 Saturation 58.6 L ABG Base Excess 0.7 FiO2 2L Sodium 142.5 Potassium 4.2 Chloride 106 Carbon Dioxide 28 Anion Gap 9 BUN 3 L Creatinine 0.61 Est GFR ( Amer) > 60 Est GFR (Non-Af Amer) > 60 Glucose 86 Calcium 9.3 Magnesium 1.3 L 04/07/17 04/08/17 04/08/17 17:00 03:46 03:46 WBC 6.4 RBC 3.20 L Hgb 9.5 L Hct 28.2 L MCV 88 MCH 29.5 MCHC 33.5 RDW 13.8 Plt Count 173 Seg Neutrophils % 54.9 Lymphocytes % 27.0 Monocytes % 8.9 Eosinophils % 7.8 H Basophils % 1.4 Absolute Neutrophils 3.5 Absolute Lymphocytes 1.7 Absolute Monocytes 0.6 Absolute Eosinophils 0.5 Absolute Basophils 0.1 Carbonic Acid 1.72 H HCO3/H2CO3 Ratio 16:1 ABG pH 7.31 L ABG pCO2 57.3 H ABG pO2 164.4 H ABG HCO3 28.0 H ABG O2 Saturation 98.9 H ABG Base Excess 0.9 FiO2 45% Sodium 143.6 Potassium 4.0 Chloride 106 Carbon Dioxide 30 Anion Gap 8 BUN 3 L Creatinine 0.61 Est GFR ( Amer) > 60 Est GFR (Non-Af Amer) > 60 Glucose 97 Calcium 9.4 Magnesium 1.2 L* 04/08/17 06:05 WBC RBC Hgb Hct MCV MCH MCHC RDW Plt Count Seg Neutrophils % Lymphocytes % Monocytes % Eosinophils % Basophils % Absolute Neutrophils Absolute Lymphocytes Absolute Monocytes Absolute Eosinophils Absolute Basophils Carbonic Acid 1.70 H HCO3/H2CO3 Ratio 17:1 ABG pH 7.34 L ABG pCO2 56.5 H ABG pO2 96.8 ABG HCO3 29.9 H ABG O2 Saturation 96.9 ABG Base Excess 3.4 FiO2 35% Sodium Potassium Chloride Carbon Dioxide Anion Gap BUN Creatinine Est GFR ( Amer) Est GFR (Non-Af Amer) Glucose Calcium Magnesium 04/03/17 04/03/17 04/03/17 11:15 14:00 14:00 Creatine Kinase < 20 L CK-MB (CK-2) 0.98 Troponin I < 0.012 NT-Pro-B Natriuret Pep 220 04/03/17 04/03/17 04/04/17 20:30 20:30 02:55 Creatine Kinase < 20 L 21 L CK-MB (CK-2) 1.00 Troponin I < 0.012 NT-Pro-B Natriuret Pep 04/04/17 02:55 Creatine Kinase CK-MB (CK-2) 0.70 Troponin I < 0.012 NT-Pro-B Natriuret Pep Impressions: Head CT 04/03/17 11:39 IMPRESSION: NO ACUTE INTRACRANIAL IMAGING FINDINGS. EVIDENCE OF ACUTE STROKE: NO. Chest X-Ray 04/08/17 06:00 IMPRESSION: COPD. APPARENT SCARRING IN THE RIGHT LUNG BASE. NO CHANGE. Assessment & Plan - Diagnosis (1) Acute and chronic respiratory failure with hypercapnia Is this a current diagnosis for this admission?: Yes Plan: Patient does well when she wears her trilogy continue trilogy (2) Acute exacerbation of chronic obstructive airways disease Is this a current diagnosis for this admission?: No (3) COPD (chronic obstructive pulmonary disease) Qualifiers: COPD type: emphysema Emphysema type: centrilobular Qualified Code(s): J43.2 - Centrilobular emphysema Is this a current diagnosis for this admission?: Yes Plan: continue current therapy, slightly improved - Time Total Critical Time (Minutes): 50 - Plan Summary Plan Summary: Per primary care physician and nurse patient's family has asked that patient be made comfort care only and sent home I concur and have written a complement order in the chart
[2017-04-08] MEDS ORDERED: IPRATROPIUM/ALBUTEROL 0.5-2.5 MG/3 ML AMPUL NEB SCH (14:00)
[2017-04-08] MEDS ORDERED: OXYCODONE HCL IR 5 MG TABLET PO SCH (14:00)
--- NOTE | 2017-04-08 20:58 | PDOC DISCHARGE SUMMARY ---
General - Admit/Disc Date/PCP Admission Date/Primary Care Provider: 04/03/17 10:07 HAZEL WYILE MD Discharge Date: 04/08/17 - Discharge Diagnosis (1) Acute hypercapnic respiratory failure Is this a current diagnosis for this admission?: Yes (2) Hypotension Is this a current diagnosis for this admission?: Yes (3) COPD (chronic obstructive pulmonary disease) Is this a current diagnosis for this admission?: Yes (4) Acute and chronic respiratory failure ([id number]) Is this a current diagnosis for this admission?: Yes (5) Acute and chronic respiratory failure with hypercapnia Is this a current diagnosis for this admission?: Yes (6) Pneumonia due to enterobacter aerogenes Is this a current diagnosis for this admission?: Yes (7) Oropharyngeal dysphagia Is this a current diagnosis for this admission?: Yes (8) DNR (do not resuscitate) discussion Is this a current diagnosis for this admission?: Yes (9) DNR (do not resuscitate) Is this a current diagnosis for this admission?: Yes - Additional Information Resuscitation Status: Full Code Home Medications: Clonazepam [Klonopin 1 mg Tablet] 1 mg PO Q12 04/03/17 Doxepin HCl [Silenor] 6 mg PO QHS 04/03/17 Melatonin/Pyridoxine HCl (B6) [Melatonin 10 mg Tablet] 10 mg PO QHS 04/03/17 Nystatin/Dexameth/Diphen [Magic Mouthwash] 5 ml PO TID 04/03/17 Ondansetron HCl [Zofran 8 mg Tablet] 8 mg PO Q8HP PRN 04/03/17 Oxycodone HCl [Oxycodone HCl ER] 40 mg PO Q8A 04/03/17 Oxycodone HCl/Acetaminophen [Percocet 10-325 mg Tablet] 1 tab PO Q6HP PRN Quetiapine Fumarate [Seroquel Xr] 200 mg PO QHS 04/03/17 Zolpidem Tartrate [Edluar SL 10 mg Tablet] 10 mg SL QHS 04/03/17 History of Present Illness History of Present Illness: Patient 62-year-old female with history of chronic respiratory failure, she came to the office with her spouse for evaluation of severe stupor, she was not awake consistently to finish a sentence in the office. She has multiple hospitalization, recently discharged on 02/17/2017. The initial blood pressure recorded in the office was low subsequent blood pressure recorded in the office showed 130 systolic she was admitted directly from the office to the hospital, when she arrived on the floor the blood pressure recorded was 60 systolic, the arterial blood gas showed pH of 7.25, PCO2 81 consistent with acute respiratory acidosis. She was transferred to ICU, mechanically intubated and vent supported. She was also started on intravenous pressors. Patient is partly not compliant with the use of noninvasive positive pressure ventilation that she is supposed to be on Hospital Course Hospital Course: She has chronic respiratory failure with hypercapnia she was admitted from the office into the hospital when she presented with severe narcosis due to acute respiratory acidosis. When she arrived in the hospital the blood pressure was very low and she was very stuporous requiring mechanical ventilation, she was managed in intensive care unit and treated with intravenous vasopressors, norepinephrine. She was seen in consultation by pulmonary Dr. Rivero. Patient was extubated yesterday but she was unable to maintain normal arterial carbon dioxide, she remains acidotic requiring noninvasive positive pressure ventilation with BiPAP. After prolonged consultation with family she was made a DNR status yesterday, family opted for comfort care measures today and she is being discharged home with hospice. Physical Exam Vital Signs: Temp Pulse Resp BP Pulse Ox 98.1 F 93 19 94/71 L 100 04/08/17 10:00 04/08/17 08:38 04/08/17 10:00 04/08/17 08:31 04/08/17 10:00 Intake & Output 04/07/17 04/08/17 04/09/17 06:59 06:59 06:59 Intake Total 2267 840 Output Total 6610 1921 420 Balance -183 -1085 -420 Weight 64.3 kg 66.5 kg General appearance: PRESENT: mild distress Respiratory exam: PRESENT: clear to auscultation sherry Cardiovascular exam: PRESENT: +S1, +S2 GI/Abdominal exam: PRESENT: soft Results Laboratory Results: 04/08/17 03:46 04/08/17 03:46 04/08/17 04/08/17 04/08/17 03:46 03:46 06:05 WBC 6.4 RBC 3.20 L Hgb 9.5 L Hct 28.2 L MCV 88 MCH 29.5 MCHC 33.5 RDW 13.8 Plt Count 173 Seg Neutrophils % 54.9 Lymphocytes % 27.0 Monocytes % 8.9 Eosinophils % 7.8 H Basophils % 1.4 Absolute Neutrophils 3.5 Absolute Lymphocytes 1.7 Absolute Monocytes 0.6 Absolute Eosinophils 0.5 Absolute Basophils 0.1 Carbonic Acid 1.70 H HCO3/H2CO3 Ratio 17:1 ABG pH 7.34 L ABG pCO2 56.5 H ABG pO2 96.8 ABG HCO3 29.9 H ABG O2 Saturation 96.9 ABG Base Excess 3.4 FiO2 35% Sodium 143.6 Potassium 4.0 Chloride 106 Carbon Dioxide 30 Anion Gap 8 BUN 3 L Creatinine 0.61 Est GFR ( Amer) > 60 Est GFR (Non-Af Amer) > 60 Glucose 97 Calcium 9.4 Magnesium 1.2 L* 04/03/17 14:00 Blood Blood Culture - Final NO GROWTH IN 5 DAYS 04/03/17 11:15 Blood Blood Culture - Final NO GROWTH IN 5 DAYS 04/03/17 04/03/17 04/03/17 11:15 14:00 14:00 Creatine Kinase < 20 L CK-MB (CK-2) 0.98 Troponin I < 0.012 NT-Pro-B Natriuret Pep 220 04/03/17 04/03/17 04/04/17 20:30 20:30 02:55 Creatine Kinase < 20 L 21 L CK-MB (CK-2) 1.00 Troponin I < 0.012 NT-Pro-B Natriuret Pep 04/04/17 02:55 Creatine Kinase CK-MB (CK-2) 0.70 Troponin I < 0.012 NT-Pro-B Natriuret Pep Impressions: Head CT 04/03/17 11:39 IMPRESSION: NO ACUTE INTRACRANIAL IMAGING FINDINGS. EVIDENCE OF ACUTE STROKE: NO. Chest X-Ray 04/08/17 06:00 IMPRESSION: COPD. APPARENT SCARRING IN THE RIGHT LUNG BASE. NO CHANGE.
[2017-04-08] MEDS ORDERED: CLONAZEPAM 1 MG TABLET PO SCH (22:00)
== END 2017-04-08 13:30 | disposition hospice, home (50) | DRG 208 ==
LOC: ER 09:44 → EH 10:07 → 3S 12:57 → ICU 13:29
PROVIDERS: ADMIT Internal Medicine; ATTEND Internal Medicine
PROC: 5A1945Z Respiratory Ventilation, 24-96 Consecutive Hours (ICD-10-PCS; principal; 2017-04-03)
PROC: 0BH17EZ Insertion of Endotracheal Airway into Trachea, Via Natural or Artificial Opening (ICD-10-PCS; 2017-04-03)
PROC: 03H733Z Insertion of Infusion Device into Right Brachial Artery, Percutaneous Approach (ICD-10-PCS; 2017-04-03)
DX: J96.22 Acute and chronic respiratory failure with hypercapnia (principal); J18.9 Pneumonia, unspecified organism; E87.2 Acidosis; C34.90 Malignant neoplasm of unspecified part of unspecified bronchus or lung; Z66 Do not resuscitate; E78.5 Hyperlipidemia, unspecified; I95.9 Hypotension, unspecified; J43.2 Centrilobular emphysema; R13.12 Dysphagia, oropharyngeal phase; G40.909 Epilepsy, unspecified, not intractable, without status epilepticus; F17.290 Nicotine dependence, other tobacco product, uncomplicated; Z99.81 Dependence on supplemental oxygen
CPT/HCPCS: 31500; 36415; 36600; 70450; 71010; 80048; 80053; 80061; 80076; 80202; 80307; 81001; 82140; 82150; 82550; 82553; 82565; 82803; 82962; 83036; 83690; 83735; 83880; 84100; 84439; 84443; 84484; 85025; 85610; 85730; 87040; 87070; 87077; 87086; 87186; 87205; 94002; 94003; 94640; 94660; G8996-GN; G8997-GN; G8998-GN; J0692; J1650; J1956; J2704; J3370; J3475; J3480; J3490; J7030; J7060; J7620; J7685